=== PATIENT | female | born 1990 | race Caucasian/White ===

== ENCOUNTER 2024-06-16 10:38 | Outpatient (OUT) | payer OTHER, SELFPAY ==
--- NOTE | 2024-06-16 10:40 | US_ITS ---
[address] [address] Patient Name: YADI BLAIR MRN: [facility]:[id number] date: 1990 Sex: F Assigned Patient Location: [facility] Current Patient Location: [facility] Accession/Order Number: [id number] Exam Date: 06/16/2024 10:41 Report Date: 06/16/2024 13:00 At the request of: ABBEY OG Procedure: US OB growth EXAMINATION: US OB growth HISTORY: METHADONE USE COMPARISON: No relevant comparison available. TECHNIQUE: Transabdominal sonographic examination was performed for obstetrical and evaluation. FINDINGS: Number: 1 Heart Rate: 135 bpm H.B. /min Amniotic Fluid Volume: 12.8 cm, largest fluid pocket 4.7 cm Breech presentation, longitudinal lie BIOMETRY: BPD: 7.49 cm; 30 weeks 0 days; 23 % HC: 28.49 cm; 31 weeks 2 days; 32.90 % AC: 26.41 cm; 30 weeks 4 days; 44.60 % FL: 5.62 cm; 29 weeks 4 days; 12.40 % EFW:1533.18 g; 27.20 % FL/AC: 21.28 FL/BPD: 75.03 HC/AC: 1.08 GESTATIONAL AGE: Age by EDC: 30 weeks 4 days JESSI by EDC: 2024-08-21 Age by current US: 30 weeks 3 days JESSI by current US: 2024-08-22 US/US OB growth IMPRESSION: Normal interval growth. *Reference: [facility] Practice Guideline for the performance of Obstetric Ultrasound Examinations, April 12, 2007. Electronically authenticated by: PRIYANKA TAO Date: 06/16/2024 13:00
== END 2024-06-16 10:39 | disposition home or self-care (01) ==
LOC: NOMS 10:38
PROVIDERS: Visit Provider Physician Assistant
DX: Z34.93 Encounter for supervision of normal pregnancy, unspecified, third trimester (principal); F11.90 Opioid use, unspecified, uncomplicated; Z3A.30 30 weeks gestation of pregnancy
CPT/HCPCS: 76816

== ENCOUNTER 2024-08-16 05:52 | Inpatient (IN) | payer OTHER, SELFPAY ==
[2024-08-16] VITALS (33 sets, daily range): BP systolic 94–125; BP diastolic 41–79; PULSE 60–87; TEMP 36.2–36.7; O2SAT 94–100
--- OUTSIDE RECORDS SUMMARY | 2024-08-16 05:57 | XMS_ITS | CCD ---
Author Organization [facility] Care Team Providers Care Travel Nurse Name Role Phone HERNANDEZ TORRES Admitting Unavailable HERNANDEZ TORRES Attending Unavailable HERNANDEZ TORRES Consulting Unavailable PRIYANKA TAO V Consulting Unavailable NO FAMILY, PHYSICIAN Primary Care Provider Unava ilable DO Gary Orantes Emergency Provider [phone] MD Chris Draper Emergency Provider [phone] Hernandez ELON Primary Care Physician Demetra Matthews Unavailable Unavailable BROOK DUMONT Primary Care Physician [phone] Bakari Jarquin Attending Unavailable Hilaria Ward Attending Unavailable Tito Fortune Attending Unavailable NO FAMILY, PHYSICIAN Primary Care Provider Unava ilable DO Bj Mchugh Emergency Provider [phone] NO FAMILY, PHYSICIAN Primary Care Provider Unava ilable ALBA Ugarte Emergency Provider Unallocated , Princes Provider Primary Care Provi jaclyn Unallocated MD Noms Provider Primary Care Provi jaclyn Shea Og Admitting Unavailable Shea Og Attending Unavailable NO FAMILY, PHYSICIAN Primary Care Unavailable NO FAMILY, PHYSICIAN Primary Care Unavailable Alfredo Fuchs Admitting Unavailable Alfredo Fuchs Attending Unavailable NO FAMILY, PHYSICIAN Primary Care Unavailable Wanda Kilgore Admitting Unavailable Wanda Kilgore Attending Unavailable NO FAMILY, PHYSICIAN Primary Care Unavailable Yassine Ugarte Admitting Unavailable Yassine Ugarte Attending Unavailable NO FAMILY, PHYSICIAN Primary Care Provider Unava ilable Alfredo Fuchs DO Attending Provider Wanda Kilgore MD Attending Provider Josette LEON, Shea Tejeda Attending Provider [phone] SHEA OG Attending Unavailable SHEA OG Attending Unavailable PEDRO JARA Attending Unavailable UNALLOCATED, NOMS PROVIDER Referring Unava ilable KIMBERLY GONZALES Attending Unavailable PEDRO JARA Attending Unavailable ALFREDO FUCHS Attending Unavailable JOSETTE, SHEA Attending Unavailable JOSETTE, SHEA Attending Unavailable SHEA OG Attending Unavailable SHEA OG Attending Unavailable ALFREDO FUCHS Attending Unavailable Allergies Allergy Classification Reported Allergen(s) Allergy Type Date of Onset Reaction(s) Facility (8 sources) Naproxen; Translations: [naproxen] Drug Allergy 4 Unknown Reaction [facility] Repository (8 sources) traZODone; Translations: [traZODone] Drug Allergy 4 Rash [facility] Repository (20 sources) Naproxen; Translations: [naproxen] Drug Allergy 4 Unknown cause [facility] (20 sources) traZODone; Translations: [trazodone] Drug Allergy 4 Vomiting (disorder), Eruption of skin (disorder), Rash, GI intolerance [facility] (1 source) Naproxen Drug Allergy [address] [facility] Repository (1 source) traZODone Drug Allergy [address] [facility] Repository Medications Current Medications Medication Drug Class(es) Dates Sig (Normalized) Sig (Original) cefuroxime 250 mg oral tablet (10 sources) Cephalosporin Antibacterial Start: 03-04-2024 End: 06-16-2024 take 1 tablet by mouth once daily cefuroxime (Ceftin) 250 MG tablet Indications: Acne vulgaris Take 1 tablet, by mouth, once daily, 30 days 30 tablet 11 03/04/2024 06/16/2024 Discontinued clobetasol propionate 0.5 mg/ml topical solution (20 sources) Corticosteroid Start: 06-30-2024 clobetasol (Temovate) 0.05 % external solution Indications: Psoriasis vulgaris (CMS/HCC) Apply to scalp sparingly once a day as needed for itching. Hold when clear or asymptomatic/30 day supply 25 mL 1 06/30/2024 Active Start: 03-04-2024 End: 06-16-2024 clobetasol (Temovate) 0.05 % external solution Indications: Psoriasis vulgaris (CMS/HCC) Apply to scalp, once a day when flared, do not use one the face, groin, or underarms, 30 day supply 50 mL 11 03/04/2024 06/16/2024 Discontinued Start: 03-31-2022 End: 12-19-2023 Clobetasol 0.05 % shampoo Di scontinued 1 APPLIC TOPICAL Daily March 30, 2022 11:00pm December 19, 2023 1:35pm lidocaine 0.05 mg/mg medicated patch (3 sources) Antiarrhythmic, Amide Local Anesthetic Start: 08-07-2022 Lidoderm 5% Patch 1 patch(es), Topical, Daily, 7 EA, Refill(s) 0, apply 12 hours on and 12 hours off daily, [facility] #[id number], 165.1, cm, 09/08/22 14:14:00 EST, Height/Length Dosing, 55, kg, 09/08/22 14:14:00 EST, Weight Dosing Start Date: 09/08/22 Status: Ordered Medical [facility] (2 sources) Start: 04-02-2022 Medical [facility] Start Date: 04/02/22 Status: Ordered Methadone (20 sources) Opioid Agonist Start: 08-26-2021 methadone Refi lls(s) 0 Start Date: 08/26/21 Status: Ordered Start: 05-16-2020 take 170 mg by mouth once tomasz y Methadone 10 mg/5 mL Solution Active 170 MG PO Daily May 16, 2020 12:00am Start: 05-16-2020 take 160 mg by mouth once tomasz y Methadone Active 160 MG PO Daily May 16, 2020 12:00am methadone (Metha dose) 40 MG dispersible tablet 1 (one) time each day at the same time Active methocarbamol 750 mg oral tablet (2 sources) Muscle Relaxant Start: 09-08-2022 End: 09-11-2022 take 1 tablet by mouth three times daily Robaxin-750 oral tablet 1,500 mg = 2 tab(s), Oral, TID, X 3 day(s), # 18 tab(s), Refills(s) 0, Pharmacy: [facility] #[id number], 165.1, cm, 09/08/22 14:14:00 EST, Height/Length Dosing, 55, kg, 09/08/22 14:14:00 EST, Weight Dosing Start Date: 09/08/22 Stop Date: 09/11/22 Status: Ordered Start: 08-07-2022 End: 08-10-2022 take 1 tablet by mouth three times daily Robaxin 500 mg Tab 500 mg = 1 tab(s), Oral, TID, X 3 day(s), # 9 tab(s), Refills(s) 0, Pharmacy: [facility] #[id number], 164, cm, 08/07/22 3:28:00 EST, Height/Length Dosing, 53, kg, 08/07/22 3:28:00 EST, Weight Dosing Start Date: 08/07/22 Stop Date: 08/10/22 Status: Ordered multivitamin () 27-0.8 MG tablet (14 sources) Start: 02-02-2024 End: 06-16-2024 take 1 tablet by mouth once daily multivitamin () 27-0.8 MG tablet Indications: care, subsequent in first trimester Take 1 tablet by mouth Daily 30 tablet 11 02/02/2024 06/16/2024 Discontinued Start: 02-02-2024 End: 02-01-2025 take 1 tablet by mouth once daily multivitamin () 27-0.8 MG tablet Indications: care, subsequent in first trimester Take 1 tablet by mouth Daily 30 tablet 11 02/02/2024 02/01/2025 Active MV & Min w/FA-DHA ( Gummies) 0.18-25 MG chewable tablet (7 sources) Start: 05-03-2024 End: 06-16-2024 MV & Min w/FA-DHA ( Gummies) 0.18-25 MG chewable tablet Indications: 24 weeks gestation of Chew 1 tablet Daily 30 tablet 11 05/03/2024 06/16/2024 Discontinued Start: 05-03-2024 MV & Min w/FA-DHA ( Gummies) 0.18-25 MG chewable tablet Indications: 24 weeks gestation of Chew 1 tablet Daily 30 tablet 11 05/03/2024 Active Completed/Discontinued Medications Medication Drug Class(es) Dates Sig (Normalized) Sig (Original) [id number] 200 actuat albuterol 0.09 mg/actuat metered dose inhaler (3 sources) beta2-Adrenergic Agonist Start: 07-15-2023 End: 12-19-2023 take 1 puff(s) by inhalation every four to six hours as needed for wheezing Albuterol Sulfate (Proventil Hfa) 90 mcg/actuation HFA aerosol inhaler Discontinued 2 PUFF INHALATION EVERY 4-6 HOURS as needed for Shortness Of Breath Or Wheezing July 15, 2023 12:00am December 19, 2023 1:35pm with spacer amoxicillin 500 mg oral capsule (5 sources) Penicillin-class Antibacterial Start: 03-31-2022 End: 03-31-2022 Amoxicillin 500 mg capsule Discontinued MG March 30, 2022 11:00pm March 31, 2022 9:23pm Start: 03-31-2022 End: 03-31-2022 Amoxicillin Discontinued MG March 31, 2022 12:00am March 31, 2022 10:23pm benzonatate 200 mg oral capsule (3 sources) Non-narcotic Antitussive Start: 07-15-2023 End: 12-19-2023 take 1 capsule by mouth three times daily as needed for cough Benzonatate 200 mg capsule Discontinued 200 MG PO Three times daily as needed for Cough July 15, 2023 12:00am December 19, 2023 1:35pm fluocinonide 0.5 mg/ml topical cream (5 sources) Corticosteroid Start: 03-31-2022 End: 12-19-2023 Fluocinonide 0.05 % cream Discontinued 1 APPLIC TOPICAL Daily March 30, 2022 11:00pm December 19, 2023 1:36pm ibuprofen 600 mg oral tablet (12 sources) Nonsteroidal Anti-inflammatory Drug Start: 01-19-2021 End: 04-20-2021 take 1 tablet by mouth every six hours as needed for pain Ibuprofen 600 mg tablet Discontinued 600 MG PO Q6H as needed for pain January 18, 2021 11:00pm April 20, 2021 6:08pm Start: 05-16-2019 End: 05-16-2020 take 1 tablet by mouth every six hours as needed for pain Ibuprofen 600 mg tablet Discontinued 600 MG PO Q6H as needed for pain May 16, 2019 12:00am May 16, 2020 12:52am mometasone furoate 1 mg/ml topical cream (5 sources) Corticosteroid Start: 03-31-2022 End: 12-19-2023 Mometasone 0.1 % cream Discontinued 1 APPLIC TOPICAL Daily March 30, 2022 11:00pm December 19, 2023 1:36pm ondansetron 4 mg disintegrating oral tablet (20 sources) Serotonin-3 Receptor Antagonist Start: 07-15-2023 End: 12-19-2023 Ondansetron 4 mg tablet,disintegratin g Discontinued 4 MG PO every 6 to 8 hours as needed for Nausea July 15, 2023 12:00am December 19, 2023 1:36pm Start: 03-28-2022 End: 03-31-2022 take 1 tablet by mouth every eight hours as needed for nausea and vomiting Ondansetron 8 mg tablet,disintegrating Discontinued 8 MG PO Q8H as needed for nausea and vomiting 04 15March 27, 2022 11:00pm March 31, 2022 8:50pm Start: 01-12-2022 End: 03-31-2022 take 1 tablet by mouth every six hours as needed for nausea and vomiting Ondansetron 4 mg tablet,disintegrating Discontinued 4 MG PO Q6H as needed for nausea and vomiting January 11, 2022 11:00pm March 31, 2022 8:50pm Start: 04-20-2021 End: 01-12-2022 take 1 tablet by mouth every eight hours as needed for nausea and vomiting Ondansetron Hcl (Zofran) 4 mg tablet Discontinued 4 MG PO Q8H as needed for nausea and vomiting 6 April 19, 2021 11:00pm January 12, 2022 6:07am predniSONE 20 mg oral tablet (4 sources) Start: 12-19-2023 End: 07-01-2024 Prednisone 20 mg tablet Discontinued MG TABLET December 18, 2023 11:00pm July 01, 2024 3:23pm Start: 12-19-2023 Prednisone Act mark MG TABLET December 19, 2023 12:00am Start: 09-08-2022 End: 09-13-2022 take 3 tablets by mouth once daily predniSONE 20 mg Tab 60 mg = 3 tab(s), Oral, Daily, X 5 day(s), # 15 tab(s), Refills(s) 0, Pharmacy: [facility] #[id number], 165.1, cm, 09/08/22 14:14:00 EST, Height/Length Dosing, 55, kg, 09/08/22 14:14:00 EST, Weight Dosing Start Date: 09/08/22 Stop Date: 09/13/22 Status: Ordered Start: 08-07-2022 End: 08-12-2022 take 1 tablet by mouth once daily predniSONE 50 mg Tab 50 mg = 1 tab(s), Oral, Daily, X 5 day(s), # 5 tab(s), Refills(s) 0, Pharmacy: [facility] #[id number], 164, cm, 08/07/22 3:28:00 EST, Height/Length Dosing, 53, kg, 08/07/22 3:28:00 EST, Weight Dosing Start Date: 08/07/22 Stop Date: 08/12/22 Status: Ordered promethazine hydrochloride 25 mg oral tablet (6 sources) Phenothiazine Start: 05-16-2020 End: 01-12-2022 take 1 tablet by mouth every six hours as needed for nausea Promethazine 25 mg Tablet Discontinued 25 MG PO Q6H as needed for Nausea May 16, 2020 12:00am January 12, 2022 6:07am Problems Active Problems Problem Classification Problem Date Documented Da te Episodic/Chronic Administrative/social admission (2 sources) Drug seeking behavior 08-26-2021 Episodic Anxiety disorders (2 sources) Anxiety 08-07-2022 Chronic Cardiac dysrhythmias (2 sources) Tachycardia 04-02-2022 Episodic Conditions associated with dizziness or vertigo (6 sources) Dizziness; Translations: [Dizziness and giddiness] 04-02-2022 Episodic Contraceptive and procreative management (2 sources) Sterilization requested; Translations: [Encounter for sterilization] 08-03-2024 Episodic Deficiency and other anemia (2 sources) Anemia 04-02-2022 Episodic Early or threatened labor (3 sources) False labor at or after 37 completed weeks of gestation; Translations: [FALSE LABOR AT/AFTR 37 CMPL WK GEST] Onset: 05-13-2019 Episodic distress and abnormal forces of labor (6 sources) Precipitate labor - delivered; Translations: [Precipitate labor] 05-14-2019 Episodic Immunizations and screening for infectious disease (8 sources) Patient encounter status; Translations: [Encounter for screening for diabetes mellitus] 05-03-2024 Episodic Influenza (3 sources) Influenza; Translations: [Influenza due to unidentified influenza virus with other respiratory manifestations] 07-15-2023 Episodic Malaise and fatigue (2 sources) Fatigue 04-02-2022 Episodic Malposition; malpresentation (2 sources) Breech presentation; Translations: [Maternal care for breech presentation, not applicable or unspecified] 08-03-2024 Episodic Menstrual disorders (3 sources) Missed period; Translations: [Irregular menstruation, unspecified] Onset: 06-15-2024 05-03-2024 Chronic Nausea and vomiting (18 sources) Nausea and vomiting; Translations: [Nausea with vomiting, unspecified] 01-12-2022 Episodic Other complications of (6 sources) No care; Translations: [Supervision of with insufficient care, unspecified trimester] 05-14-2019 Episodic Other complications of (1 source) Other specified related conditions, third trimester; Translations: [Other specified related conditions, third trimester] Onset: 07-01-2024 Episodic Other endocrine disorders (2 sources) Hypoglycemia 04-02-2022 Chronic Other female genital disorders (6 sources) History of past delivery; Translations: [Status post vaginal delivery] 01-19-2021 Episodic Other inflammatory condition of skin (2 sources) Guttate psoriasis; 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-2024 Chronic Other inflammatory condition of skin (2 sources) Psoriasis vulgaris; Translations: [Psoriasis vulgaris] 03-04-2024 Chronic Other lower respiratory disease (5 sources) Dyspnea; Translations: [Dyspnea, unspecified] 03-31-2022 Episodic Other and delivery including normal (20 sources) Term delivered; Translations: [Encounter for full-term uncomplicated delivery] Onset: 07-14-2024 05-14-2019 Episodic Other skin disorders (2 sources) Eruption; Translations: [Rash and other nonspecific skin eruption] 12-19-2023 Episodic Residual codes; unclassified (2 sources) Flushing 04-02-2022 Episodic Residual codes; unclassified (2 sources) Gestation period, 24 weeks; Translations: [24 weeks gestation of ] 05-03-2024 Episodic Residual codes; unclassified (2 sources) Gestation period, 28 weeks; Translations: [28 weeks gestation of ] 06-02-2024 Episodic Residual codes; unclassified (2 sources) Gestation period, 30 weeks; Translations: [30 weeks gestation of ] 06-16-2024 Episodic Residual codes; unclassified (2 sources) Gestation period, 33 weeks; Translations: [33 weeks gestation of ] 07-04-2024 Episodic Residual codes; unclassified (2 sources) Gestation period, 35 weeks; Translations: [35 weeks gestation of ] 07-20-2024 Episodic Residual codes; unclassified (2 sources) Gestation period, 37 weeks; Translations: [37 weeks gestation of ] 08-03-2024 Episodic Residual codes; unclassified (2 sources) Gestation period, 38 weeks; Translations: [38 weeks gestation of ] 08-10-2024 Episodic Residual codes; unclassified (1 source) 38 weeks gestation of ; Translations: [38 WEEKS GESTATION OF ] Onset: 06-06-2019 Spondylosis; intervertebral disc disorders; other back problems (2 sources) Pain in thoracic spine; Translations: [Pain in thoracic spine] Onset: 08-07-2022 Episodic Substance-related disorders (14 sources) Drug use complicating , third trimester; Translations: [Opioid dependence, uncomplicated] Onset: 06-06-2019 05-14-2019 Chronic Comment on above: Added secondary to d ocumentation in Social History. Substance-related disorders (4 sources) Finding related to substance use; Translations: [Opioid use, unspecified, uncomplicated] 06-02-2024 Episodic Unclassified (20 sources) OB Reminders Onset: 03-04-2024 03-04-2024 Viral infection (6 sources) Viral disease; Translations: [Viral infection, unspecified] 04-20-2021 Episodic Past or Other Problems Problem Classification Problem Date Documented Da te Episodic/Chronic Other complications of (2 sources) Finding related to ; Translations: [ related conditions, unspecified, second trimester] 02-29-2024 Episodic Other skin disorders (2 sources) Acne vulgaris; Translations: [Acne vulgaris] 03-04-2024 Episodic Other skin disorders (1 source) Rash and other nonspecific skin eruption; Translations: [Rash and other nonspecific skin eruption] Onset: 12-19-2023 Episodic Residual codes; unclassified (2 sources) Gestation period, 15 weeks; Translations: [15 weeks gestation of ] 02-29-2024 Episodic NEGATED: Highlighted row has been ruled out!Unclassified (20 sources) No known active problems 03-04-2024 Results Test Name Value Interpretation Reference Range Facility Urinalysis macro (dipstick) panel (U)on 08-10-2024 Bilirubin, UA Negative Negative - 4(70) +++ mg/dL [facility] Blood, UA Negative Negative - 50 Loi/mcL [facility] Clarity, UA Clear [facility] Color, UA Yellow [facility] Glucose, UA Negative Negative - 1999(110) ++++ mg/dL [facility] Interpretation and review of laboratory results Abnormal [facility] Ketones, UA Positive Negative - 160(16) ++++ mg/dL [facility] Leukocytes, UA Trace Negative - 500+++ Kwaku/mcL [facility] Nitrite, UA Negative Negative - Positive [facility] pH, UA 6 5 - 9 [facility] Protein, UA Trace Negative - 1999(20) ++++ mg/dL [facility] Spec Grav, UA 1.03 1 - 1.03 [facility] Urobilinogen, UA 0.2 0.2 - 12 mg/dL [facility] Urinalysis macro (dipstick) panel (U)on 08-03-2024 Bilirubin, UA Negative Negative - 4(70) +++ mg/dL [facility] Blood, UA Negative Negative - 50 Loi/mcL [facility] Clarity, UA Clear [facility] Color, UA Yellow [facility] Glucose, UA Positive Negative - 1999(110) ++++ mg/dL [facility] Interpretation and review of laboratory results Abnormal [facility] Ketones, UA Positive Negative - 160(16) ++++ mg/dL [facility] Leukocytes, UA Positive Negative - 500+++ Kwaku/mcL [facility] Nitrite, UA Negative Negative - Positive [facility] pH, UA 7 5 - 9 [facility] Protein, UA Positive Negative - 1999(20) ++++ mg/dL [facility] Spec Grav, UA 1.03 1 - 1.03 [facility] Urobilinogen, UA 1.0 0.2 - 12 mg/dL [facility] Urinalysis macro (dipstick) panel (U)on 07-20-2024 Bilirubin, UA Positive Negative - 4(70) +++ mg/dL [facility] Comment on above: small Blood, UA Negative Negative - 50 Loi/mcL [facility] Clarity, UA Clear [facility] Color, UA Yellow [facility] Glucose, UA Positive Negative - 1999(110) ++++ mg/dL [facility] Comment on above: 100 Interpretation and review of laboratory results Abnormal [facility] Ketones, UA Negative Negative - 160(16) ++++ mg/dL [facility] Leukocytes, UA Negative Negative - 500+++ Kwaku/mcL [facility] Nitrite, UA Negative Negative - Positive [facility] pH, UA 6 5 - 9 [facility] Protein, UA Positive Negative - 1999(20) ++++ mg/dL [facility] Comment on above: 30 Spec Grav, UA 1.03 1 - 1.03 [facility] Urobilinogen, UA 1.0 0.2 - 12 mg/dL [facility] US OB limitedon 07-14-2024 US OB limited [facility] [place] [address] Ultrasound Report Signed Patient: Cyndie Blair MR#: [id number] : 1990 Acct:[id number] Age/Sex: 34 / F ADM Date: 07/14/24 Loc: Room: Type: [facility] Attending Dr: Shea Og PA-C Ordering Provider: Shea GARBER Date of Service: 07/14/24 US/US OB limited: Z34.93,F11.90 Copies to: Shea GARBER US OB limited 07/14/2024 2:05 PM SIGNS AND SYMPTOMS: Check growth COMPARISON: None. TECHNIQUE: Limited pelvic ultrasound using transvesical sonography. FINDINGS: An intrauterine is identified. The visualized fetus has an estimated gestational age of 4 weeks and 2 days. A heart rate is identified at 161 bpm. A normal amount of amniotic fluid is present. There is no evidence for placenta previa or subchorionic hemorrhage. Estimated weight is 5 lbs. 4 oz. Pelvic survey reveals no gross abnormalities. The cervix measures 3.3 cm in length. US/US OB limited IMPRESSION: Single live IUP with an estimated gestational age of 34w2d weeks/days with an estimated date of delivery of 08/23/2024 and normal heart rate. Estimated weight is 5 lbs. 4 oz. Impression dictated by: David Way M.D.07/14/2024 9:14 PM Dictation Location: [facility] Tech: Maria C Colvin Transcribed By: AHMET 07/14/242113 Dictated By: David Way II, MD 07/14/242110 Signed By: 07/14/242113 Normal [facility] Urinalysis macro (dipstick) panel (U)on 07-04-2024 Bilirubin, UA Negative Negative - 4(70) +++ mg/dL [facility] Blood, UA Negative Negative - 50 Loi/mcL [facility] Clarity, UA Clear [facility] Color, UA Yellow [facility] Glucose, UA Negative Negative - 1999(110) ++++ mg/dL [facility] Interpretation and review of laboratory results Abnormal [facility] Ketones, UA Positive Negative - 160(16) ++++ mg/dL [facility] Comment on above: trace Leukocytes, UA Trace Negative - 500+++ Kwaku/mcL [facility] Nitrite, UA Negative Negative - Positive [facility] pH, UA 6.5 5 - 9 [facility] Protein, UA Negative Negative - 1999(20) ++++ mg/dL [facility] Spec Grav, UA 1.03 1 - 1.03 [facility] Urobilinogen, UA 1.0 0.2 - 12 mg/dL [facility] Urinalysis macro (dipstick) panel (U)on 06-16-2024 Bilirubin, UA Negative Negative - 4(70) +++ mg/dL [facility] Blood, UA Negative Negative - 50 Loi/mcL [facility] Clarity, UA Clear [facility] Color, UA Aubrie [facility] Glucose, UA Positive Negative - 1999(110) ++++ mg/dL [facility] Comment on above: 100 Interpretation and review of laboratory results Abnormal [facility] Ketones, UA Negative Negative - 160(16) ++++ mg/dL [facility] Leukocytes, UA Negative Negative - 500+++ Kwaku/mcL [facility] Nitrite, UA Negative Negative - Positive [facility] pH, UA 7 5 - 9 [facility] Protein, UA Negative Negative - 2000(20) ++++ mg/dL [facility] Spec Grav, UA 1.03 1 - 1.03 [facility] Urobilinogen, UA 0.2 0.2 - 12 mg/dL [facility] A1C with Estimated Average G luon 06-15-2024 Glucose [Mass/Vol] 105 mg/dL Normal [facility] Comment on above: Result Comment: PERF ORMED BY: [place] [address] PATHOLOGIST GUM COOK EDD SALINAS M.D. Performed By: #### R RI W RFX, HCV RX PCR #### [facility] , #### CBC, A1C WT eA #### [facility] [address] [place] [address] HbA1c (Bld) [Mass fraction] 5.3 % Normal 4.3-5.6 [facility] Comment on above: Result Comment: Incr eased risk for diabetes: 5.7 - 6.4 diabetes: >6.4 glycemic control for adults with diabetes: <7.0 Performed By: #### R RI W RFX, HCV RX PCR #### [facility] , #### CBC, A1C WT eA #### [facility] [address] Basophils Auto (Bld) [#/Vol] Ordered By: Alfredo Fuchs on 06-15-2024 Basophils (Bld) [#/Vol] Automated basoph il count 0.0-0.[address] [facility] Basophils/100 WBC Auto (Bld) Ordered By: Alfredo Fuchs on 06-15-2024 Basophils/100 WBC (Bld) Automated basoph il % . [facility] Blood estimated average gluc ose determination by estimation from glycated hemoglobinOrdered By: Alfredo Fuchs on 06-15-2024 Average glucose Estimated from glycated hemoglobin (Bld) [Mass/Vol] Glucose mean value [Mass/volume] in Blood Estimated from glycated hemoglobin [facility] Complete Blood Count Auto Di ffon 06-15-2024 Basophils (Bld) [#/Vol] 0.0 10*3/uL Normal 0.0-0.2 [facility] Comment on above: Result Comment: PERF ORMED BY: [place] [address] PATHOLOGIST GUM COOK EDD SALINAS M.D. Performed By: #### R RI W RFX, HCV RX PCR #### [facility] , #### CBC, A1C WTH eA #### [address] Basophils/100 WBC (Bld) 0.3 % Normal . T ramiro [facility] Comment on above: Performed By: #### R RI W RFX, HCV RX PCR #### [facility] , #### CBC, A1C WTH eA #### [place] [address] [place] Eosinophils (Bld) [#/Vol] 0.1 10*3/uL Normal 0.0-0.45 [facility] Comment on above: Performed By: #### R RI W RFX, HCV RX PCR #### [facility] , #### CBC, A1C WTH eA #### [place] [address] [place] Eosinophils/100 WBC (Bld) 0.8 % Normal . [facility] Comment on above: Performed By: #### R RI W RFX, HCV RX PCR #### [facility] , #### CBC, A1C WTH eA #### [address] Erythrocyte distribution width (RBC) [Ratio] 16.9 % High 11.9-15.3 [facility] Comment on above: Performed By: #### R RI W RFX, HCV RX PCR #### [facility] , #### CBC, A1C WTH eA #### [address] Hematocrit (Bld) [Volume fraction] 30.1 % Low 34.0-46.4 [facility] Comment on above: Performed By: #### R RI W RFX, HCV RX PCR #### [facility] , #### CBC, A1C WTH eA #### [address] Hemoglobin (Bld) [Mass/Vol] 9.3 g/dL Low 11.8-15.4 [facility] Comment on above: Performed By: #### R RI W RFX, HCV RX PCR #### [facility] , #### CBC, A1C WTH eA #### [address] Lymphocytes (Bld) [#/Vol] 1.0 10*3/uL Normal 1.00-4.8 [facility] Comment on above: Performed By: #### R RI W RFX, HCV RX PCR #### [facility] , #### CBC, A1C WTH eA #### [address] Lymphocytes/100 WBC (Bld) 15.0 % Normal . [facility] Comment on above: Performed By: #### R RI W RFX, HCV RX PCR #### [facility] , #### CBC, A1C WTH eA #### [address] MCH (RBC) [Entitic mass] 22.4 pg Low 24.7-34.3 [facility] Comment on above: Performed By: #### R RI W RFX, HCV RX PCR #### [facility] , #### CBC, A1C WTH eA #### [place] [address] [place] MCV (RBC) [Entitic vol] 72.3 fL Low 80-100 [facility] Comment on above: Performed By: #### R RI W RFX, HCV RX PCR #### [facility] , #### CBC, A1C WTH eA #### [address] Mean Corpuscular HGB Conc 31.0 g/dL Low 32.0-35.0 [facility] Comment on above: Performed By: #### R RI W RFX, HCV RX PCR #### [facility] , #### CBC, A1C WTH eA #### [address] Monocytes (Bld) [#/Vol] 0.3 10*3/uL Normal 0.0-0.8 [facility] Comment on above: Performed By: #### R RI W RFX, HCV RX PCR #### [facility] , #### CBC, A1C WTH eA #### [place] [address] [place] Monocytes/100 WBC (Bld) 5.0 % Normal . [facility] Comment on above: Performed By: #### R RI W RFX, HCV RX PCR #### [facility] , #### CBC, A1C WTH eA #### [place] [address] [place] Neutrophils (Bld) [#/Vol] 5.5 10*3/uL Normal 1.8-7.7 [facility] Comment on above: Performed By: #### R RI W RFX, HCV RX PCR #### [facility] , #### CBC, A1C WTH eA #### [place] [address] [place] Neutrophils/100 WBC (Bld) 78.9 % Normal . [facility] Comment on above: Performed By: #### R RI W RFX, HCV RX PCR #### [facility] , #### CBC, A1C WTH eA #### [place] [address] [place] NRBC% 0.1 /100{WBC} Normal 0-0.5 [facility] Comment on above: Performed By: #### R RI W RFX, HCV RX PCR #### [facility] , #### CBC, A1C WTH eA #### [address] Platelet mean volume (Bld) [Entitic vol] 8.7 fL Normal 6.3-10.7 [facility] Comment on above: Performed By: #### R RI W RFX, HCV RX PCR #### [facility] , #### CBC, A1C WTH eA #### [place] [address] [place] Platelets (Bld) [#/Vol] 158 10*3/uL Normal 150-450 [facility] Comment on above: Performed By: #### R RI W RFX, HCV RX PCR #### [facility] , #### CBC, A1C WTH eA #### [place] [address] [place] RBC (Bld) [#/Vol] 4.16 10*6/uL Normal 3.60-5.00 [facility] Comment on above: Performed By: #### R RI W RFX, HCV RX PCR #### [facility] , #### CBC, A1C WTH eA #### [place] [address] [place] WBC (Bld) [#/Vol] 7.0 10*3/uL Normal 3.8-11.6 [facility] Comment on above: Performed By: #### R RI W RFX, HCV RX PCR #### [facility] , #### CBC, A1C WTH eA #### [address] [place] [address] [facility] Diagnostic impression interp retation by molecular genetics method narrativeOrdered By: Alfredo Fuchs on 06-15-2024 Diagnostic impression Molgen Willian (Unsp spec) [Interp] Diagnostic impression [Interpretation] in Specimen Narrative . [facility] Comment on above: Positive HCV antibod y screen without the presence of HCVRNA is consistent with a resolved past infection or a falsepositive HCV antibody. Consider repeat testing after onemonth.Performed at: - [facility] [id number] Director: Anson Mason PhD, Phone: [phone] at: [facility] [id number] Director: Parvin Weber MD, Phone: [phone] Eosinophils Auto (Bld) [#/Vo l]Ordered By: Alfredo Fuchs on 06-15-2024 Eosinophils (Bld) [#/Vol] Automated eosinophil count 0.0-0.[address] [facility] Eosinophils/100 WBC Auto (Bl d)Ordered By: Alfredo Fuchs on 06-15-2024 Eosinophils/100 WBC (Bld) Automated eosinophil % . [facility] Erythrocyte distribution wid th Auto (RBC) [Ratio]Ordered By: Alfredo Fuchs on 06-15-2024 Erythrocyte distribution width (RBC) [Ratio] Erythrocyte distribution width [Ratio] by Automated count High 11.9-15.[address] [facility] Hematocrit Auto (Bld) [Volum e fraction]Ordered By: Alfredo Fuchs on 06-15-2024 Hematocrit (Bld) [Volume fraction] Hematocrit [Volume Fraction] of Blood by Automated count Low 34.0-46.[address] [facility] Hemoglobin A1c/Hemoglobin.to desean in BloodOrdered By: Alfredo Fuchs on 06-15-2024 HbA1c (Bld) [Mass fraction] Hemoglobin A1c percentage 4.3-5.[address] [facility] Comment on above: Increased risk for d iabetes: 5.7 - 6.4diabetes: >6.4glycemic control for adults with diabetes: <7.0 Hemoglobin [Mass/volume] in BloodOrdered By: Alfredo Fuchs on 06-15-2024 Hemoglobin (Bld) [Mass/Vol] Hemoglobin [Mass/volume] in Blood Low 11.8-15.[address] [facility] Hep C Ab wRfx to Qnt PCRon 1 08-16-2023 Hepatitis C Quantitation Not detected Normal . [facility] Comment on above: Performed By: #### R RI W RFX, HCV RX PCR #### [facility] , #### CBC, A1C WTH eA #### [address] Hepatitis C Virus Antibody Reactive Critically abnormal Non Reactive [facility] Comment on above: Performed By: #### R RI W RFX, HCV RX PCR #### [facility] , #### CBC, A1C WTH eA #### [address] Interpretation Comment Normal . [facility] Comment on above: Result Comment: Posi tive HCV antibody screen without the presence of HCV RNA is consistent with a resolved past infection or a false positive HCV antibody. Consider repeat testing after one month. Performed at: - [facility] [id number] Cpo: Anson Mason PhD, Phone: [phone] Performed at: - [facility] [id number] Cpo: Parvin Weber MD, Phone: [phone] PERFORMED BY: [place] [address] PATHOLOGIST GUM COOK EDD SALINAS M.D. Performed By: #### R RI W RFX, HCV RX PCR #### [facility] , #### CBC, A1C WTH eA #### [address] Test Information: Comment Normal . [facility] Comment on above: Result Comment: The quantitative range of this assay is 15 IU/mL to 100 million IU/mL. Performed By: #### R RI W RFX, HCV RX PCR #### [facility] , #### CBC, A1C WTH eA #### [facility] [address] Hepatitis C virus IgG Ab [Pr esence] in Serum or Plasma by ImmunoassayOrdered By: Alfredo Fuchs on 06-15-2024 HCV IgG IA Ql Hepatitis C virus IgG Ab [Presence] in Serum or Plasma by Immunoassay Abnormal Non Reactive [facility] Leukocytes [#/volume] correc dano for nucleated erythrocytes in Blood by Automated counOrdered By: Alfredo Fuchs on 06-15-2024 WBC corrected for nucl RBC Auto (Bld) [#/Vol] Leukocytes [#/volume] corrected for nucleated erythrocytes in Blood by Automated coun 3.8-11.[address] [facility] Lymphocytes Auto (Bld) [#/Vo l]Ordered By: Alfredo Fuchs on 06-15-2024 Lymphocytes (Bld) [#/Vol] Lymphocytes [#/volume] in Blood by Automated count 1.00-4.[address] [facility] Lymphocytes/100 WBC Auto (Bl d)Ordered By: Alfredo Fuchs on 06-15-2024 Lymphocytes/100 WBC (Bld) Lymphocytes/100 leukocytes in Blood by Automated count . [facility] MCH Auto (RBC) [Entitic mass ]Ordered By: Alfredo Fuchs on 06-15-2024 MCH (RBC) [Entitic mass] MCH [Entitic ma ss] by Automated count Low 24.7-34.[address] [facility] MCHC Auto (RBC) [Mass/Vol]Or dered By: Alfredo Fuchs on 06-15-2024 MCHC (RBC) [Mass/Vol] MCHC [Mass/volume] by Automated count Low 32.0-35.[address] [facility] MCV Auto (RBC) [Entitic vol] Ordered By: Alfredo Fuchs on 06-15-2024 MCV (RBC) [Entitic vol] MCV [Entitic volume] by Automated count Low 80-[address] [facility] Monocytes Auto (Bld) [#/Vol] Ordered By: Alfredo Fuchs on 06-15-2024 Monocytes (Bld) [#/Vol] Automated blood monocyte count 0.0-0.[address] [facility] Monocytes/100 WBC Auto (Bld) Ordered By: Alfredo Fuchs on 06-15-2024 Monocytes/100 WBC (Bld) Automated monocy te % . [facility] Neutrophils Auto (Bld) [#/Vo l]Ordered By: Alfredo Fuchs on 06-15-2024 Neutrophils (Bld) [#/Vol] Neutrophils [#/volume] in Blood by Automated count 1.8-7.[address] [facility] Neutrophils/100 WBC Auto (Bl d)Ordered By: Alfredo Fuchs on 06-15-2024 Neutrophils/100 WBC (Bld) Automated neutrophil % . [facility] No Panel InformationOrdered By: Alfredo Fuchs on 06-15-2024 Hepatitis C RNA Qnt (PCR) Test Info Comment . [facility] Comment on above: The quantitative ran ge of this assay is 15 IU/mL to 100million IU/mL. Nucleated erythrocytes [Pres ence] in Blood by Automated countOrdered By: Alfredo Fuchs on 06-15-2024 Nucleated RBC Auto Ql (Bld) Nucleated erythrocytes [Presence] in Blood by Automated count 0-0.[address] [facility] Platelet mean volume Auto (B ld) [Entitic vol]Ordered By: Alfredo Fuchs on 06-15-2024 Platelet mean volume (Bld) [Entitic vol] Platelet mean volume [Entitic volume] in Blood by Automated count 6.3-10.[address] [facility] Platelets Auto (Bld) [#/Vol] Ordered By: Alfredo Fuchs on 06-15-2024 Platelets (Bld) [#/Vol] Platelets [#/volume] in Blood by Automated count 150-[address] [facility] RBC Auto (Bld) [#/Vol]Ordere d By: Alfredo Fuchs on 06-15-2024 RBC (Bld) [#/Vol] Erythrocytes [#/volume] in Blood by Automated count 3.60-5.[address] [facility] RPR w/rfx to Quant TP Abson 06-15-2024 RPR, Rfx Quant RPR Non-Reactive Normal Non Reactive Th e [facility] Comment on above: Result Comment: Perf ormed at: CB - [facility] [address] [id number] Cpo: Anson Mason PhD, Phone: [phone] PERFORMED BY: [place] [address] PATHOLOGIST GUM COOK EDD SALINAS M.D. Performed By: #### R RI W RFX, HCV RX PCR #### [facility] , #### CBC, A1C WTH eA #### [address] Serum RPR testOrdered By: Stoney Fuchs on 06-15-2024 Reagin Ab RPR Ql (S) Reagin Ab [Presence] in Serum by RPR Non Reactive [facility] Comment on above: Performed at: CB - [facility] [address] [id number] Director: Anson Mason PhD, Phone: [phone] Serum or plasma hepatitis C virus RNA viral load by probe and target amplification meOrdered By: Alfredo Fuchs on 06-15-2024 HCV RNA SHYANNE+probe [Log units/Vol] Hepatitis C virus RNA [log units/volume] (viral load) in Serum or Plasma by SHYANNE with . [facility] WBC Auto (Bld) [#/Vol]Ordere d By: Alfredo Fuchs on 06-15-2024 WBC (Bld) [#/Vol] Leukocytes [#/volume] in Blood by Automated count 3.8-11.[address] [facility] Urinalysis macro (dipstick) panel (U)on 06-02-2024 Bilirubin, UA Negative Negative - 4(70) +++ mg/dL [facility] Blood, UA Negative Negative - 50 Loi/mcL [facility] Clarity, UA Clear [facility] Color, UA Aubrie [facility] Glucose, UA Positive Negative - 2000(110) ++++ mg/dL [facility] Comment on above: 500 mg Interpretation and review of laboratory results Abnormal [facility] Ketones, UA Positive Negative - 160(16) ++++ mg/dL [facility] Comment on above: trace Leukocytes, UA Negative Negative - 500+++ Kwaku/mcL [facility] Nitrite, UA Negative Negative - Positive [facility] pH, UA 6 5 - 9 [facility] Protein, UA Negative Negative - 1999(20) ++++ mg/dL [facility] Spec Grav, UA 1.03 1 - 1.03 [facility] Urobilinogen, UA 0.2 0.2 - 12 mg/dL [facility] Urinalysis macro (dipstick) panel (U)on 05-03-2024 Bilirubin, UA Negative Negative - 4(70) +++ mg/dL [facility] Blood, UA Negative Negative - 50 Loi/mcL [facility] Clarity, UA Clear [facility] Color, UA Yellow [facility] Glucose, UA Negative Negative - 1999(110) ++++ mg/dL [facility] Interpretation and review of laboratory results Normal [facility] Ketones, UA Negative Negative - 160(16) ++++ mg/dL [facility] Leukocytes, UA Negative Negative - 500+++ Kwaku/mcL [facility] Nitrite, UA Negative Negative - Positive [facility] pH, UA 8 5 - 9 [facility] Protein, UA Negative Negative - 1999(20) ++++ mg/dL [facility] Spec Grav, UA 1.015 1 - 1.03 [facility] Urobilinogen, UA 1.0 0.2 - 12 mg/dL [facility] No Panel Informationon 03-01 Glucose, UA Negative Negative - 1999(110) ++++ mg/dL [facility] Interpretation and review of laboratory results Normal [facility] Protein, UA Trace Negative - 1999(20) ++++ mg/dL [facility] COVID CepheidOrdered By: Babs Mchugh on 07-14-2023 SARS-CoV-2 (COVID-19) Ab IA Ql Negative Negative [facility] Comment on above: This is a duplicate [employer] [place] Xpert Xpress CoV-2/Flu/RSV Plus RNA by RT-PCR result to be used for statistical tracking purpose only. SARS-CoV-2 (COVID-19) RNA SHYANNE+probe Ql (Unsp spec) [facility] Coding Summary.on 09-09-2022 Coding Summary. [id number] XVo7kXm+PGhlYWQ+PE1 MFCJsG24yhHMrqJ7JC7 uBSA6ZHEMGLSXBAG9CP C3bwES5OXucU7GmnkAv XufmwMVkFC51EEr9CHQ 6uAwhSWlexY5cnONuY2 j9EdUlXB73wU66TYaoN IKnGsZ1LkWfjlynvIYf D4wiChVjlUBcBuy+PHR hYmxlIHdpZHRoPScxMD WkFgFyvWltGM1dAx9bK GVyLWNvbGxhcHNlOiBj p3cgHMYzAVgyOM6tnDn sC2GjaDO3OVDtw6z1Ko 48dHI+NFUpHMC5rJicL Uwwf027YjCos5wnRRD4 hWByYFdrZNF9A32dg2X 0HUBtPOTsFRK0cQM7dR 7tdXndmvkqG1JdnBZlB mR5BDR1sEGwqM6waUmc mjvxpX7rLms+A32JEO7 SFWGEXG5GNlp2H0TtWc wvdHI+YN36UOObZD96e CPnwEZwh2vcbKh5JkJp UFKzOAI1pEpwAKhrx1H hXQNvU76fqPQju6Z5WE WifTgwmYOiImHbfEK5s Y9pFDwmjffss3wvppjy Sxtwm8tfhn73cD20K26 zVOflTQYiSUF5VGIeLL PmuDizon1poQ7pVu6+I Zvhw9jtd6kobQz8PvWu AVYoljGpjWvfAYB1l1I gYo71H0LkiXflm3ZcKd q0ee95gAUdm0C0iVM5M VxkHVOgmV1rMAftPwK9 APSaMyBhiI25oZWfYJt yAf8xxCqnyOlnIF8iEK EchjngYFNtwT6iZKKoj BFugThhOF9bEQDvzjkh y498TfZdYTU5CFXbfLO fD4YtcH9wOfHsRZTjTQ EyQ8MkoJAeTOwwN985R BguDcP3PFHvszTsN8Kp YFKojJtzNgD5n1Q6Ie1 An1UwrietAOT9CBvpEV KpLkE5QaZkXmY7N4GwS jy0HTYmjKfgKD6vM5Ll GPHgrfclkutphPO9AOC eFDRehZ06tCIxIMpuKl 0xt5Y1e392LXSbJHCfu P11Tf2piBgrDRYtaMUS hP0iwdpqx6lanqwpWnJ hTXFhRWc6TZs4OFFdvN gfRoJtUVW7BdV7IDK4y AKldM8yqRoqogihqN6b Oyc+M58skC7rWYW1CPE 8bjlaLQJtjxOhDT74DR 08J4ZfZxhacKHjkWS+P TLjycYtfKorWY6qFnRj m8ota3UsZXspK3MpUAB wWKspPdy3OJYbOVM3uI H4rH2iKIFrPWegi2J3a AB2H7SmitAmdq2vf4iw QDYvTWcnK98owXEeq7X 9KRVsvOO5JCLuhFgnWh HrxJ82Ofj+PGNvbGdyb 7EcRotqj6kjn8pthBt4 IjMwJSIgdmFsaWduPSJ 6n6GdVb15L81yFFddZO RoPSIxNSUiIHZhbGlnb z1hwO6mYw2+PGNvbCB3 zTU9rR8yMHKmFcB5PWm sY211EqNhyQAcGvmye6 njg3bphMx3NzJiTEVpj aTqbJmmFXL4n2GhQe62 S55eMBbcUXYfHUTiJCR sLTTimUjvuf8toT1dZq 8+ID6ip9buch82gH57x HI+BYIjIRN5oWmzIXvh VOCpcK1jGHclKeH4SAA nHnDzsL05yFRoYIcxFj 6yyCtfnMupLC3bABMvb qsyq916YlIoi4paBFTh kFGpDOxyKIX4T48mq3U 3WKUkZTGcTSI9iTT3eT 1hbGlnbjogbGVmdDsgd oFemApjNUdjXBagZ523 IHRvcDsnPlBhdGllbnQ fWcJmGMo5K5PoMsa2TI WkpKwjYS9nbYFoBIwbH l9acPbxhVosNW1xXYRn zcmfp311ZjHgt9mhRBD qeZSwTLclLMJ7O77oc7 D8HAJhAOGxKHJ5iKH9m J5fhPyylpndaKScjXea nqIfsMcoBEnoJSzxN88 6IHRvcDsnPkJpcnRoIE NjsIC6HD63YX79cXObg 3V6rUK7I2BtQCIemdof wrxwgHJ1ACCnBCXwyQ3 7Fj5rfTgiVj4rHLUxIS F2XXGogTRxN8DbbO1nE gIeEKAbMQJxP4RthCRz LXadA918TMxyRiZ3BIJ bupVfP0MsSSFnkNumTl F0u2Q6Zo9ID6V7NF63A B32bSNey3N1zXG3V4Nm MKJskqnwgrdzmVD6WCB lJQOltP55Dq6iaWynJv 7iUJHrPEO5DBBwnHUiM 0MwiK9sLfHcYFKrCGDp S1PsfZIeYCvjQ370DSs iBcM7RNNtseCuV7NsYS AwkKszBkK8b6H9Jx9BJ Xe3NL70FL59fNXyk4C9 uQL7K8RjRVFjszjpody ilEJ2VGEhSZFglH76Pk 2xzHduUf7vFCOgCGA8W YLbiKPeN8IqgZ4tTfAo QFNiKGWgM1LwhSSxSHp cQ420WJnbGxR0SYHfxa MdH6VjHIBwjHbjTtQ4m 7R0Hx5VMDPvYF60ZHC2 lKC9CT62HR24F7KkLke vdGFibGU+PHRhYmxlIH dpZHRoPScxMDAlJyBzd TzjJF7oEp6eSAIvPYUy nPbcsPGoWnTzc8mpZTV oYOtfDL3vzWieI4ImmR B4TPZhr7b7Al17I17oR 3JvdXA+SXEnpXA7hML5 tI8aGjNyBbH3CZlsI99 7TcQbqUAbXxogd2kgv6 pdcLj9HeB0CVWopoPrf OpdUWL8g0HvEq14P08f IHdpZHRoPSIxNSUiIHZ jwDpcsx3svC7zTf4+PG LcfXT2nQX3bE0kKfNaA uG9ALnlC399CeCxhPQi Eaxgw3pww4ggfCv1FtG aQZHixgTdmMtlOQA9k5 DqNp66T5LkcEjbu4DhH kh2bb13wKKim4T6sKI3 Z9DlMDAplggbcQNcnTg dJE8eFEJpesfgRIYjaW 9vTOMkJ6x0ElYbXnV0H DjbL7VdhwS0LWQtpEKi RLzsXVR7J12gi6S7HDT hYAAbQGV7pVN6vK6uhW lnbjogbGVmdDsgdmVyd FimHZwyYGkiI556TIIg oNerGZCqcV9tZNZjrUJ eyVbgQK1lBCLhvhtzEn xPTkcsIEVMSVpBQkVUS WJCBS19OR43yMXmb4J8 yIJ7R9JhPTZcjmcmzxp dgEP1EXEcIDIekX53wO YvQTiyOn7ne8F6b907A QJsYPOytD09Cz3spXqv TFDegZDOlP8cczcbw2c sicnmOsMyELMiVKw1LF m0FDAvfQksIdRxCMU4E nG1CUY1vZApcF2qlVpi fvwvrP8vNxn+MTIvMTE tMYs1JLcabJW+PHRkIH E7eEqqAYciSTBvtJ7lI KWzD9a3VpZdYsX0CJcj U2CdEJZzcxkpMb69vN9 eAnJdZlE9TZhcQ6Nfso N7WFVjhNEsIPeiCOR1D 03at2N5SUWeVAZnMMY4 kSN1iQ4vgMbnegjxsBX mdDsgdmVydGljYWwtYW cnJ182BADhgAofEkJhW XxjGJZbMG45ZW98qZGo f6J6mVQ4R8ZgJYMqnxx uhnnekYN9MABbYSBgcP 49pFLbYOzvIf3qp3J1d 017USJiPGNfjW26Vt4s gXylRSKcxGXUtS4pzwd gg1vmwebjXfIqOWLnVY r8APi9JZOpaSzxOaDtO LJ0MrY6LIV2lQRuuK4t bKnjajptlB8tMom+RmV mYDxfMH26XZ04hUYle1 O4yMJ3M9EsJDVoahedy gyobCJ4UJIhCCDccZ38 pMJoRNrwGo4xv7K3i64 0TBIbVPVaeT61Yo7daO dsVCSfuHUJwZ3hukvkz 1yascpyUgNmAEJiHGi6 BVe0FFGhuOirToOnNEJ 8DkP7VVM7iMBssX0jeE opfmykgT4fXne+RW1lc ihutzK5CU72GD88W0Qk PjwvdGFibGU+PHRhYmx lIHdpZHRoPScxMDAlJy KrgRtmAR0fFu4aRHSkB DBuiEeaxQTrBiMpe6mh OPWjBLafTP9azDzyK3J xfBJ6SQQmg5r7Qc70V0 3pZ8FpzOD+VOStjBY1p OE5oP1oHqSgYnW3UWuw M344ZiQjsCEtDsiaw8w yk7qtmIh6SqIqBBZhoc IzpKlzLNT3g1EkRv42B 29sIHdpZHRoPSIyMCUi CYDauYeuat2dnX8mFn3 +BULmdWJ0dER9pV5zVb EtRtK4IPnsF918PoOli GTaItlsT42rG4JxwSE+ TDBaQtp7XJBfkKxtRO6 ozCIoCRrdNo0vUYZ4Dl XyYaLmZYahH5RmOKTvw wtrcukdpPV8DHPcPFWa vI09Jp7dlUykCj8zMBZ bKTP2TPCwnWGnI4GouJ 6pMhVgUSCqIFUxA7Ber HMeFThaR393VIkxRtL1 VEOpefMpG5UgUVPaoUa jLtQ5h2S5Dj8XrLrojI MzPI5bNgMuPYs8T8RuZ rk4JGOejQrpDC0rtXVk HMhnXd3qkXmllXduJJ4 xZTLztqcgu915MpHtg9 aoSWOscNBlXChaXSM0V 88ft9J0VTUrNKCrNDF6 jES3bX4ujEpvtgbimBK mdDsgdmVydGljYWwtYW taL509MSYtbHdqGvVGC iz0W7WfSkp2NURceAgz UF3srQUjQKlgBu5fuMa rlVmnOI2gFPMdkffol4 84RtBth7lgCOJvtIBiH HokRNC8Z99al9H4IVNf TGPdQVM3rJO0hT6faQx nbjogbGVmdDsgdmVydG jfAZkkFSguF237DDFos ZtcJf6JEod0V6LaEbx3 CVGjjBboME1smSQiGIa jNp7noYugfHxdAF9fZE Fhdycys147DbUkw0mvM JHmjRIxKSqrUFK9R25v h3E5PAHeTZWdLUM2eJL 3pW1piBdwekrsxEUibO sgdmVydGljYWwtYWxpZ 246IHRvcDsnPlBheWVy OjwvdGQ+RP04nu41S5I jNkbySrb5MUCvJRR7yA S3dB5wYFQeGOqeb7P6k GV1A3SzpuIwst3td5it YXBz (more content not included)... [facility] ED Note-[facility]ician[facility] 09-09-19 ED Note-Physician Basic Information Time Seen: Devin LEON Raul 09/08/2022 14:24 Chief Complaint pratient presents with right sided neck pain and into right shoulder. pt recently seen for same thing a few weeks ago History of Present Illness 32-year-old female comes to the ED for evaluation of right-sided neck pain. The patient states she had problems with neck pain intermittently for years. She was seen in ED a couple weeks ago and was medicated in the ED with improvement. She states she was given prescriptions but never got them filled because her pain resolved. Over the last 2 days she had a reoccurrence of pain. She woke with the pain yesterday. She complains of pain along the right side of her neck. No headache or visual changes. No chest pain or shortness of breath. No weakness or paresthesias. No treatments prior to arrival today. She does not know what happened to the previously prescribed medications. Review of Systems A 10 point review of systems is negative except as noted above. Medical and Surgical History: Reviewed and noted Social history: Lives at home Tobacco: Denies Physical Exam Vitals & Measurements T: 36.9 ?C(Oral) HR: 79(Peripheral) RR: 16 BP: 127/80 SpO2: 98% HT: 165.10 cm WT: 55 kg BMI: 20.18 Nurses notes and vital signs reviewed and patient is not hypoxic. General: The patient appears well, resting comfortably. Skin: Warm, dry. Head: Atraumatic. Neck: No JVD. Tenderness along the right trapezius musculature. No midline tenderness. No evidence of vascular compromise. No soft tissue swelling, ecchymosis or erythema. No lymphadenopathy. Eye: Normal conjunctiva. Ears, Nose, Mouth, and Throat: Moist mucous membranes. Cardiovascular: Strong distal pulses. Chest wall: Respiratory: Respirations are nonlabored. Back: Normal range of motion. Musculoskeletal: Normal ROM with no gross deformity. Gastrointestinal: Urological: Neurological: Awake and alert. No focal deficits. Follows commands. Psychiatric: Cooperative. Medical Decision Making Exam is consistent with musculoskeletal tenderness. No evidence of neurovascular compromise. Patient is treated with prednisone and Robaxin as she has an allergy to NSAIDs. Given Lidoderm patches as well. Discharged with PCP follow-up. Patient was encouraged to return to the ED if symptoms worsen or change. Assessment/Plan Neck pain (M54.2: Cervicalgia) Orders: lidocaine topical, 1 patch(es), Topical, Daily, 7 EA, Refill(s) 0, apply 12 hours on and 12 hours off daily, [id number], 165.1, cm, 09/08/22 14:14:00 EST, Height/Length Dosing, 55, kg, 09/08/22 14:14:00 EST, Weight Dosing methocarbamol, 1,500 mg = 2 tab(s), Oral, TID, X 3 day(s), # 18 tab(s), Refills(s) 0, Pharmacy: [facility] #[id number], 165.1, cm, 09/08/22 14:14:00 EST, Height/Length Dosing, 55, kg, 09/08/22 14:14:00 EST, Weight Dosing predniSONE, 60 mg = 3 tab(s), Oral, Daily, X 5 day(s), # 15 tab(s), Refills(s) 0, Pharmacy: [facility] #[id number], 165.1, cm, 09/08/22 14:14:00 EST, Height/Length Dosing, 55, kg, 09/08/22 14:14:00 EST, Weight Dosing Disposition Plan Patient Discharge Condition Disposition: Discharged home Condition: Improved and stable Counseled: Patient and/or family were counseled to workup, results, treatment plan and follow-up recommendations Discharge Prescription List Prescriptions Lidoderm 5% Patch, 1 patch(es), Topical, Daily predniSONE 20 mg Tab, 60 mg= 3 tab(s), Oral, Daily Robaxin-750 oral tablet, 1500 mg= 2 tab(s), Oral, TID Follow-up With When Contact Information BROOK DUMONT In 3 days 09/11/2022 EST [address] [facility] [address] [place] [address]- Business (1) Additional Instructions: Patient Education Muscle Strain Attestation ;;'end Patient seen and evaluated by the physician drilling assistant. Attending physician was present in the emergency department and supervised care. This visit was performed by both the physician and an APC. I performed all aspects of the MDM as documented. This report was transcribed using voice recognition software. Every effort was made to ensure accuracy, however, inadvertently computerized ecologist mistakes may be present. Appropriate healthcare PPE was used in evaluating this patient. The patient was placed in a mask. The healthcare provider was wearing mask, gloves, and utilizing proper hand hygiene. All equipment was properly cleansed. Problem List/Past Medical History Ongoing Anemia Dizziness Fatigue Hot flashes Hypoglycemia Smoker Tachycardia Historical Anxiety Drug abuse Drug seeking behavior Procedure/Surgical History None. Medications Inpatient No active inpatient medications Home Lidoderm 5% Patch, 1 patch(es), Topical, Daily Medical Marijuanna methadone Allergies naproxen (Unknown cause) traZODone (Vomiting, Rash) Social History Alcohol - Denies Alcohol Use, 04/02/2022 Substance Abuse Current, Marijuana, Methadone treatment for opiod addiction, Daily, Previous treatme (more content not included)... [facility] Comment on above: Result Comment: Elec tronically Signed By: Raul Beltran PA-C\.br\Date and Time Signed: 09/08/22 15:33 EST\.br\Electronically Co-Signed By: Tito Fortune DO\.br\Date and Time Co-Signed: 09/09/22 07:07 EST Consent for Treatmenton 08-14 Consent for Treatment [id number]#1.00CD:127 [facility] Discharge Instructionson Discharge Instructions [id number]#1.00CD:127 [facility] ED Clinical Summaryon 2022 ED Clinical Summary [address] [address] ED Clinical Summary Person Information Name: CYNDIE BLAIR [place] Age: 32 Years : 1990 Sex: Female Language: Romanian PCP: BROOK DUMONT DO Marital Status: Single Visit Id: Visit Reason: Neck pain; PAIN IN TOP OF NECK Speciality: Acuity: 4 Enc Type: Emergency Med Service: Emergency Arrival: 09/08/2022 14:05:42 Discharge: 09/08/2022 15:24:43 LOS: 000 01:19 Checkin: 09/08/2022 14:05:42 Checkout: 09/08/2022 15:24:43 Dispo Type: Home (Routine DC) EVENTS: Event Name Event Status Request Date/Time Start Date/Time Complete Date/Time Arrive Complete 09/08/2022 14:05:42 09/08/2022 14:05:42 09/08/2022 14:05:42 Document Home Meds Request 09/08/2022 14:05:42 Triage Complete 09/08/2022 14:05:42 09/08/2022 14:14:35 09/08/2022 14:14:35 Bed Assign Complete 09/08/2022 14:10:16 09/08/2022 14:10:16 09/08/2022 14:10:16 Dr Exam Complete 09/08/2022 14:10:16 09/08/2022 14:24:27 09/08/2022 14:24:27 RN Exam Complete 09/08/2022 14:10:16 09/08/2022 15:13:43 09/08/2022 15:13:43 Registration Complete 09/08/2022 14:24:27 09/08/2022 14:55:36 09/08/2022 14:55:36 Dr Exam Complete 09/08/2022 14:26:02 09/08/2022 14:26:02 09/08/2022 14:26:02 Reg Complete Request 09/08/2022 14:55:36 Reg Bed Request Complete 09/08/2022 14:55:36 09/08/2022 14:55:36 09/08/2022 14:55:36 Discharge Complete 09/08/2022 15:22:02 09/08/2022 15:24:53 09/08/2022 15:24:53 Transfer Complete 09/08/2022 15:24:53 09/08/2022 15:24:53 09/08/2022 15:24:53 ADDRESS: [address] [place] [address] [place] [id number] PHYS DOC NOTES: MEDICAL INFORMATION: Prescriptions Given: New Medications [id number], [address] [facility] [place] [id number], [phone] methocarbamol (Robaxin-750 oral tablet) 2 Tablets By Mouth 3 times a day for 3 Days. Refills: 0. predniSONE (predniSONE 20 mg Tab) 3 Tablets By Mouth every day for 5 Days. Refills: 0. Medications to Continue Taking That Have Changed [id number], [address] [place], [place] [id number], [phone] START: lidocaine topical (Lidoderm 5% Patch) 1 Patches Topical every day. apply 12 hours on and 12 hours off daily. Refills: 0. Other Medications START: lidocaine topical (Lidoderm 5% Patch) 1 Patches Topical every day. apply 12 hours on and 12 hours off daily. Refills: 0. Medications to Continue with No Changes Other Medications methadone [facility] Prescription (Medical [facility]) PATIENT EDUCATION INFORMATION: Instructions: Muscle Strain Follow up: With: Address: When: BROOK JULIA [address] [place] [id number] [facility] (1) In 3 days 09/11/2022 DIAGNOSIS: Neck pain [facility] ED Patient Education Noteon 09-08-2022 ED Patient Education Note Orthopedics Muscle Strain A muscle strain is an injury that occurs when a muscle is stretched beyond its normal length. Usually, a small number of muscle fibers are torn when this happens. There are three types of muscle strains. First-degree strains have the least amount of muscle fiber tearing and the least amount of pain. Second-degree and third-degree strains have more tearing and pain. Usually, recovery from muscle strain takes 1?2 weeks. Complete healing normally takes 5?6 weeks. What are the causes? This condition is caused when a sudden, violent force is placed on a muscle and stretches it too far. This may occur with a fall, lifting, or sports. What increases the risk? This condition is more likely to develop in athletes and people who are physically active. What are the signs or symptoms? Symptoms of this condition include: ? Pain. ? Bruising. ? Swelling. ? Trouble using the muscle. How is this diagnosed? This condition is diagnosed based on a physical exam and your medical history. Tests may also be done, including an X-ray, ultrasound, or MRI. How is this treated? This condition is initially treated with RODRIGUES therapy. This therapy involves: ? Protecting the muscle from being injured again. ? Resting the injured muscle. ? Icing the injured muscle. ? Applying pressure (compression) to the injured muscle. This may be done with a splint or elastic bandage. ? Raising (elevating) the injured muscle. Your health care provider may also recommend medicine for pain. Follow these instructions at home: If you have a splint: ? Wear the splint as told by your health care provider. Remove it only as told by your health care provider. ? Loosen the splint if your fingers or toes tingle, become numb, or turn cold and blue. ? Keep the splint clean. ? If the splint is not waterproof: ? Do not let it get wet. ? Cover it with a watertight covering when you take a bath or a shower. Managing pain, stiffness, and swelling ? If directed, put ice on the injured area. ? If you have a removable splint, remove it as told by your health care provider. ? Put ice in a plastic bag. ? Place a towel between your skin and the bag. ? Leave the ice on for 20 minutes, 2?3 times a day. ? Move your fingers or toes often to avoid stiffness and to lessen swelling. ? Raise (elevate) the injured area above the level of your heart while you are sitting or lying down. ? Wear an elastic bandage as told by your health care provider. Make sure that it is not too tight. General instructions ? Take rjyj-abr-klwovlh and prescription medicines only as told by your health care provider. ? Restrict your activity and rest the injured muscle as told by your health care provider. Gentle movements may be allowed. ? If physical therapy was prescribed, do exercises as told by your health care provider. ? Do not put pressure on any part of the splint until it is fully hardened. This may take several hours. ? Do not use any products that contain nicotine or tobacco, such as cigarettes and e-cigarettes. These can delay bone healing. If you need help quitting, ask your health care provider. ? Ask your health care provider when it is safe to drive if you have a splint. ? Keep all follow-up visits as told by your health care provider. This is important. How is this prevented? ? Warm up before exercising. This helps to prevent future muscle strains. Contact a health care provider if: ? You have more pain or swelling in the injured area. Get help right away if: ? You have numbness or tingling or lose a lot of strength in the injured area. Summary ? A muscle strain is an injury that occurs when a muscle is stretched beyond its normal length. ? This condition is caused when a sudden, violent force is placed on a muscle and stretches it too far. ? This condition is initially treated with RODRIGUES therapy, which involves protecting, resting, icing, compressing, and elevating. ? Gentle movements may be allowed. If physical therapy was prescribed, do exercises as told by your health care provider. This information is not intended to replace advice given to you by your health care provider. Make sure you discuss any questions you have with your health care provider. Document Released: 06/29/2006 Document Revised: 06/11/2018 Document Reviewed: 08/05/2017 [employer] Patient Education ? 2019 Serious Parody. [facility] ED Patient Summaryon 023 ED Patient Summary [place] [address] Patient Discharge Instructions Person Information Name: CYNDIE BLAIR Age: 32 Years Arrival Date: 09/08/2022 14:05:42 Discharge Diagnosis: Neck pain Primary Care Physician: BROOK DUMONT DO Provider Information Primary Provider: Tito Fortune DO Advanced Brusher Hand:Raul Beltran PA-C The exam and treatment you received in the Emergency Department were for an urgent problem and are not intended as complete care. It is important that you follow up with a doctor, nurse practitioner, or physician?s drilling assistant for ongoing care. If your symptoms become worse or you do not improve as expected and you are unable to reach your usual health care provider, you should return to the Emergency Department. We are available 24 hours a day. CYNDIE BLAIR has been given the following list of patient education materials, prescriptions and follow-up instructions: Follow-up Instructions: With: Address: When: BROOK [address] [facility] [address] [place] [address] Business (1) In 3 days 09/11/2022 In the event that this physician does not participate in your insurance network, please consult with your insurance company to find a nearby participating provider. Patient Education Materials: Muscle Strain A MESSAGE TO ALL PATIENTS REGARDING OPIOIDS PRESCRIPTION OPIOIDS: WHAT YOU NEED TO KNOW Prescription opioids can be used to help relieve bdiscchu-mq-dkfxtb pain and are often prescribed following a surgery or injury, or for certain health conditions. These medications can be an important part of the treatment but also come with serious risks. It is important to work with your healthcare provider to make sure you are getting the safest, most effective care. WHAT ARE THE RISKS AND SIDE EFFECTS OF OPIOID USE? Prescription opioids carry serious risks of addiction and overdose, especially with prolonged use. An opioid overdose, often marked by slowed breathing, can cause sudden . The use of prescription opioids can have a number of side effects as well, even when taken as directed: ? Tolerance?meaning you might need to take more of the medication for the same pain relief ? Physical dependence?meaning you have symptoms of withdrawal when a medication is stopped ? Increased sensitivity to pain ? Constipation ? Nausea, vomiting, and dry mouth ? Sleepiness and dizziness ? Confusion ? Depression ? Low levels of testosterone that can result in lower sex drive, energy, and strength ? Itching and sweating RISKS ARE GREATER WITH: ? History of drug misuse, substance use disorder, or overdose ? Mental health conditions (such as depression or anxiety) ? Sleep apnea ? Older age (65 years and older) ? Avoid alcohol while taking prescription opioids. Also, unless specifically advised by your health care provider, medications to avoid include: ? Benzodiazepines (such as Xanax or Valium) ? Muscle relaxants (such as Soma or Flexeril) ? Hypnotics (such as Ambien or Lunesta) ? Other prescription opioids KNOW YOUR OPTIONS Talk to your health care provider about ways to manage your pain that don?t involve prescription opioids. Some of these options may actually work better and have fewer risks and side effects. Options may include: ? Pain relievers such as acetaminophen, ibuprofen, and naproxen ? Some medication that are also used for depression or seizures ? Physical therapy and exercise ? Cognitive behavioral therapy, a psychological, goal-directed approach, in which patients learn how to modify physical, behavioral, and emotional triggers of pain and stress. IF YOU ARE PRESCRIBED OPIOIDS FOR PAIN: ? Never take opioids in greater amounts or more often than prescribed. ? Follow up with your primary health care provider. o Work together to create a plan on how to manage your pain. o Talk about ways to help manage your pain that don?t involve prescription opioids. o Talk about any and all concerns and side effects. ? Help prevent misuse and abuse o Never sell or share prescription opioids. o Never use another person?s prescription opioids. ? Store prescription opioids in a secure place and out of reach of others (this may include visitors, children, friends, and family). ? Safely dispose of unused prescription opioids: Find your community drug take-back program or your pharmacy mail-back program, or flush them down the toilet, following guidance from the Food and Drug Administration (www.fda.gov/Drugs/ ResourcesForYou). ? Visit www.cdc.gov/drugove rdose to learn about the risks of opioids abuse and overdose. ? If you believe you may be struggling with addiction, tell your health caretaker grounds and ask for guidance or call [facility] National Helpline at 6-624-455-WIBL. s Source: US Department of Health a (more content not included)... [facility] Prescriptions/Work Noteson 0 09-08-2022 Prescriptions/Work Notes [id number]#1.00CD:127 [facility] Coding Summary.on 08-08-2022 Coding Summary. CD:[id number] NUf3sJk+PGhlYWQ+PE1 UPQWzB20rbMOhcG7VC9 oMQH8BEECNVOTOKU2NU X7qgML0JLxcJ1WgalRx SiknkMSsVH36JJx5FTV 6tHpeKIurcV7msVQaP9 d8AzSaNS70lA06KCrlB MAqNpT7AuWnpmfbhQCy E8xzKqBywOFoHmy+PHR hYmxlIHdpZHRoPScxMD UuOwNdlNopBB0fQi8eW GVyLWNvbGxhcHNlOiBj s5irERRyYYagYC0mdEx uB3PfuCB3JQKqy7q5Ab 48dHI+AAFeCBD0uUmhK Uzxe172KoQec1svRQC1 iNFoPJuhZUS2D47qc8J 6GZYqMFZzSNW2sZQ0oP 6wyQkxyhsfV3RhsNOcU jS4OVZ4rYUyqP9dnBlu dkdtuE1nDyj+Q61UGR5 HLONCHK6OHuh0O9HoLl wvdHI+NZ52HICoFV17o UWnjMKkt1mkbNg4OqRp XQLbSUE8pSkqHXsfh7O jYHSsI81rkJMro5S2UF FndOgheXFhZrBcpXN0g V2fIJkyzkkdz9xidapm Rmrdy7apbj89qV27O53 rBZzqMGWyRJG7OLUqTK UkpUifdl1qgA6aHo2+I Fwgr8mlu0aeeCu8OjOe IAZltxWxwHrqZKB2a8N xAy56Q2HzeJood1WxAl g3cq89fXThz7Q1vQB2J QfrMIYsrU6sYEsjTcC9 QKRqTzUlrN54hQToGMj hIq0ofCyhwLxcQH9hRN TwgcppBZNicK8bSQVfn JTikIjoYU2lIYOznmej e319DfHyFRF8RBWcxUI fF4DmuC6xZxEyPYCrFP MnT4YuiGJpXHrbI591A AqhNvF8NRZufyOmE0Gg LXXekEmaFwM8a2C5Eo3 Nx5ZanyacFQF4DYbnXN BbJxS7HjOlMtH5J3QmV vk2BTXytQcgEJ6pR8An MFAvladmhhxlyGV2ZHI yHHPryT64wNWySLodJh 6yd2Y6e777JHFrVYXfa U58Gz7utEdvGJPhiKEW mF2pghxsa5gphvwxDtW fPZPbJHb2OEb0MRKcrC ijLfNtKCR9CmE2NIP2v HFenC8atTurenacnK5y Oyc+R60goP7nYWN6AFZ 9ufomXXWgvjPkRE11KP 84C7MvKcvqlWWkpDM+P XXdncRxqLyfHR6bSiLv o0lpr5KdTUxuV9BvYZB oFDyvTtm1XSAaUFB8gN Z8kN9nPIGbVFdvu4L3t MU7E4LxgxYmpm0se0vs MKUjYUfdN01kwRDxh9Y 1EEWdbDJ9VEUoaRgaCt TdwA71Odg+PGNvbGdyb 4IcTpdsb3edw4jufUp5 IjMwJSIgdmFsaWduPSJ 5u7XxDt33U71dUYbaKE RoPSIxNSUiIHZhbGlnb z4oyN4sUo2+PGNvbCB3 pSH3pB4gENMxQmA6AZe pY108QjGxiIRjEugno1 phj7zdqAs8SmFoNYQya yBpwFqbGDG0b3UaBr30 T12gBXxvSUFlEDQtGKT kNIGmqFrmau3ybQ0jSh 8+JY9hx2qfdx37mP75v HI+TPGxXAU9qOneWFgy FGPbtQ2qSHdpGjW6XBR qHxZmoL61wVTjFKelIk 5pjUlmeRjoLM2dIKZft jyvu604VeIgi1fiOGWa cTXdZUtoAFH8V05dw1B 3ZXZyTRQxEVU1sYR3uX 1hbGlnbjogbGVmdDsgd eWetLxkQOodUQyhT945 IHRvcDsnPlBhdGllbnQ sYqZuTQz8L4UqGnn6PT MyeHnjDW4xuKOrZBcuU c2vyXjrwDfmEA0pKKLq wbjnd616GnLbl1zdSVA hpQFhMFosWGP9H71fo1 L8ASXhSJYqGKM2hDX8y F2geHmzuvyulJKstHgc zxWymMrzOSmkRUysC20 6IHRvcDsnPkJpcnRoIE GruNO8AY46ZQ72oUMvi 9L7hWX3W0XzUZApyufe ulxkgKF9ELLkTRYgmG5 4Nn3fzPonQo1wMLUhBR W4MVOrbTEjD6BvwS4pB fUxSCQqLZAnQ5TmxOSm VWabC976FQiqOrB7MQV iejYsF7XxFRHnpRaeAk H9y2N1If8CF6C9IK23L K75aNUaw3P2sNJ8S2Ms TMBjiuigmsrtcPN9HCI hGPYhhX20Kd7rhNntGl 7yRMJuVVU3JVOntECjS 2TvsA5cBxCdTAHtOGEo U3UbsBIiKBheZ963DXw dNbB1JUJbqvDhO2XcOM QbrTatFeZ8f0O2Rj0DG Rx8TR10BF42pAPyd5I4 fYV3W0YlGACllrkjnmo piZX0BTKfCUIjdZ28Su 8bgOwjMd6nLNPhMYN9J ONzuHDxU3LlyX8sBeZo KHIuGGQyI5PvcDUmOOq gS287KQoiVoY1TNWshq WbB7HeAYJgdHgdYcU6s 0S1Or2VVSNrPU68HXO5 nNT3YO59IV61N7IhQqp vdGFibGU+PHRhYmxlIH dpZHRoPScxMDAlJyBzd WifUC5gZx3qWKAiITQw zQujwRXpBzGjt8bjFQR xZVhmYC5hbHzfZ6OjhV M3KLGyl6g7Ei66J73rH 3JvdXA+PHXkhJC2pCJ2 iZ6rNdZoKyG7OQrkD24 6QhGbqUPnMpawo3dfr6 irkLl7EeA1IJAwwdQbm JemLLT6v7KuNb23Z34f IHdpZHRoPSIxNSUiIHZ oaVgbqo1aeQ9rRv7+PG JvrNW2eOT1zJ1xKcQzB dR7NQuuF827YmSchRWp Vysmd9pbd4jsdZt0GkX eYFAxvsUmyGvtWQO5a7 VnQm34T6VjiEwza9IpN ey6ds91lSNxd5Y9eCT8 S4YgIUVaxadrfFMxaHy fKO2oWDNsjbmiTMPmbI 7pJVAzE2m5CvXhBuV1Z UwzD6JsrwO3XMUesPFy EMahQST5E79ax7Z4HBI vVYGrCEU5bUO8cD4xhD lnbjogbGVmdDsgdmVyd YjpLKkeTVzyD944RHId nJhvJKIepK2lQFDeoVW nsAeyAH5yFAPwxdlpWa xPTkcsIEVMSVpBQkVUS AVEQQ84ON29uWGmn1F1 kJA3B5OoLOSnslozuqt cqFO1TMPtNRSunZ66hW OaFAejZv2lg3K6z920D RGwFCFueT17Op5jcHnv XFAsyVXXzP1xdgwqj5u zolgnUzYlJABbDOq1UE f5LVPisGphDxLcWFX3R fD4ABV7wOYtxX4tzEqd czcqiA1aKpc+MTIvMTE rVHi1KWdqeOD+PHRkIH J7rCxzVKmfYATmdI2eF TUsR6b1WwTxKjT1LLkl Y8GbAJQwjzpeHg15dN2 uArHeOrM0MUxyM9Tmfl B8QRPkqKLlJHgpDNI8C 16xp1O6OMWqLWIcTFC3 eNB4kE1spSwowgjijDQ mdDsgdmVydGljYWwtYW rxA907BAPcmUwuVwXnG HvgMRWoAQ35SA83gFWu g2E7bRO7J4XjLJCtoju vrpnqiRB6EDEoAAStwJ 74rLLsMPkuCg5ki2Q0k 331TVVcEEBklR95Vn9z lGetIGQddQJPqJ6xxus mc5kjardaOqUnZIVrKW x9IXj5YMKwlKxqFcVzB TU5HrT3MPA0kKYtkI4r sNngpxzuiK8cRzy+RmV cQAhdSI66PA60tBNwh8 A2xYA0R9RsPYEmsmaij rciiTR2PMTxGDIxgY75 bUMzCUteAd4ig4I2d06 8MAKyTCLmiR97Yx3mpD ozRCOnpTWVeQ6vmkzkb 7zkigmiIbMxHWMgJFq9 YKy1EZTbqBxmMtXvGZA 5JlS3ZOZ7hBVblY7sfZ vjkrwgwC7yVpv+RW1lc bobekQ3NR36UF68F0Bh PjwvdGFibGU+PHRhYmx lIHdpZHRoPScxMDAlJy HjjIsnZU6aUo9lARXtE TXgdQzmlPMhGyAdw8ew OVDdCIufHQ7pxCprH9F trVF4GGRzl3x2Yn61M9 6rD0ElzQP+SVSalRA8j YM8vS8fGtZdEuD2GBdo K622MoVaqMJvVofek9r ky0zzeYz2XpFzIMNxwe WflWizEYI1a4ZhTr88N 29sIHdpZHRoPSIyMCUi GAEwmYyopn9rqQ6zWw0 +CGUftJD5hTD2zZ5rDo XcXmQ6JMhpD773ApHfo DDyKiegQ14vS3KdgOW+ FJJiNxw5AWOpzJsrHL6 udZXuBXbzUe8jMVC8Pv WbJhVkJIglC2DtUROqf valgxdgtBY8LUQyFYUh dO80Ef1lfDwbZz3rDME qSEJ7TIGleKBsP7HgaJ 1qWhOsTMAeLXHtW9Rke TPhSPmfV732XYdsYfJ5 WSAmhfUgW3SrOFTglPm vGqJ4u3R5Kd1MoDjmdI BoJR4eMvJtXDa4G1PoM sk1PSQllTtoIA9miCWt FYtkEu7hhYxblZenYE8 sXBZmuqict017BwDij4 xuKBXznVKqPNbsWUY5Q 41vf3A0ZHSsAJQlRRD3 oSY4aC1lyVkzkbdnpKY mdDsgdmVydGljYWwtYW bpK345VVJweAzpNxOAY bc6O6IrOii6SOHqsMyd JK7mdJNhNSbzRs5dlWi hnOmaFT8sXHOlpsjej6 51CsJye9bxMOXppEAhU YpuBCX3K07ua5T6NCRg ZZSfSAL5wDI8mI4vmMt nbjogbGVmdDsgdmVydG geIZwzHRquQ597UYJlr AfeIf1YFks1W8SbRbd2 SFNfiTliXB2blDClSUq hCp1azMrfqPlkRE8oTJ Fokxnxx158XmLnv1uwL UCgfPJoQWamSSS7G40j t1Q0GMTaZNPiMKM9zYX 9dJ7rbKbqngewnJEatO sgdmVydGljYWwtYWxpZ 246IHRvcDsnPlBheWVy OjwvdGQ+QG02nu58R2Y wGdtbNkj7SVDaPZA2cL P1cO3uYRAkYLucd9K6d QF3Z3KxndHqqu5wm4nh YXBz (more content not included)... [facility] Consent for Treatmenton 07-14 Consent for Treatment [id number] 51#[id number]:127 [facility] Discharge Instructionson Discharge Instructions [id number] 669#1.00CD:127 [facility] ED Clinical Summaryon 2022 ED Clinical Summary [address] [address] ED Clinical Summary Person Information [facility]: [facility] Age: 32 Years : 1990 Sex: Female Language: Romanian PCP: Hernandez LEON DO Marital Status: Single Visit Id: Visit Reason: Neck pain; Back pain; BACK PAIN Speciality: Acuity: 4 Enc Type: Emergency Med Service: Emergency Arrival: 08/07/2022 03:19:49 Discharge: 08/07/2022 04:15:42 LOS: 000 00:56 Checkin: 08/07/2022 03:19:49 Checkout: 08/07/2022 04:15:42 Dispo Type: Home (Routine DC) EVENTS: Event Name Event Status Request Date/Time Start Date/Time Complete Date/Time Arrive Complete 08/07/2022 03:19:49 08/07/2022 03:19:49 08/07/2022 03:19:49 Document Home Meds Request 08/07/2022 03:19:49 Triage Complete 08/07/2022 03:19:49 08/07/2022 03:28:15 08/07/2022 03:28:15 No Visitors Request 08/07/2022 03:22:03 Dr Exam Complete 08/07/2022 03:23:08 08/07/2022 03:23:08 08/07/2022 03:23:08 Registration Complete 08/07/2022 03:23:08 08/07/2022 03:23:11 08/07/2022 03:23:11 Reg Complete Request 08/07/2022 03:23:11 Reg Bed Request Complete 08/07/2022 03:23:11 08/07/2022 03:23:11 08/07/2022 03:23:11 RN Exam Complete 08/07/2022 03:29:53 08/07/2022 03:29:53 08/07/2022 03:29:53 Bed Assign Complete 08/07/2022 03:32:14 08/07/2022 03:32:14 08/07/2022 03:32:14 X-Ray Complete 08/07/2022 03:36:48 08/07/2022 03:38:14 08/07/2022 03:54:42 Meds Admin Complete 08/07/2022 03:36:48 08/07/2022 03:56:08 Wet Read Request 08/07/2022 03:54:42 Meds Admin Complete 08/07/2022 04:04:17 08/07/2022 04:13:24 Discharge Complete 08/07/2022 04:06:00 08/07/2022 04:15:47 08/07/2022 04:15:47 Transfer Complete 08/07/2022 04:15:47 08/07/2022 04:15:47 08/07/2022 04:15:47 ADDRESS: [address] [place] [address] [id number] PHYS DOC NOTES: MEDICAL INFORMATION: Prescriptions Given: New Medications [id number], [address], [place] [id number], [phone] lidocaine topical (Lidoderm 5% Patch) 1 Patches Topical every day. apply 12 hours on and 12 hours off daily. Refills: 0. methocarbamol (Robaxin 500 mg Tab) 1 Tablets By Mouth 3 times a day for 3 Days. Refills: 0. predniSONE (predniSONE 50 mg Tab) 1 Tablets By Mouth every day for 5 Days. Refills: 0. Medications to Continue with No Changes Other Medications methadone [facility] Prescription ([facility]) PATIENT EDUCATION INFORMATION: Instructions: Thoracic Strain, [id number]; Back Exercises, [id number]; Acute Back Pain, Adult Follow up: With: Address: When: Hernandez LEON [address] [place] [address] [phone] Business (1) In 3 days 08/10/2022 Comments: Take the prednisone once daily until you have completed the course you can use the Robaxin, Lidoderm patches as needed for pain. Please follow-up with your primary care doctor in the next 2 to 3 days. Please return to ED for any new or worsening symptoms. DIAGNOSIS: Back pain, thoracic [facility] ED Note-Physicianon 08-07-19 ED Note-Physician Basic Information Time Seen: Bakari Jarquin DO 08/07/2022 03:23 Chief Complaint Patient states has pinched nerve in back. States last few months has been painful and last week started hurting consistently. Pt numbness/tingling. States chronic pain in back from pinched nerve. History of Present Illness Patient is a 32-year-old female with past medical history of anxiety presenting to the ED for evaluation of back pain. Patient states she was told approximately 10 years ago that she had a pinched nerve in her back. 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 Patient denies any radicular symptoms, fevers, chills, injuries or trauma. Does use medical marijuana in addition to methadone. Review of Systems General: Denied fever, chills, weight loss HEENT: Denied Congestion, rhinorrhea, sore throat Cardiac: Denied Chest pain, palpitations, dizziness/lighthead edness Respiratory: Denied Dyspnea, cough Abdominal: Denied abdominal pain, nausea, vomiting, diarrhea, constipation : Denied dysuria, hematuria Extremities: + Upper back pain, right shoulder pain Neuro: Denied Focal neurologic deficits, vision changes, difficulty with speech Integumentary: Denied rashes or lesions Physical Exam Vitals & Measurements T: 36.5 ?C(Oral) HR: 68(Peripheral) RR: 18 BP: 120/80 SpO2: 100% HT: 164 cm WT: 53 kg BMI: 19.71 General: Well developed, non toxic appearing, no acute distress HEENT: Head atraumatic, Mucosa moist, hearing grossly normal Neck: No JVD, tracheal deviation Cardiac: Regular rate, rhythm, no murmurs, or gallops, 2+ radial pulses Respiratory: Lungs clear to auscultation B/L, normal respiratory effort Abdomen: Soft non tender, no rebound or guarding, no peritoneal signs Back: Tenderness to palpation of the right paraspinal musculature in the T1-T3 region, no midline spinal tenderness Extremities: No edema noted in the LE B/L, no tenderness to palpation Neurologic: Alert and oriented, speech clear Skin: No rashes or lesions Psych: Appropriate mood and behavior Medical Decision Making MEDICAL DECISION MAKING Number and Complexity of Problems Differential Diagnosis: [] [facility] Data External documents reviewed: [] My EKG interpretation: [] My CT interpretation: [] My X-ray interpretation: [] My Ultrasound interpretation: [] Decision rules/scores evaluated: [] Discussed with: [] Treatment and Disposition ED Course: Patient is a 32-year-old female presenting to the ED for evaluation of right shoulder pain. Patient is nontoxic-appearing on arrival, no acute distress. Noticed to have paraspinal muscular hypertonicity and tenderness on examination. X-ray of the thoracic spine is obtained patient given prednisone in addition to lidocaine patch in the ED. patient's x-ray imaging does not reveal any acute process. Patient is given a Robaxin to take when she gets home. She is given a prescription for prednisone, Robaxin, Lidoderm patches. Patient she is advised to follow-up with her primary care doctor in the next 2 to 3 days. She is to return to the ED for any new or worsening symptoms. Shared decision making: [] Code status: [] Assessment/Plan Back pain, thoracic (M54.6: Pain in thoracic spine) Orders: lidocaine topical, 1 patch(es), Patch, TransDermal, Once, Stop date 08/07/22 3:36:00 EST, STAT, Start date 08/07/22 3:36:00 EST lidocaine topical, 1 patch(es), Topical, Daily, 7 EA, Refill(s) 0, apply 12 hours on and 12 hours off daily, [facility] #[id number], 164, cm, 08/07/22 3:28:00 EST, Height/Length Dosing, 53, kg, 08/07/22 3:28:00 EST, Weight Dosing methocarbamol, 500 mg = 1 tab(s), Oral, TID, X 3 day(s), # 9 tab(s), Refills(s) 0, Pharmacy: [facility] #[id number], 164, cm, 08/07/22 3:28:00 EST, Height/Length Dosing, 53, kg, 08/07/22 3:28:00 EST, Weight Dosing methocarbamol, 500 mg = 1 tab(s), Tab, Oral, Once, Stop date 08/07/22 4:04:00 EST, STAT, Start date 08/07/22 4:04:00 EST, 08/07/22 4:04:00 EST predniSONE, 50 mg = 1 tab(s), Oral, Daily, X 5 day(s), # 5 tab(s), Refills(s) 0, Pharmacy: [facility] #[id number], 164, cm, 08/07/22 3:28:00 EST, Height/Length Dosing, 53, kg, 08/07/22 3:28:00 EST, Weight Dosing predniSONE, 60 mg = 3 tab(s), Tab, Oral, Once, Stop date 08/07/22 3:36:00 EST, STAT, Start date 08/07/22 3:36:00 EST, 08/07/22 3:36:00 EST XR Spine Thoracic 3 Views Medications Administered Given Lidoderm 5% Patch, 1 patch(es), TransDermal predniSONE 20 mg Tab, 60 mg, Oral Disposition Plan Discharge Prescription List Prescriptions Lidoderm 5% Patch, 1 patch(es), Topical, Daily predniSONE 50 mg Tab, 50 mg= 1 tab(s), Oral, Daily Robaxin 500 mg Tab, 500 mg= 1 tab(s), Oral, TID Follow-up With When Contact Information Hernandez LEON In 3 days 08/10/2022 EST [address] [place] [phone] Business (1) Additional Instructions: Take the prednisone once tomasz (more content not included)... [facility] Comment on above: Result Comment: Elec tronically Signed By: Bakari Jarquin DO\.br\Date and Time Signed: 08/07/22 04:07 EST ED Patient Education Noteon 08-07-2022 ED Patient Education Note Orthopedics Thoracic Strain A thoracic strain is an injury to the muscles or tendons that attach to the upper back. Tendons are tissues that connect muscle to bone. This injury is sometimes called a mid-back strain. A strain can be mild or very bad. A mild strain may take only 1?2 weeks to heal. A very bad strain involves torn muscles or tendons, so it may take 6?8 weeks to heal. What are the causes? This condition may be caused by: ? A fall or a hit to the body. ? Twisting or stretching the back too far. This may happen when doing activities that require a lot of energy, such as lifting heavy objects. In some cases, the cause may not be known. What increases the risk? This injury is more common in: ? Athletes. ? People who are very overweight (obese). What are the signs or symptoms? ? Pain in the middle back, especially with movement. This is the main symptom. ? Stiffness or limited range of motion. ? Sudden muscle tightening (spasms). How is this treated? This condition may be treated with: ? Resting the injured area. ? Putting heat and cold on the injured area. ? Medicines for pain and inflammation, such as NSAIDs. ? Prescription medicine for pain or to relax the muscles. These may be used for a short time if needed. ? Physical therapy. This will involve doing exercises to stretch and strengthen the middle back. Follow these instructions at home: Managing pain, stiffness, and swelling ? If told, put ice on the injured area. ? Put ice in a plastic bag. ? Place a towel between your skin and the bag. ? Leave the ice on for 20 minutes, 2?3 times a day. ? If told, put heat on the affected area. Do this as often as told by your doctor. Use the heat source that your doctor recommends, such as a moist heat pack or a heating pad. ? Place a towel between your skin and the heat source. ? Leave the heat on for 20?30 minutes. ? Remove the heat if your skin turns bright red. This is very important if you are unable to feel pain, heat, or cold. You may have a greater risk of getting burned. Activity ? Rest and return to your normal activities as told by your doctor. Ask your doctor what activities are safe for you. ? Do exercises as told by your doctor. Medicines ? Take sied-slp-rdedjqe and prescription medicines only as told by your doctor. ? Ask your doctor if the medicine prescribed to you: ? Requires you to avoid driving or using heavy machinery. ? Can cause trouble pooping (constipation). You may need to take steps to prevent or treat trouble pooping: ? Drink enough fluid to keep your pee (urine) pale yellow. ? Take jzch-xkm-joaaozn or prescription medicines. ? Eat foods that are high in fiber. These include beans, whole grains, and fresh fruits and vegetables. ? Limit foods that are high in fat and processed sugars. These include fried or sweet foods. Injury prevention To prevent a future mid-back injury: ? Always warm up before physical activity or sports. ? Cool down and stretch after being active. ? Use correct form when playing sports and lifting heavy objects. Bend your knees before you lift heavy objects. ? Use good posture when sitting and standing. ? Stay physically fit and maintain a healthy weight. ? Do at least 150 minutes of moderate-intensity exercise each week, such as brisk walking or water aerobics. ? Do strength exercises at least 2 times each week. General instructions ? Do not use any products that contain nicotine or tobacco. These products include cigarettes, e-cigarettes, and chewing tobacco. If you need help quitting, ask your doctor. ? Keep all follow-up visits as told by your doctor. This is important. Contact a doctor if: ? Your pain is not helped by medicine. ? Your pain or stiffness is getting worse. ? You have pain or stiffness in your neck or lower back. Get help right away if you: ? Have shortness of breath. ? Have chest pain. ? Have weakness or loss of feeling (numbness) in your legs or arms. ? Cannot control when you pee (urinate). Summary ? A thoracic strain is an injury to the muscles or tendons that attach to the upper back. ? If told, put ice or heat on the affected area. ? Rest and return to your normal activities as told by your doctor. ? Keep all follow-up visits as told by your doctor. This information is not intended to replace advice given to you by your health care provider. Make sure you discuss any questions you have with your health care provider. Document Released: 12/15/2008 Document Revised: 05/17/2019 Document Reviewed: 05/17/2019 [employer] Patient Education ? 2020 [employer] Back Exercises These exercises help to make your trunk and back strong. They also help to keep the lower back flexible. Doing these exercises can help to prevent back pain or lessen existing pain. ? If you have back pain, try to (more content not included)... [facility] ED Patient Summaryon 023 ED Patient Summary [address] [address] Patient Discharge Instructions Person Information Name: CYNDIE BLAIR Age: 32 Years Arrival Date: 08/07/2022 03:19:49 Discharge Diagnosis: Back pain, thoracic Primary Care Physician: Hernandez LEON DO Provider Information Primary Provider: Bakari Jarquin DO Advanced Brusher Hand:None The exam and treatment you received in the Emergency Department were for an urgent problem and are not intended as complete care. It is important that you follow up with a doctor, nurse practitioner, or physician?s drilling assistant for ongoing care. If your symptoms become worse or you do not improve as expected and you are unable to reach your usual health care provider, you should return to the Emergency Department. We are available 24 hours a day. CYNDIE BLAIR has been given the following list of patient education materials, prescriptions and follow-up instructions: Follow-up Instructions: With: Address: When: Hernandez LEON [address] [place] [phone] Business (1) In 3 days 08/10/2022 Comments: Take the prednisone once daily until you have completed the course you can use the Robaxin, Lidoderm patches as needed for pain. Please follow-up with your primary care doctor in the next 2 to 3 days. Please return to ED for any new or worsening symptoms. In the event that this physician does not participate in your insurance network, please consult with your insurance company to find a nearby participating provider. Patient Education Materials: Thoracic Strain, Kwll-gs-Lanb; Back Exercises, Dfca-qk-Ylun; Acute Back Pain, Adult A MESSAGE TO ALL PATIENTS REGARDING OPIOIDS PRESCRIPTION OPIOIDS: WHAT YOU NEED TO KNOW Prescription opioids can be used to help relieve ndpcvrsd-wc-dmgjiv pain and are often prescribed following a surgery or injury, or for certain health conditions. These medications can be an important part of the treatment but also come with serious risks. It is important to work with your healthcare provider to make sure you are getting the safest, most effective care. WHAT ARE THE RISKS AND SIDE EFFECTS OF OPIOID USE? Prescription opioids carry serious risks of addiction and overdose, especially with prolonged use. An opioid overdose, often marked by slowed breathing, can cause sudden . The use of prescription opioids can have a number of side effects as well, even when taken as directed: ? Tolerance?meaning you might need to take more of the medication for the same pain relief ? Physical dependence?meaning you have symptoms of withdrawal when a medication is stopped ? Increased sensitivity to pain ? Constipation ? Nausea, vomiting, and dry mouth ? Sleepiness and dizziness ? Confusion ? Depression ? Low levels of testosterone that can result in lower sex drive, energy, and strength ? Itching and sweating RISKS ARE GREATER WITH: ? History of drug misuse, substance use disorder, or overdose ? Mental health conditions (such as depression or anxiety) ? Sleep apnea ? Older age (65 years and older) ? Avoid alcohol while taking prescription opioids. Also, unless specifically advised by your health care provider, medications to avoid include: ? Benzodiazepines (such as Xanax or Valium) ? Muscle relaxants (such as Soma or Flexeril) ? Hypnotics (such as Ambien or Lunesta) ? Other prescription opioids KNOW YOUR OPTIONS Talk to your health care provider about ways to manage your pain that don?t involve prescription opioids. Some of these options may actually work better and have fewer risks and side effects. Options may include: ? Pain relievers such as acetaminophen, ibuprofen, and naproxen ? Some medication that are also used for depression or seizures ? Physical therapy and exercise ? Cognitive behavioral therapy, a psychological, goal-directed approach, in which patients learn how to modify physical, behavioral, and emotional triggers of pain and stress. IF YOU ARE PRESCRIBED OPIOIDS FOR PAIN: ? Never take opioids in greater amounts or more often than prescribed. ? Follow up with your primary health care provider. o Work together to create a plan on how to manage your pain. o Talk about ways to help manage your pain that don?t involve prescription opioids. o Talk about any and all concerns and side effects. ? Help prevent misuse and abuse o Never sell or share prescription opioids. o Never use another person?s prescription opioids. ? Store prescription opioids in a secure place and out of reach of others (this may include visitors, children, friends, and family). ? Safely dispose of unused prescription opioids: Find your community drug take-back program or your pharmacy mail-back program, or flush them down the toilet, following guidance from the Food and Drug Administr (more content not included)... [facility] Prescriptions/Work Noteson 0 08-07-2022 Prescriptions/Work Notes [id number] [facility] XR Spine Thoracic 3 Viewson 08-07-2022 XR Spine Thoracic 3 Views Exam Date/Time: 08/07/2022 03:54 EST Reason for Exam: Pain, Non Traumatic Report IMPRESSION: NEGATIVE THORACIC SPINE CLINICAL INFORMATION: Pain, Non Traumatic COMPARISON: NONE. FINDINGS: 3 views of the thoracic spine were obtained. No fracture, dislocation, bone lesion. FINAL REPORT Dictated: 08/07/2022 8:05 am Morales Gillis MD Signed (Electronic Signature): 08/07/2022 8:05 am Signed by: Morales Gillis MD Transcribed by: ANNETTE Technologist: STEFAN [facility] Family Medicine Office/Clini c Noteon 04-07-2022 Family Medicine Office/Clinic Note HPI Staff Cyndie is a 31 year old female who presents as a new patient with C/O episodes of sweating, brain fog, fatigue/low energy, racing heartbeat, SOB, and nausea/vomiting. Symptoms resolve within 30 minutes to an hour. This has been a concern for over a year. Episodes first started while she was with her daughter, who just recently turned [age] year old. Episodes have started to become more frequent, currently having them about once daily, every morning. States she has lost a lot of weight over the past several months due to this concern. She does have Zofran for nausea, which she takes as needed. She has been to [facility] several times for evaluation, most recently Thursday night, 03/31/22. She reports that ECG resulted WNL. Labs revealed that her blood sugar and iron were borderline low. She does have a maternal FHx of hypoglycemia. History of Present Illness Cyndie Blair is a 31-year-old female who presents today to establish care and address multiple concerns. For the last year, the patient has been experiencing intermittent episodes of cold sweats. She describes the episodes as a wave of heat that comes over her body. She will start pouring sweat, get nausea, and usually end up vomiting. Recently, she has been experiencing shortness of breath with the episodes. The shortness of breath does not go away, it is just there anytime she gets up and moves around. As soon as she sits up and gets out of bed, her heart starts racing, she will feel hot, start sweating, get nauseous, and then she will be vomiting. Most of the morning she does not feel very well and has low energy and fatigue. She has been to the hospital at [facility] and they ran everything, but they never really found anything. She does not think they looked at her thyroid. They did an EKG and tested her iron because she was borderline iron deficient. They tested her blood sugar and it was low. Her mother is hypoglycemic, and she thought maybe that could be the cause of her symptoms. She does not have an appetite, but she will usually feel a little bit better when she eats. This morning she felt okay, but when she woke up in the middle of the night, she drank a cup of apple juice and ate some hard candies. Today, her heart was racing for 10 to 15 minutes, otherwise she has been fine. She is taking an iron supplement and magnesium. She is drinking a lot more water. She denies any syncopal episodes. She states 4 to 5 days ago, she had to call the ambulance. She was home and went to change her daughter's diaper and she felt like she was in a vomit. She vomited, felt lightheaded, lost her balance, heart started racing, and she was sweating. The next day she was driving and she had to seedling puller, due to feeling dizzy, nauseous, and brain fog. She denies any chance of . The hospital tested her for and it was negative. 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 She denies any chest pain. She denies any issues with swallowing. She denies any bowel or bladder issues. She has a decreased appetite. Review of Systems Constitutional: no fever, positive chills, positive sweats, positive fatigue Skin: no discoloration, no rash, no lesions, no cyanosis. ENMT: no ear pain, no sore throat, no congestion, no vision change. Respiratory: no shortness of breath, no cough, no orthopnea, no wheezing. Cardiovascular: no chest pain, no palpitations, no edema. Positive for tachycardia. Gastrointestinal: + nausea, no vomiting, no diarrhea, no constipation no GI bleeding. Genitourinary: no dysuria, no hematuria, no discharge, no pain. Musculoskeletal: no back pain, no trauma, no change in ROM, no stiffness Neurologic: no headache, no dizziness, no numbness, no weakness. Positive for near syncope. Psychiatric: no sleeping problems, no irritability, no mood swings/depression. Heme/Lymph: no bleeding tendency, no bruising tendency, no petechiae, no swelling Allergy/Immunologic : no seasonal allergies, no food allergies, no recurrent infections, no impaired immunity. Physical Exam Vitals & Measurements T: 36.4 ?C(Temporal Artery) HR: 92(Peripheral) BP: 102/64 SpO2: 95% HT: 65 in HT: 165 cm WT: 62.1 kg WT: 136.62 lb BMI: 22.81 General: Well-developed, well nourished, patient here in no acute distress Head: Normocephalic/atrau matic Eyes: PERRLA and EOM intact. Conjunctivae and sclerae normal. No drainage. Ears: No deformity or lesions to external ears. Canals and TMs appear normal bilaterally. TMs intact with normal light reflex, not inflamed and without effusions. Hearing grossly normal to conversational speech Nose: No deformity, discharge, inflammation or lesions Mouth: Mucous membranes moist. Normal oropharynx and posterior pharynx without lesions, edema, erythema, or exudates. Tongue normal Neck: Neck supple. No masses or palpable cervical nodes. Trachea midline. Thyroid without nodules, masses, tenderness, or enlargement Lungs: Normal respiratory effort, no distress. Jovana (more content not included)... [facility] Comment on above: Result Comment: Elec tronically Signed By: Hilaria Ward NP\.br\Date and Time Signed: 04/07/22 15:13 EDT\.br\Electronically Co-Signed By: Jada Light.br\Date and Time Co-Signed: 04/02/22 17:17 EDT Basophils Auto (Bld) [#/Vol] Ordered By: Gary Orantes on 03-31-2022 Basophils (Bld) [#/Vol] 0.0 10*3/uL 0.0-0.[address] [facility] Basophils/100 WBC Auto (Bld) Ordered By: Gary Orantes on 03-31-2022 Basophils/100 WBC (Bld) 0.4 % . [facility] Blood hemoglobin measurement (mass/volume)Ordered By: Gary Orantes on 03-31-2022 Hemoglobin (Bld) [Mass/Vol] 12.1 g/dL 11.8-15.[address] [facility] Blood leukocytes automated c ount (number/volume)Ordered By: Gary Orantes on 03-31-2022 WBC (Bld) [#/Vol] 7.3 10*3/uL 4.5-11.0 [facility] Creatinine and Glomerular fi ltration rate.predicted panel (S/P/Bld)Ordered By: Gary Orantes on 03-31-2022 Creatinine [Mass/Vol] 0.93 mg/dL 0.44-1.03 [facility] Eosinophils Auto (Bld) [#/Vo l]Ordered By: Gary Orantes on 03-31-2022 Eosinophils (Bld) [#/Vol] 0.0 10*3/uL 0.0-0.[address] [facility] Eosinophils/100 WBC Auto (Bl d)Ordered By: Gary Orantes on 03-31-2022 Eosinophils/100 WBC (Bld) 0.1 % . [facility] Erythrocyte distribution wid th Auto (RBC) [Ratio]Ordered By: Gary Orantes on 03-31-2022 Erythrocyte distribution width (RBC) [Ratio] 18.8 % 11.9-15.[address] [facility] Estimated glomerular filtrat ion rate (GFR) non- AmericanOrdered By: Gary Orantes on 03-31-2022 GFR/1.73 sq M.predicted among non-blacks MDRD (S/P/Bld) [Vol rate/Area] > 60 mL/Min [facility] Hematocrit Auto (Bld) [Volum e fraction]Ordered By: Gary Orantes on 03-31-2022 Hematocrit (Bld) [Volume fraction] 38.0 % 34.0-46.[address] [facility] Laboratory - Chemistry and C hemistry - challengeOrdered By: Gary Orantes on 03-31-2022 Magnesium [Mass/Vol] 2.2 mg/dL 1.6-2.6 [facility] Laboratory - Hematology and Cell countsOrdered By: Gary Orantes on 03-31-2022 Nucleated RBC/100 WBC (Bld) [Ratio] 0.0 % 0-0.[address] [facility] Lymphocytes Auto (Bld) [#/Vo l]Ordered By: Gary Orantes on 03-31-2022 Lymphocytes (Bld) [#/Vol] 1.5 10*3/uL 1.00-4.[address] [facility] Lymphocytes/100 WBC Auto (Bl d)Ordered By: Gary Orantes on 03-31-2022 Lymphocytes/100 WBC (Bld) 20.8 % . [facility] MCH Auto (RBC) [Entitic mass ]Ordered By: Gary Orantes on 03-31-2022 MCH (RBC) [Entitic mass] 25.4 pg 24.7-34.[address] [facility] MCHC Auto (RBC) [Mass/Vol]Or dered By: Gary Orantes on 03-31-2022 MCHC (RBC) [Mass/Vol] 31.8 g/dL 32.0-35.0 [facility] MCV Auto (RBC) [Entitic vol] Ordered By: Gary Orantes on 03-31-2022 MCV (RBC) [Entitic vol] 80.0 fL 80-100 [facility] Monocytes Auto (Bld) [#/Vol] Ordered By: Gary Orantes on 03-31-2022 Monocytes (Bld) [#/Vol] 0.3 10*3/uL 0.0-0.[address] [facility] Monocytes/100 WBC Auto (Bld) Ordered By: Gary Orantes on 03-31-2022 Monocytes/100 WBC (Bld) 4.6 % . [facility] Neutrophils Auto (Bld) [#/Vo l]Ordered By: Gary Orantes on 03-31-2022 Neutrophils (Bld) [#/Vol] 5.4 10*3/uL 1.8-7.[address] [facility] Neutrophils/100 WBC Auto (Bl d)Ordered By: Gary Orantes on 03-31-2022 Neutrophils/100 WBC (Bld) 74.1 % . [facility] No Panel InformationOrdered By: Gary Orantes on 03-31-2022 Estimated GFR () > 60 mL/Min [facility] Comment on above: GFR estimated refere nce range: According to KDOQI guidelines, <60 ml/min/1.73m2 is sufficient to diagnose a patient with chronic kidney disease. Pharmacy Creatinine Clearance (Chem 79.[address] [facility] Platelet mean volume Auto (B ld) [Entitic vol]Ordered By: Gary Orantes on 03-31-2022 Platelet mean volume (Bld) [Entitic vol] 9.4 fL 6.3-10.[address] [facility] Platelets Auto (Bld) [#/Vol] Ordered By: Gary Orantes on 03-31-2022 Platelets (Bld) [#/Vol] 210 10*3/uL 150-[address] [facility] RBC Auto (Bld) [#/Vol]Ordere d By: Gary Orantes on 03-31-2022 RBC (Bld) [#/Vol] 4.75 10*6/uL 3.60-5.00 [facility] Serum or plasma anion gap de terminationOrdered By: Gary Orantes on 03-31-2022 Anion gap [Moles/Vol] 14.5 mmol/L 6.0-15.0 [facility] Serum or plasma calcium john urement (mass/volume)Ordered By: Gary Orantes on 03-31-2022 Calcium [Mass/Vol] 9.5 mg/dL 8.2-10.2 [facility] Serum or plasma chloride lo surement (moles/volume)Ordered By: Gary Orantes on 03-31-2022 Chloride [Moles/Vol] 103 mmol/L 95-114 [facility] Serum or plasma glucose john urement (mass/volume)Ordered By: Gary Orantes on 03-31-2022 Glucose [Mass/Vol] 74 mg/dL 70-100 [facility] Comment on above: ADA recommended refe rence range Random Glucose Reference Range is dependent on time and content of last meal. Glucose of more than 200 mg/dL in a nonstressed, ambulatory subject supports the diagnosis of Diabetes Mellitus. Serum or plasma potassium me asurement (moles/volume)Ordered By: Gary Orantes on 03-31-2022 Potassium [Moles/Vol] 3.7 mmol/L 3.5-5.1 [facility] Serum or plasma sodium measu rement (moles/volume)Ordered By: Gary Orantes on 03-31-2022 Sodium [Moles/Vol] 140 mmol/L 136-146 [facility] Serum or plasma total carbon dioxide measurement (moles/volume)Ordered By: Gary Orantes on 03-31-2022 CO2 [Moles/Vol] 26.2 mmol/L 22.0-30.0 [facility] Serum or plasma urea nitroge n measurement (mass/volume)Ordered By: Gary Orantes on 03-31-2022 Urea nitrogen [Mass/Vol] 9 mg/dL 04-[address] [facility] Albumin [Mass/volume] in Ser um or PlasmaOrdered By: Chris Draper on 03-28-2022 Albumin [Mass/Vol] 3.9 g/dL 3.2-5.5 [facility] Automated erythrocytes count in urine sediment (number/area)Ordered By: Chris Draper on 03-28-2022 RBC Auto (Urine sed) [#/Area] 1-2 [HPF] 0-[address] [facility] Automated leukocytes count i n urine sediment (number/area)Ordered By: Chris Draper on 03-28-2022 WBC Auto (Urine sed) [#/Area] 3-4 [HPF] 0-[address] [facility] Automated urine hyaline cast s count (number/volume)Ordered By: Chris Draper on 03-28-2022 Hyaline casts Auto (U) [#/Vol] None seen [LPF] 0-[address] [facility] Basophils Auto (Bld) [#/Vol] Ordered By: Chris Draper on 03-28-2022 Basophils (Bld) [#/Vol] 0.0 10*3/uL 0.0-0.[address] [facility] Basophils/100 WBC Auto (Bld) Ordered By: Chris Draper on 03-28-2022 Basophils/100 WBC (Bld) 0.6 % . [facility] Bilirubin Test strip Ql (U)O rdered By: Chris Draper on 03-28-2022 Bilirubin Ql (U) Negative Negative [facility] Blood hemoglobin measurement (mass/volume)Ordered By: Chris Draper on 03-28-2022 Hemoglobin (Bld) [Mass/Vol] 12.7 g/dL 11.8-15.[address] [facility] Blood leukocytes automated c ount (number/volume)Ordered By: Chris Draper on 03-28-2022 WBC (Bld) [#/Vol] 4.7 10*3/uL 4.5-11.0 [facility] COVID-19 SOFIAOrdered By: Karoline Draper on 03-28-2022 SARS-CoV+SARS-CoV-2 (COVID-19) Ag IA.rapid Ql (Resp) Negative Negative [facility] Comment on above: This is a duplicate Karolina SARS Antigen (LILIAN) result to be used for statistical tracking purpose only. Casts typing in urine sedime nt by light microscopyOrdered By: Chris Draper on 03-28-2022 Casts LM Nom (Urine sed) None seen [LPF] None S een [facility] Color Auto (U)Ordered By: Karoline Draper on 03-28-2022 Color (U) Dark yellow Yellow [facility] Creatinine and Glomerular fi ltration rate.predicted panel (S/P/Bld)Ordered By: Chris Draper on 03-28-2022 Creatinine [Mass/Vol] 0.83 mg/dL 0.44-1.03 [facility] Eosinophils Auto (Bld) [#/Vo l]Ordered By: Chris Draper on 03-28-2022 Eosinophils (Bld) [#/Vol] 0.0 10*3/uL 0.0-0.[address] [facility] Eosinophils/100 WBC Auto (Bl d)Ordered By: Chris Draper on 03-28-2022 Eosinophils/100 WBC (Bld) 0.7 % . [facility] Erythrocyte distribution wid th Auto (RBC) [Ratio]Ordered By: Chris Draper on 03-28-2022 Erythrocyte distribution width (RBC) [Ratio] 18.6 % 11.9-15.[address] [facility] Estimated glomerular filtrat ion rate (GFR) non- AmericanOrdered By: Chris Draper on 03-28-2022 GFR/1.73 sq M.predicted among non-blacks MDRD (S/P/Bld) [Vol rate/Area] > 60 mL/Min [facility] Globulin Calc (S) [Mass/Vol] Ordered By: Chris Draper on 03-28-2022 Globulin (S) [Mass/Vol] 3.5 g/dL [facility] HCG ( test) IA.rapi d Ql (U)Ordered By: Chris Draper on 03-28-2022 HCG ( test) Ql (U) Negative [facility] Hematocrit Auto (Bld) [Volum e fraction]Ordered By: Chris Draper on 03-28-2022 Hematocrit (Bld) [Volume fraction] 39.2 % 34.0-46.[address] [facility] Ketones Auto test strip (U) [Mass/Vol]Ordered By: Chris Draper on 03-28-2022 Ketones (U) [Mass/Vol] Trace Negative [facility] Laboratory - Hematology and Cell countsOrdered By: Chris Draper on 03-28-2022 Nucleated RBC/100 WBC (Bld) [Ratio] 0.1 % 0-0.[address] [facility] Lymphocytes Auto (Bld) [#/Vo l]Ordered By: Chris Draper on 03-28-2022 Lymphocytes (Bld) [#/Vol] 1.7 10*3/uL 1.00-4.[address] [facility] Lymphocytes/100 WBC Auto (Bl d)Ordered By: Chris Draper on 03-28-2022 Lymphocytes/100 WBC (Bld) 34.9 % . [facility] MCH Auto (RBC) [Entitic mass ]Ordered By: Chris Draper on 03-28-2022 MCH (RBC) [Entitic mass] 25.6 pg 24.7-34.[address] [facility] MCHC Auto (RBC) [Mass/Vol]Or dered By: Chris Draper on 03-28-2022 MCHC (RBC) [Mass/Vol] 32.4 g/dL 32.0-35.0 [facility] MCV Auto (RBC) [Entitic vol] Ordered By: Chris Draper on 03-28-2022 MCV (RBC) [Entitic vol] 79.1 fL 80-100 [facility] Monocytes Auto (Bld) [#/Vol] Ordered By: Chris Draper on 03-28-2022 Monocytes (Bld) [#/Vol] 0.3 10*3/uL 0.0-0.[address] [facility] Monocytes/100 WBC Auto (Bld) Ordered By: Chris Draper on 03-28-2022 Monocytes/100 WBC (Bld) 7.2 % . [facility] Mucus LM Ql (Urine sed)Order ed By: Chris Draper on 03-28-2022 Mucus Ql (Urine sed) 4+ [LPF] [facility] Neutrophils Auto (Bld) [#/Vo l]Ordered By: Chris Draper on 03-28-2022 Neutrophils (Bld) [#/Vol] 2.7 10*3/uL 1.8-7.[address] [facility] Neutrophils/100 WBC Auto (Bl d)Ordered By: Chris Draper on 03-28-2022 Neutrophils/100 WBC (Bld) 56.6 % . [facility] Nitrite Test strip Ql (U)Ord ered By: Chris Draper on 03-28-2022 Nitrite Ql (U) Negative Negative [facility] No Panel InformationOrdered By: Chris Draper on 03-28-2022 D-Dimer Quantitative (PE/DVT) < 200 ng/mL 0-[address] [facility] Comment on above: The reference range for D-dimer is <243 ng/mL D-dimer units. D-dimer results must be used in conjunction with a clinical pretest probability (PTP) assessment model for deep vein thrombosis (DVT) and pulmonary embolism (PE). Results <230 ng/mL d-dimer units can be used as a negative predictor in patients with low or moderate probability for DVT/PE. Results above the exclusion threshold of 230 ng/ml D-dimer units for DVT/PE may indicate the need for further diagnostic testing. D-Dimer can be increased in hospitalized patients due to co-morbid conditions. Estimated GFR () > 60 mL/Min [facility] Comment on above: GFR estimated refere nce range: According to KDOQI guidelines, <60 ml/min/1.73m2 is sufficient to diagnose a patient with chronic kidney disease. Pharmacy Creatinine Clearance (Chem 97.[address] [facility] SARS Antigen (LFIA) [facility] Platelet mean volume Auto (B ld) [Entitic vol]Ordered By: Chris Draper on 03-28-2022 Platelet mean volume (Bld) [Entitic vol] 9.5 fL 6.3-10.[address] [facility] Platelets Auto (Bld) [#/Vol] Ordered By: Chris Draper on 03-28-2022 Platelets (Bld) [#/Vol] 198 10*3/uL 150-[address] [facility] Protein Auto test strip (U) [Mass/Vol]Ordered By: Chris Draper on 03-28-2022 Protein (U) [Mass/Vol] Trace mg/dL Negative [facility] Protein [Mass/volume] in Ser um or PlasmaOrdered By: Chris Draper on 03-28-2022 Protein [Mass/Vol] 7.4 g/dL 6.1-7.9 [facility] RBC Auto (Bld) [#/Vol]Ordere d By: Chris Draper on 03-28-2022 RBC (Bld) [#/Vol] 4.96 10*6/uL 3.60-5.00 [facility] Serum or plasma alanine nieves otransferase measurement without P-5'-P (enzymatic activiOrdered By: Chris Draper on 03-28-2022 ALT No additional P-5'-P [Catalytic activity/Vol] 14 U/L 10-60 [facility] Serum or plasma albumin/glob ulin mass ratioOrdered By: Chris Draper on 03-28-2022 Albumin/Globulin [Mass ratio] 1.1 {ratio} [facility] Serum or plasma alkaline primo sphatase measurement (enzymatic activity/volume)Ordered By: Chris Draper on 03-28-2022 ALP [Catalytic activity/Vol] 75 U/L 32-[address] [facility] Serum or plasma anion gap de terminationOrdered By: Chris Draper on 03-28-2022 Anion gap [Moles/Vol] 10.8 mmol/L 6.0-15.0 [facility] Serum or plasma aspartate am inotransferase measurement (enzymatic activity/volume)Ordered By: Chris Draper on 03-28-2022 AST [Catalytic activity/Vol] 25 U/L 10-[address] [facility] Serum or plasma calcium john urement (mass/volume)Ordered By: Chris Draper on 03-28-2022 Calcium [Mass/Vol] 9.4 mg/dL 8.2-10.2 [facility] Serum or plasma chloride lo surement (moles/volume)Ordered By: Chris Draper on 03-28-2022 Chloride [Moles/Vol] 103 mmol/L 95-114 [facility] Serum or plasma glucose john urement (mass/volume)Ordered By: Chris Draper on 03-28-2022 Glucose [Mass/Vol] 107 mg/dL 70-100 [facility] Comment on above: ADA recommended refe rence range Random Glucose Reference Range is dependent on time and content of last meal. Glucose of more than 200 mg/dL in a nonstressed, ambulatory subject supports the diagnosis of Diabetes Mellitus. Serum or plasma potassium me asurement (moles/volume)Ordered By: Chris Draper on 03-28-2022 Potassium [Moles/Vol] 3.5 mmol/L 3.5-5.1 [facility] Serum or plasma sodium measu rement (moles/volume)Ordered By: Chris Draper on 03-28-2022 Sodium [Moles/Vol] 137 mmol/L 136-146 [facility] Serum or plasma total biliru bin measurement (mass/volume)Ordered By: Chris Draper on 03-28-2022 Bilirubin [Mass/Vol] 0.4 mg/dL 0.3-1.2 [facility] Serum or plasma total carbon dioxide measurement (moles/volume)Ordered By: Chris Draper on 03-28-2022 CO2 [Moles/Vol] 26.7 mmol/L 22.0-30.0 [facility] Serum or plasma urea nitroge n measurement (mass/volume)Ordered By: Chris Draper on 03-28-2022 Urea nitrogen [Mass/Vol] 9 mg/dL 9-[address] [facility] Specific gravity Auto test s trip (U) [Rel density]Ordered By: Chris Draper on 03-28-2022 Specific gravity (U) [Rel density] 1.032 1.001-1.[address] [facility] Squamous epithelial cells de tection in urine sediment by light microscopyOrdered By: Chris Draper on 03-28-2022 Epithelial cells.squamous LM Ql (Urine sed) 10-19 [HPF] 0-[address] [facility] Urine bacteria detection by automated methodOrdered By: Chris Draper on 03-28-2022 Bacteria Auto Ql (U) None seen None Seen [facility] Urine clarity by refractomet ry automatedOrdered By: Chris Draper on 03-28-2022 Clarity Refractometry automated (U) Cloudy Clear [facility] Urine glucose measurement by automated test strip (mass/volume)Ordered By: Chris Draper on 03-28-2022 Glucose Auto test strip (U) [Mass/Vol] Normal mg/dL Normal [facility] Urine hemoglobin detection b y automated test stripOrdered By: Chris Draper on 03-28-2022 Hemoglobin Auto test strip Ql (U) Negative Negative [facility] Urine leukocyte esterase det ection by automated test stripOrdered By: Chris Draper on 03-28-2022 Leukocyte esterase Auto test strip Ql (U) 1+ Negative [facility] Urobilinogen Auto test strip (U) [Mass/Vol]Ordered By: Chris Draper on 03-28-2022 Urobilinogen (U) [Mass/Vol] Normal mg/dL Normal [facility] pH Auto test strip (U)Ordere d By: Chris Draper on 03-28-2022 pH (U) 5.5 [pH] 5.0-9.[address] [facility] COVID-19 SOFIAOrdered By: James Orantes on 01-12-2022 SARS-CoV+SARS-CoV-2 (COVID-19) Ag IA.rapid Ql (Resp) Negative Negative [facility] Comment on above: This is a duplicate Karolina SARS Antigen (LILIAN) result to be used for statistical tracking purpose only. HCG ( test) IA.rapi d Ql (U)Ordered By: Gary Orantes on 01-12-2022 HCG ( test) Ql (U) Negative [facility] No Panel InformationOrdered By: Gary Orantes on 01-12-2022 SARS Antigen (LFIA) [facility] OPIATES CONFon 05-20-2019 CODEINE Negative Normal Hoxfsd=231 [facility] Comment on above: Performed By: #### U RANDA TITUS #### [facility] [address] [place] [address] Dago Glo MORPHINE Positive Abnormal [facility] Comment on above: Performed By: #### U MADDI TITUSRO #### [facility] [address] [address] Dagolupe Cody MORPHINE GC/MS CONF 2901 ng/mL Normal Icdsrv=647 [facility] Comment on above: Performed By: #### U MADDI TITUSRO #### [facility] [address] [address] Dago Glo Opiates Ql (U) Positive Abnormal [facility] Comment on above: Result Comment: Opia te test includes Codeine and Morphine only. Performed By: #### U RANDA TITUS #### [facility] [address] [place] [address] Dagolupe Cody AMPHETAMINE CONFIRMATION, UR INEon 05-17-2019 Amphetamines Ql (U) Negative Normal Gjvlrb=329 [facility] Comment on above: Result Comment: Amph etamine test includes Amphetamine and Methamphetamine. Performed By: #### U MADDI TITUSRO #### [facility] [address] [place] [address] Dago Cody CANNABINOID (THC) CONFIRMATI ON, URINEon 05-17-2019 Cannabinoid Positive Abnormal [facility] Comment on above: Performed By: #### U MADDI TITUSRO #### [facility] [address] [place] [address] Dagolupe Cody Carboxy THC GC/MS Conf 62 ng/mL Normal Cutoff=10 [facility] Comment on above: Performed By: #### U MADDI TITUSRO #### [facility] [address] [address] Dago Cody COCAINE METABOLITE CONFIRMAT ION, URINEon 05-16-2019 BENZOYLECGNONINE GCMS 390 ng/mL Normal Dfnypg=805 [facility] Comment on above: Performed By: #### U MADDI TITUSRO #### [facility] [address] [address] Dagolupe Cody COCAINE METAB Positive Abnormal [facility] Comment on above: Performed By: #### U RANDA TITUS #### [facility] [address] [address] Dago Cody HEPATITIS C VIRUS AB W/ REFL EX QUANTon 05-16-2019 HCV AB >11.0 Critically high 0.0-0.9 [facility] Comment on above: Result Comment: . Performed By: #### RANDA BENTLEY #### [facility] [address] [place] [address] Daoglupe Cody HCV log10 Normal [facility] Comment on above: Performed By: #### MADDI BENTLEYRO #### [facility] [address] [place] [address] Dago Cody Hep C Quantitation HCV Not Detected Normal [facility] Comment on above: Performed By: #### RANDA BENTLEY #### [facility] [address] [place] [address] Dago Cody Interpretation Comment Normal [facility] Comment on above: Result Comment: Posi tive HCV antibody screen without the presence of HCV RNA is consistent with a resolved past infection or a false positive HCV antibody. Consider repeat testing after one month. Performed By: #### RANDA BENTLEY #### [facility] [address] [place] [address] Dago Cody Test Information: Comment Normal [facility] Comment on above: Result Comment: The quantitative range of this assay is 15 IU/mL to 100 million IU/mL. Performed By: #### RANDA BENTLEY #### [facility] [address] [place] [address] Dago Cody HGB(ELECTP) FRACTION PROFILE on 05-16-2019 Hemoglobin (Bld) [Mass/Vol] 98.0 % Normal 96.4-98.8 [facility] Comment on above: Performed By: #### RANDA BENTLEY #### [facility] [address] [place] [address] Dago Cody Hgb A2 2.0 % Normal 1.8-3.2 [facility] Comment on above: Performed By: #### RANDA BENTLEY #### [facility] [address] [place] [address] Dago Glo Hgb C 0.0 % Normal 0.0 [facility] Comment on above: Performed By: #### U RANDA TITUS #### [facility] [address] [place] [address] Dago Glo Hgb F 0.0 % Normal 0.0-2.0 [facility] Comment on above: Performed By: #### U MADDI TITUSRO #### [facility] [address] [place] [address] Dago Glo Hgb S 0.0 % Normal 0.0 [facility] Comment on above: Performed By: #### U MADDI TITUSRO #### [facility] [address] [place] [address] Dago Glo Hgb Solubility Negative Normal Negative [facility] Comment on above: Performed By: #### MADDI BENTLEYRO #### [facility] [address] [place] [address] Dago Glo Hgb Variant Normal [facility] Comment on above: Performed By: #### RANDA BENTLEY #### [facility] [address] [place] [address] Dago Cody Interpretation Comment Normal [facility] Comment on above: Result Comment: Norm al adult hemoglobin present. Performed By: #### U MADDI TITUSRO #### [facility] [address] [place] [address] Dago Cody HEP B SURFACE ANTIGEN SCREEN on 05-14-2019 HBsAg Screen Negative Normal Negative [facility] Comment on above: Performed By: #### U MADDI TITUSRO #### [facility] [address] [place] [address] Dago Cody HEPATITIIS C VIRUS ANTIBODYo n 05-14-2019 Hep C Virus Ab >11.0 Critically high 0.0-0.9 [facility] Comment on above: Result Comment: Nega tive: < 0.8 Indeterminate: 0.8 - 0.9 Positive: > 0.9 . The CDC recommends that a positive HCV antibody result be followed up with a HCV Nucleic Acid Amplification test (899042). Performed By: #### H CV #### [facility] [address] [place] [address] Dago Cody HIV 1 AND 2 WITH REFLEXon HIV Screen 4th Generation wRfx Non Reactive Normal Non Reactive [facility] Comment on above: Performed By: #### H IV12 #### [facility] [address] [place] [address] Dago Cody RPR QUANTon 05-14-2019 Rapid Plasma Reagin, Quant Non Reactive Normal NonRea<1:1 [facility] Comment on above: Performed By: #### U RANDA TITUS #### [facility] [address] [place] [address] Dago Cody RUBELLA AB IGGon 05-14-2019 Rubella Antibodies, IgG 1.02 index Normal Immune >0.99 [facility] Comment on above: Result Comment: Non- immune <0.90 Equivocal 0.90 - 0.99 Immune >0.99 Performed By: #### U RANDA TITUS #### [facility] [address] [place] [address] Dago Cody CBC AUTO DIFFon 05-13-2019 Basophils (Bld) [#/Vol] 0.0 103/ul Normal 0.0-0.1 [facility] Comment on above: Performed By: #### C BC #### [facility] [address] [place] [address] Dago Glo Basophils/100 WBC (Bld) 0.1 % Critically low 0.2-2.0 [facility] Comment on above: Performed By: #### C BC #### [facility] [address] [place], [place] [id number] Dago Glo Eosinophils (Bld) [#/Vol] 0.0 103/ul Normal 0.0-0.7 [facility] Comment on above: Performed By: #### C BC #### [facility] [address] [place], [place] [id number] Dago Glo Eosinophils/100 WBC (Bld) 0.0 % Critically low 0.9-7.0 [facility] Comment on above: Performed By: #### C BC #### [facility] [address] [place], [place] [id number] Dago Cody Erythrocyte distribution width (RBC) [Ratio] 17.5 % Critically high 11.0-15.0 [facility] Comment on above: Performed By: #### C BC #### [facility] [address] [place], [place] [id number] Dago Glo Hematocrit (Bld) [Volume fraction] 33.1 % Critically low 36.0-48.0 [facility] Comment on above: Performed By: #### C BC #### [facility] [address] [place] [address] Dago Glo Hemoglobin (Bld) [Mass/Vol] 9.5 g/dL Critically low 12.0-16.0 [facility] Comment on above: Performed By: #### C BC #### [facility] [address] [place] [address] Dago Glo IG # 0.05 10e3/ul Critically high 0.00-0.03 [facility] Comment on above: Performed By: #### C BC #### [facility] [address] [place] [address] Dagolupe Cody IG % 0.6 % Critically high 0.0-0.5 [facility] Comment on above: Performed By: #### C BC #### [facility] [address] [place] [address] Dago Glo Lymphocytes (Bld) [#/Vol] 1.4 103/ul Normal 1.2-3.8 [facility] Comment on above: Performed By: #### C BC #### [facility] [address] [place], [place] [id number] Dago Glo Lymphocytes/100 WBC (Bld) 17.1 % Critically low 20.5-60.0 [facility] Comment on above: Performed By: #### C BC #### [facility] [address] [place], [place] [id number] Dago Glo MANUAL DIFF REQ NO Normal [facility] Comment on above: Performed By: #### C BC #### [facility] [address] [id number] Dago Glo MCH (RBC) [Entitic mass] 19.6 pg Critically low 26.7-34 .0 [facility] Comment on above: Performed By: #### C BC #### [facility] [address] [place], [place] [id number] Dagolupe Vegasen MCHC (RBC) [Mass/Vol] 28.7 g/dL Critically low 29.9-35.2 [facility] Comment on above: Performed By: #### C BC #### [facility] [address] [place], [place] [id number] Dago Glo MCV (RBC) [Entitic vol] 68.4 fL Critically low 81.0-99. 0 [facility] Comment on above: Performed By: #### C BC #### [facility] [address] [place] [address] Dago Glo Monocytes (Bld) [#/Vol] 0.3 103/ul Normal 0.3-0.8 [facility] Comment on above: Performed By: #### C BC #### [facility] [address] [place], [place] [id number] Dgao Glo Monocytes/100 WBC (Bld) 3.8 % Normal 1.7-12.0 [facility] Comment on above: Performed By: #### C BC #### [facility] [address] [place] [address] Dago Glo Neutrophils (Bld) [#/Vol] 6.2 103/ul Normal 1.4-6.5 [facility] Comment on above: Performed By: #### C BC #### [facility] [address] [place], [place] [id number] Dago Glo Neutrophils/100 WBC (Bld) 78.4 % Critically high 43.0-75.0 [facility] Comment on above: Performed By: #### C BC #### [facility] [address] [place], [place] [id number] Dago Glo Platelet mean volume (Bld) [Entitic vol] 10.7 fL Normal 9.5-13.5 [facility] Comment on above: Performed By: #### C BC #### [facility] [address] [place] [address] Dago Cody Platelets (Bld) [#/Vol] 186 103/ul Normal 150-450 [facility] Comment on above: Performed By: #### C BC #### [facility] [address] [place] [address] Dago Cody RBC (Bld) [#/Vol] 4.84 106/ul Normal 4.20-5.40 [facility] Comment on above: Performed By: #### C BC #### [facility] [address] [place] [address] Dago Cody WBC (Bld) [#/Vol] 8.0 103/ul Normal 4.0-11.0 [facility] Comment on above: Performed By: #### C BC #### [facility] [address] [place] [address] Dagolupe Cody DRUG SCREEN RAPID (URINE)on 05-13-2019 AMP Negative Normal NEGATIVE [facility] Comment on above: Performed By: #### D RUGRPD #### [facility] [address] [place] [address] D[place] Glo BAR Negative Normal NEGATIVE [facility] Comment on above: Performed By: #### D RUGRPD #### [facility] [address] [place] [address] D[place] Glo BUP Negative Normal NEGATIVE [facility] Comment on above: Performed By: #### D RUGRPD #### [facility] [address] [place] [address] D[place] Glo BZO Negative Normal NEGATIVE [facility] Comment on above: Performed By: #### D RUGRPD #### [facility] [address] [place] [address] Dago Glo LÓPEZ Positive Normal NEGATIVE [facility] Comment on above: Performed By: #### D RUGRPD #### [facility] [address] [place] [address] D[place] Glo CUT-OFFS SEE BELOW Normal [facility] Comment on above: Result Comment: AMP (Amphetamine): 500ng/mL, BAR (Barbituates): 200 ng/mL, BZO (Benzodiazepines): 150 ng/mL, BUP (Buprenorphine): 10 ng/mL, LÓPEZ (Cocaine): 150 ng/mL, mAMP (Methamphetamine): 500 ng/mL, MTD (Methadone): 200 ng/mL, OPI (Opiates): 100 ng/mL or 2000 ng/mL, OXY (Oxycodone): 100 ng/mL, PCP (Phencyclidine): 25 ng/mL, PPX (Propoxyphene): 300 ng/mL, THC (Cannabinoids): 50 ng/mL, TCA (Trycyclic Antidepressants): 300 ng/mL Performed By: #### D RUGRPD #### [facility] [address] [place] [address] DRUG CUT HEADER DRUG CLASS TEST SYSTEM CUT-OFF CONCENTRATIONS ARE FOLLOWS: Normal [facility] Comment on above: Performed By: #### D RUGRPD #### [facility] [address] [place] [address] D[place] Glo mAMP Positive Normal NEGATIVE [facility] Comment on above: Performed By: #### D RUGRPD #### [facility] [address] [place] [address] Dago Glo MTD Negative Normal NEGATIVE [facility] Comment on above: Performed By: #### D RUGRPD #### [facility] [address] [address] Dago Glo OPI Positive Normal NEGATIVE [facility] Comment on above: Performed By: #### D RUGRPD #### [facility] [address] [address] Dago Glo OXY Negative Normal NEGATIVE [facility] Comment on above: Performed By: #### D RUGRPD #### [facility] [address] [place] [address] Dago Glo PCP Negative Normal NEGATIVE [facility] Comment on above: Performed By: #### D RUGRPD #### [facility] [address] [place] [address] Dago Cody PPX Negative Normal NEGATIVE [facility] Comment on above: Performed By: #### D RUGRPD #### [facility] [address] [place] [address] Dago Cody TCA Negative Normal NEGATIVE [facility] Comment on above: Performed By: #### D RUGRPD #### [facility] [address] [place] [address] Dago Cody THC Positive Normal NEGATIVE [facility] Comment on above: Performed By: #### D RUGRPD #### [facility] [address] [place] [address] Dago Cody GLYCOHEMOGLOBIN A1Con 2018 Glucose [Mass/Vol] 108 mg/dL Normal [facility] Comment on above: Performed By: #### A 1C #### [facility] [address] [place] [address] Dago Cody HbA1c (Bld) [Mass fraction] 5.4 % Normal <=6.0 [facility] Comment on above: Performed By: #### A 1C #### [facility] [address] [place] [address] Dago Cody TYPE AND SCREENon 05-13-2019 TYPE AND SCREEN Negative Normal [facility] Comment on above: Performed By: #### T NS #### [facility] [address] [place] [address] Dago Cody 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 Bilirubin [Mass/Vol] Negative Normal NEGATIVE [facility] Comment on above: Performed By: #### U ACSJUDY UMICRO #### [facility] [address] [place] [address] Dago Cody BLOOD TRACE-LYSED Normal NEGATIVE [facility] Comment on above: Performed By: #### U ACSIND, UMICRO #### [facility] [address] [place] [address] Dago Cody Clarity (U) CLEAR Normal [facility] Comment on above: Performed By: #### U ACSJUDY UMICRO #### [facility] [address] [address] Dago Glo Color (U) YELLOW Normal YELLOW [facility] Comment on above: Performed By: #### U MADDI TITUSRO #### [facility] [address] [address] Dago Glo Glucose [Mass/Vol] Negative Normal NEGATIVE [facility] Comment on above: Performed By: #### U MADDI TITUSRO #### [facility] [address] [place] [address] Dago Glo Ketones Ql (U) Negative Normal NEGATIVE [facility] Comment on above: Performed By: #### U MADDI TITUSRO #### [facility] [address] [place] [address] Dago Glo Nitrite Ql (U) Negative Normal NEGATIVE [facility] Comment on above: Performed By: #### U MADDI TITUSRO #### [facility] [address] [place] [address] Dago Glo pH (Bld) 6.5 Normal 5-9 [facility] Comment on above: Performed By: #### U RANDA TITUS #### [facility] [address] [place] [address] Dago Glo Protein [Mass/Vol] TRACE Normal [facility] Comment on above: Performed By: #### U RANDA TITUS #### [facility] [address] [place] [address] Dago Glo SPEC GRAVITY 1.025 Normal 1.005-<=1.02 5 [facility] Comment on above: Performed By: #### U MADDI TITUSRO #### [facility] [address] [place] [address] Dago Glo UR MICRO IND INDICATED Normal [facility] Comment on above: Performed By: #### U MADDI TITUSRO #### [facility] [address] [place] [address] Dago Glo Urobilinogen Qn (U) 1.0 EU/dl Normal [facility] Comment on above: Performed By: #### U ACSIND, UMICRO #### [facility] [address] [id number] Dago Glo WBC (Bld) [#/Vol] Negative Normal NEGATIVE [facility] Comment on above: Performed By: #### U ACSIND, UMICRO #### [facility] [address] [place], [place] [address] Dago Glo URINE MICROSCOPIC ONLYon Bacteria LM.HPF (Urine sed) [#/Area] NONE SEEN Normal NONE SEEN [facility] Comment on above: Performed By: #### U ACSJUDY, UMICRO #### [facility] [address] [address] Dago Glo CAST NONE SEEN Normal NONE SEEN [facility] Comment on above: Performed By: #### U ACSIND, UMICRO #### [facility] [address] [place] [address] Dago Glo Crystals LM Nom (Urine sed) NONE SEEN Normal NONE SEEN [facility] Comment on above: Performed By: #### U ACSJUDY, UMICRO #### [facility] [address] [address] Dago Glo CULTURE NOT INDICATED Normal [facility] Comment on above: Performed By: #### U ACSJUDY, UMICRO #### [facility] [address] [place], [place] [id number] Dago Glo Epithelial cells LM.HPF (Urine sed) [#/Area] FEW Normal [facility] Comment on above: Performed By: #### U ACSIND, UMICRO #### [facility] [address] [id number] Dago Glo MUCOUS NONE SEEN Normal NONE SEEN [facility] Comment on above: Performed By: #### U ACSIND, UMICRO #### [facility] [address] [id number] Dago Glo RBC (U) [#/Vol] 0-2 Normal 0-2 [facility] Comment on above: Performed By: #### U ACSIND, UMICRO #### [facility] [address] [place], [place] [address] Dago Cody WBC (Bld) [#/Vol] NONE SEEN Normal NONE SEEN [facility] Comment on above: Performed By: #### U ACSRANDA KIM #### [facility] [address] [place], [place] [address] Dago Cody US PREG CERVICAL LENGTHon US PREG CERVICAL LENGTH Patient: CYNDIE BLAIR Exam Date: 05/13/2019 : 1990 Gender:F Ordering : DR HERNANDEZ TORRES . Admission #: [id number] Family : Order #: [id number] CLICK HERE TO VIEW EXAM RADIOLOGY REPORT PROCEDURE: ULTRASOUND CERVICAL LENGTH COMPARISON: None. INDICATIONS: unknown JESSI TECHNIQUE: Transvaginal sonographic examination for cervical length. FINDINGS: Cervix Length: 2.8 cm in length. Closed. Heart Rate: bpm: 141 Position: Cephalic Age by EDC: 38 weeks, 5 days JESSI by EDC: May 22, 2019 CONCLUSION: 1. Closed cervix measuring 2.8 cm Dictated by: Priyanka Tao M.D. on 05/13/2019 at 15:17 Approved by: Priyanka Tao M.D. on 05/13/2019 at 15:18 Normal [facility] US PREG GROWTHon 05-13-2019 US PREG GROWTH Patient: CYNDIE BLAIR Exam Date: 05/13/2019 : 1990 Gender:F Ordering : DR HERNANDEZ TORRES . Admission #: [id number] Family : Order #: [id number] CLICK HERE TO VIEW EXAM RADIOLOGY REPORT PROCEDURE: ULTRASOUND GROWTH COMPARISON: None. INDICATIONS: Gestational age unknown TECNIQUE: Transabdominal sonographic examination for growth. FINDINGS: NUMBER: One. POSITION: Cephalic. AMNIOTIC FLUID VOL: ; cm MAXIMUM VERTICAL POCKET: cm BIPARIETAL DIAMETER: 9.3 cm; 37w 4d HEAD CIRCUMFERENCE: 32.05 cm; 36w 1d ABD CIRCUMFERENCE: 33.8 cm; 37w 5d FEMUR LENGTH: 7.3 cm; 37w 4d HC/AC: 0.95 FL/AC: 21.7 FL/BPD: 79.3 HEART RATE: 141 bpm BIOMETRY: BPD: 9.26 cm 37 weeks, 4 days 50.70 % FL/AC: 21.75 HC: 32.05 cm 36 weeks, 1 day 3 % FL/BPD: 79.33 AC: 33.77 cm 37 weeks, 5 days 41 % HC/AC: 0.95 FL: 7.34 cm 37 weeks, 4 days 27.40 % EFW: 3219.76 g 36% by AUA, GESTATIONAL AGE: Age by EDC: 38 weeks, 5 days JESSI by EDC: 2019-05-22 Age by US: 37 weeks, 2 days JESSI by US: 2019-06-01 CONCLUSION: 1. Normal interval growth Dictated by: Priyanka Tao M.D. on 05/13/2019 at 15:12 Approved by: Priyanka Tao M.D. on 05/13/2019 at 15:17 Normal [facility] Vital Signs Date Time Vital Sign Value Performing Clinician Faci lity 08-10-2024 14:14-0500 Body mass index (BMI) [Ratio] 27.26 kg/m2 Shea Og PA Work Phone: [facility] 08-10-2024 14:14-0500 Body weight 74.3 kg Shea [place] PA Work Phone: [facility] 08-10-2024 14:14-0500 Diastolic blood pressure 80 mm[Hg] Shea [place] PA Work Phone: [facility] 08-10-2024 14:14-0500 Systolic blood pressure 122 mm[Hg] Shea [place] PA Work Phone: [facility] 08-03-2024 11:06-0500 Body mass index (BMI) [Ratio] 27.19 kg/m2 Shea Josette PA Work Phone: [facility] 08-03-2024 11:06-0500 Body weight 74.12 kg Shea Josette PA Work Phone: [facility] 08-03-2024 11:06-0500 Diastolic blood pressure 68 mm[Hg] Shea Josette PA Work Phone: [facility] 08-03-2024 11:06-0500 Systolic blood pressure 102 mm[Hg] Shea Josette PA Work Phone: [facility] 07-20-2024 15:48-0500 Body mass index (BMI) [Ratio] 26.29 kg/m2 Shea [place] PA Work Phone: [facility] 07-20-2024 15:48-0500 Body weight 71.67 kg Shea [place] PA Work Phone: [facility] 07-20-2024 15:48-0500 Diastolic blood pressure 60 mm[Hg] Shea [place] PA Work Phone: [facility] 07-20-2024 15:48-0500 Systolic blood pressure 100 mm[Hg] Shea Josette PA Work Phone: [facility] 07-04-2024 14:36-0500 Body mass index (BMI) [Ratio] 25.79 kg/m2 Shea [place] PA Work Phone: [facility] 07-04-2024 14:36-0500 Body weight 70.31 kg Shea [place] PA Work Phone: [facility] 07-04-2024 14:36-0500 Diastolic blood pressure 72 mm[Hg] Shea [place] PA Work Phone: [facility] 07-04-2024 14:36-0500 Systolic blood pressure 122 mm[Hg] Shea Josette PA Work Phone: [facility] 07-01-2024 14:49-0500 Body height 165.1 cm PHYSICIAN NO [facility] 07-01-2024 14:49-0500 Body weight 67.58 kg PHYSICIAN NO [facility] 07-01-2024 14:00-0500 Body temperature 96.6 [degF] PHYSICIAN NO [facility] 07-01-2024 14:00-0500 Diastolic blood pressure 63 mm[Hg] PHYSICIAN NO [facility] 07-01-2024 14:00-0500 Heart rate 77 /min PHYSICIAN NO [facility] 07-01-2024 14:00-0500 Respiratory rate 18 /min PHYSICIAN NO [facility] 07-01-2024 14:00-0500 SaO2% (BldA) [Mass fraction] 97 % PHYSICIAN [facility] 07-01-2024 14:00-0500 Systolic blood pressure 116 mm[Hg] PHYSICIAN [facility] 06-16-2024 11:28-0500 Body mass index (BMI) [Ratio] 24.81 kg/m2 Shea Og PA Work Phone: [facility] 06-16-2024 11:28-0500 Body weight 67.64 kg Shea [place] PA Work Phone: [facility] 06-16-2024 11:28-0500 Diastolic blood pressure 70 mm[Hg] Shea [place] PA Work Phone: [facility] 06-16-2024 11:28-0500 Systolic blood pressure 120 mm[Hg] Shea [place] PA Work Phone: [facility] 06-02-2024 11:03-0500 Body mass index (BMI) [Ratio] 24.13 kg/m2 Shea [place] PA Work Phone: [facility] 06-02-2024 11:03-0500 Body weight 65.77 kg Shea [place] PA Work Phone: [facility] 06-02-2024 11:03-0500 Diastolic blood pressure 64 mm[Hg] Shea [place] PA Work Phone: [facility] 06-02-2024 11:03-0500 Systolic blood pressure 112 mm[Hg] Shea Josette PA Work Phone: [facility] 05-03-2024 10:53-0400 Body mass index (BMI) [Ratio] 23.13 kg/m2 Alfredo Shila DO Work Phone: [facility] 05-03-2024 10:53-0400 Body weight 63.05 kg Alfredo Shila DO Work Phone: [facility] 05-03-2024 10:53-0400 Diastolic blood pressure 68 mm[Hg] Alfredo Shila DO Work Phone: [facility] 05-03-2024 10:53-0400 Systolic blood pressure 110 mm[Hg] Alfredo Fuchs DO Work Phone: [facility] 03-01-2024 11:48-0400 Body mass index (BMI) [Ratio] 21.13 kg/m2 Kimberly Gonzales DO Work Phone: [facility] 03-01-2024 11:48-0400 Body weight 57.61 kg Kimberly Gonzales DO Work Phone: [facility] 03-01-2024 11:48-0400 Diastolic blood pressure 72 mm[Hg] Kimberly Gonzales DO Work Phone: [facility] 03-01-2024 11:48-0400 Systolic blood pressure 116 mm[Hg] Kimberly Gonzales DO Work Phone: [facility] 12-19-2023 14:36-0400 Body height 167.64 cm PHYSICIAN NO [facility] 12-19-2023 14:36-0400 Body temperature 98.2 [degF] PHYSICIAN NO [facility] 12-19-2023 14:36-0400 Body weight 56 kg PHYSICIAN NO [facility] 12-19-2023 14:36-0400 Diastolic blood pressure 67 mm[Hg] PHYSICIAN NO [facility] 12-19-2023 14:36-0400 Heart rate 66 /min PHYSICIAN NO [facility] 12-19-2023 14:36-0400 Respiratory rate 16 /min PHYSICIAN NO [facility] 12-19-2023 14:36-0400 SaO2% (BldA) [Mass fraction] 100 % PHYSICIAN NO [facility] 12-19-2023 14:36-0400 Systolic blood pressure 112 mm[Hg] PHYSICIAN NO [facility] 07-15-2023 00:57-0500 Body temperature 98.4 [degF] PHYSICIAN NO [facility] 07-15-2023 00:57-0500 Diastolic blood pressure 58 mm[Hg] PHYSICIAN NO [facility] 07-15-2023 00:57-0500 Heart rate 71 /min PHYSICIAN NO [facility] 07-15-2023 00:57-0500 Respiratory rate 17 /min PHYSICIAN NO [facility] 07-15-2023 00:57-0500 SaO2% (BldA) [Mass fraction] 94 % PHYSICIAN NO [facility] 07-15-2023 00:57-0500 Systolic blood pressure 116 mm[Hg] PHYSICIAN NO [facility] 07-14-2023 22:47-0500 Body height 165.1 cm PHYSICIAN NO [facility] 07-14-2023 22:47-0500 Body weight 55 kg PHYSICIAN NO [facility] 07-11-2023 16:46-0500 Body height 160.02 cm PHYSICIAN NO [facility] 07-11-2023 16:46-0500 Body temperature 98.4 [degF] PHYSICIAN NO [facility] 07-11-2023 16:46-0500 Body weight 62 kg PHYSICIAN NO [facility] 07-11-2023 16:46-0500 Diastolic blood pressure 79 mm[Hg] PHYSICIAN NO [facility] 07-11-2023 16:46-0500 Heart rate 99 /min PHYSICIAN NO [facility] 07-11-2023 16:46-0500 Respiratory rate 18 /min PHYSICIAN NO [facility] 07-11-2023 16:46-0500 SaO2% (BldA) [Mass fraction] 98 % PHYSICIAN NO [facility] 07-11-2023 16:46-0500 Systolic blood pressure 144 mm[Hg] PHYSICIAN NO [facility] 09-08-2022 14:11-0500 Body temperature 98.42 [degF] Tito Tong [facility] 09-08-2022 14:11-0500 Diastolic blood pressure 80 mm[Hg] Tito Tong [facility] 09-08-2022 14:11-0500 Heart rate 79 /min Tito Fortune [facility] 09-08-2022 14:11-0500 Respiratory rate 16 /min Tito Fortune [facility] 09-08-2022 14:11-0500 SaO2% (BldA) [Mass fraction] 98 % Tito Fortune [facility] 09-08-2022 14:11-0500 Systolic blood pressure 127 mm[Hg] Tito Fortune [facility] 08-07-2022 04:14-0500 Heart rate 69 /min Kaylinn Dokken [facility] 08-07-2022 04:14-0500 Respiratory rate 18 /min Kaylinn Dokken [facility] 08-07-2022 04:14-0500 SaO2% (BldA) [Mass fraction] 100 % Kaylinn Dokken [facility] 08-07-2022 03:23-0500 Body temperature 97.7 [degF] Kaylinn Dokken [facility] 08-07-2022 03:23-0500 Diastolic blood pressure 80 mm[Hg] Kaylinn Dokken [facility] 08-07-2022 03:23-0500 Heart rate 68 /min Kaylinn Dokken [facility] 08-07-2022 03:23-0500 Respiratory rate 18 /min Kaylinn Dokken [facility] 08-07-2022 03:23-0500 SaO2% (BldA) [Mass fraction] 100 % Kaylinn Dokken [facility] 08-07-2022 03:23-0500 Systolic blood pressure 120 mm[Hg] Kaylinn Dokken [facility] 03-31-2022 23:46-0400 Diastolic blood pressure 74 mm[Hg] PHYSICIAN NO [facility] 03-31-2022 23:46-0400 Heart rate 60 /min PHYSICIAN NO [facility] 03-31-2022 23:46-0400 Respiratory rate 18 /min PHYSICIAN NO [facility] 03-31-2022 23:46-0400 SaO2% (BldA) [Mass fraction] 96 % PHYSICIAN NO [facility] 03-31-2022 23:46-0400 Systolic blood pressure 123 mm[Hg] PHYSICIAN NO [facility] 03-31-2022 21:45-0400 Body temperature 98.3 [degF] PHYSICIAN NO [facility] 03-31-2022 21:40-0400 Body height 165.1 cm PHYSICIAN NO [facility] 03-31-2022 21:40-0400 Body weight 61.23 kg PHYSICIAN NO [facility] 03-28-2022 10:03-0400 Body height 165.1 cm PHYSICIAN NO [facility] 03-28-2022 10:03-0400 Body weight 69.9 kg PHYSICIAN NO [facility] 03-28-2022 10:02-0400 Body temperature 98.1 [degF] PHYSICIAN NO [facility] 03-28-2022 10:02-0400 Diastolic blood pressure 61 mm[Hg] PHYSICIAN NO [facility] 03-28-2022 10:02-0400 Heart rate 91 /min PHYSICIAN NO [facility] 03-28-2022 10:02-0400 Respiratory rate 18 /min PHYSICIAN NO [facility] 03-28-2022 10:02-0400 SaO2% (BldA) [Mass fraction] 97 % PHYSICIAN NO [facility] 03-28-2022 10:02-0400 Systolic blood pressure 133 mm[Hg] PHYSICIAN NO [facility] 01-12-2022 12:05-0400 Diastolic blood pressure 71 mm[Hg] PHYSICIAN NO [facility] 01-12-2022 12:05-0400 Heart rate 85 /min PHYSICIAN NO [facility] 01-12-2022 12:05-0400 Respiratory rate 18 /min PHYSICIAN NO [facility] 01-12-2022 12:05-0400 SaO2% (BldA) [Mass fraction] 97 % PHYSICIAN NO [facility] 01-12-2022 12:05-0400 Systolic blood pressure 108 mm[Hg] PHYSICIAN NO [facility] 01-12-2022 06:43-0400 Body height 165.1 cm PHYSICIAN NO [facility] 01-12-2022 06:43-0400 Body mass index (BMI) [Ratio] 23.3 kg/m2 PHYSICIAN NO [facility] 01-12-2022 06:43-0400 Body weight 63.5 kg PHYSICIAN NO [facility] 01-12-2022 06:42-0400 Body temperature 97.9 [degF] PHYSICIAN NO [facility] Encounters Encounter Date Encounter Type Care Provider Facility Start: 08-10-2024 End: 08-10-2024 ambulatory SHEA OG Not Available Start: 08-10-2024 End: 08-10-2024 Bamboo flowsheet Shea DIAZ Work Phone: [facility] Start: 08-10-2024 End: 08-10-2024 Bamboo flowsheet Shea DIAZ Work Phone: [facility] Start: 08-10-2024 End: 08-10-2024 Office outpatient visit 15 minutes Shea DIAZ Work Phone: [facility] Comment on above: Third trimester preg ruthann; 38 weeks gestation of Start: 08-03-2024 End: 08-03-2024 Bamboo flowsheet Shea DIAZ Work Phone: [facility] Start: 08-03-2024 End: 08-03-2024 Bamboo flowsheet Shea DIAZ Work Phone: [facility] Start: 08-03-2024 End: 08-03-2024 ambulatory SHEA OG Not Available Start: 08-03-2024 End: 08-03-2024 Office outpatient visit 15 minutes Shea DIAZ Work Phone: [facility] Comment on above: Third trimester preg ruthann; 37 weeks gestation of ; Breech presentation, single or unspecified fetus; Request for sterilization Start: 07-27-2024 End: 07-27-2024 ambulatory ALFREDO SHILA Not Available Start: 07-27-2024 End: 07-27-2024 Bamboo flowsheet Alfredo Shila DO Work Phone: [facility] Start: 07-27-2024 End: 07-27-2024 Bamboo flowsheet Alfredo Shila DO Work Phone: [facility] Start: 07-20-2024 End: 07-20-2024 ambulatory SHEA OG Not Available Start: 07-20-2024 End: 07-20-2024 Office outpatient visit 15 minutes Shea DIAZ Work Phone: [facility] Comment on above: 35 weeks gestation o f ; Third trimester Start: 07-20-2024 End: 07-20-2024 Bamboo flowsheet Shea DIAZ Work Phone: [facility] Start: 07-20-2024 End: 07-20-2024 Bamboo flowsheet Shea DIAZ Work Phone: [facility] Start: 07-14-2024 End: 07-14-2024 Patient encounter procedure PHYSICIAN NO [facility] [place] Work Phone: Start: 07-14-2024 End: 07-14-2024 ambulatory Shea Og Facility: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 Start: 06-30-2024 End: 06-30-2024 Bamboo flowsheet Shea DIAZ Work Phone: [facility] Start: 06-30-2024 End: 06-30-2024 Bamboo flowsheet Shea DIAZ Work Phone: [facility] Start: 06-16-2024 End: 06-16-2024 Office outpatient visit 15 minutes Shea DIAZ Work Phone: [facility] Comment on above: 30 weeks gestation o f ; Third trimester Start: 06-16-2024 End: 06-16-2024 ambulatory SHEA OG Not Available Start: 06-15-2024 End: 06-15-2024 Patient encounter procedure PHYSICIAN NO [facility] [place] Work Phone: Start: 06-15-2024 End: 06-15-2024 ambulatory PHYSICIAN NO FAMILY Facility:[facility] Start: 06-02-2024 End: 06-02-2024 Bamboo flowsheet Shea DIAZ Work Phone: [facility] Start: 06-02-2024 End: 06-02-2024 Bamboo flowsheet Shea DIAZ Work Phone: [facility] Start: 06-02-2024 End: 06-02-2024 ambulatory SHEA OG Not Available Start: 06-02-2024 End: 06-02-2024 Office outpatient visit 15 minutes Shea [place] PA Work Phone: [facility] Comment on above: Third trimester preg ruthann; 28 weeks gestation of ; Methadone use Start: 05-03-2024 End: 05-03-2024 Bamboo flowsheet Alfredo Shila DO Work Phone: [facility] Start: 05-03-2024 End: 05-03-2024 Bamboo flowsheet Alfredo Shila DO Work Phone: [facility] Start: 05-03-2024 End: 05-03-2024 ambulatory ALFREDO SHILA Not Available Start: 05-03-2024 End: 05-03-2024 Office outpatient visit 15 minutes Alfredo Shila DO Work Phone: [facility] Comment on above: GA: 24w2d Start: 03-04-2024 End: 03-04-2024 Bamboo flowsheet Pedro Northeim PA Work Phone: [facility] Start: 03-04-2024 End: 03-04-2024 Bamboo flowsheet Pedro Northeim PA Work Phone: [facility] Start: 03-04-2024 End: 03-04-2024 ambulatory PEDRO NORTHEIM Not Available Start: 03-04-2024 End: 03-04-2024 Office outpatient visit 25 minutes Pedro SquareClockm PA Work Phone: [facility] Comment on above: Guttate psoriasis (C MS/HCC) (Primary Dx); Psoriasis vulgaris (CMS/HCC); Acne vulgaris Start: 03-01-2024 End: 03-01-2024 Bamboo flowsheet Kimberly J Nataprawira DO Work Phone: [facility] Start: 03-01-2024 End: 03-01-2024 Bamboo flowsheet Kimberly J Nataprawira DO Work Phone: [facility] Start: 03-01-2024 End: 03-01-2024 ambulatory KIMBERLY Rachael NATAPRAWIRA Not Available Start: 03-01-2024 End: 03-01-2024 Office outpatient visit 25 minutes Kimberly Gonzales DO Work Phone: [facility] Comment on above: related co ndition, second trimester (Primary Dx); 15 weeks gestation of ; Screen for STD (sexually transmitted disease); Screening for malignant neoplasm of cervix; Encounter for screening for human papillomavirus (HPV) Start: 02-02-2024 End: 02-02-2024 ambulatory [facility]NA[facility] Not Available Start: 12-23-2023 End: 12-23-2023 [facility] Start: 12-19-2023 End: 12-19-2023 Emergency department patient visit PHYSICIAN NO [facility]Emergency Room Work Phone: Start: 07-14-2023 End: 07-15-2023 Emergency department patient visit PHYSICIAN NO [facility] Work Phone: Start: 07-11-2023 End: 07-11-2023 Emergency department patient visit PHYSICIAN NO [facility] Work Phone: Start: 09-08-2022 End: 09-08-2022 Emergency department patient visit Tito Fortune Facility:[facility] Start: 09-08-2022 End: 09-08-2022 Emergency department patient visit Tito Fortune [facility] Start: 08-07-2022 End: 08-07-2022 Emergency department patient visit Bakari Jarquin Facility:[facility] Start: 08-07-2022 End: 08-07-2022 Emergency department patient visit Bakari Jarquin [facility] Start: 04-02-2022 End: 04-03-2022 ambulatory Hilaria Ward Facility:[facility] Start: 03-31-2022 End: 03-31-2022 Emergency department patient visit PHYSICIAN NO [facility]Emergency [facility] Start: 03-31-2022 ambulatory Bakari Jarquin Facility :[facility] Start: 03-28-2022 End: 03-28-2022 Emergency department patient visit PHYSICIAN NO [facility]Emergency [facility] Start: 01-12-2022 End: 01-12-2022 Emergency department patient visit PHYSICIAN NO [facility]-Emergency Room Start: 05-13-2019 End: 05-13-2019 Evaluation and management of inpatient HERNANDEZ TORRES Facility: Start: 02-22-2018 Patient encounter Facil [id number] Procedures Date Procedure Procedure Detail Performing Clinician Start: 08-10-2024 Urnls dip stick/tabl et rgnt non-auto w/o micrscp Shea DIAZ Work Phone: Start: 08-03-2024 Urnls dip stick/tabl et rgnt non-auto w/o micrscp Shea DIAZ Work Phone: Start: 07-20-2024 Urnls dip stick/tabl et rgnt non-auto w/o micrscp Shea DIAZ Work Phone: Start: 07-14-2024 Ultrasound scan - obstetric PHYSICIAN NO [facility] Start: 07-04-2024 Urnls dip stick/tabl et rgnt non-auto w/o micrscp Shea DIAZ Work Phone: Start: 06-16-2024 Urnls dip stick/tabl et rgnt non-auto w/o micrscp Shea DIAZ Work Phone: Start: 06-02-2024 Urnls dip stick/tabl et rgnt non-auto w/o micrscp Shea DIAZ Work Phone: Start: 05-03-2024 Urnls dip stick/tabl et rgnt non-auto w/o micrscp Alfredo Fuchs DO Work Phone: Start: 03-01-2024 Urnls dip stick/tabl et rgnt non-auto w/o micrscp Kimberly Gonzales DO Work Phone: Start: 03-01-2024 Microscopic observat ion [Identifier] in Cervix by Cyto stain Pedro DIAZ Work Phone: Start: 07-14-2023 SARS-CoV-2, Influenz a & RSV (PCR) PHYSICIAN NO FAMILY Start: 03-31-2022 Plain chest X-ray PHYSI BEVERLY NO FAMILY None (qualifier value) Maura Jarquin SARS Antigen (LFIA) PHYSICIA N NO FAMILY SARS Antigen (LFIA) PHYSICIA N NO FAMILY Plan of Treatment Date Care Activity Detail Author Start: 03-01-2027 Screening for malign ant neoplasm of cervix [facility] Start: 07-27-2024 End: 07-27-2024 Patient encounter procedure [facility] Comment on above: Arrived Start: 07-04-2024 End: 07-04-2025 US biophysical profile w non stress test US biophysical profile w non stress test Imaging Routine 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 Start: 07-01-2024 Hospital admission [facility] Start: 06-30-2024 End: 06-30-2024 Patient encounter procedure 06/30/2024 10:40 AM EST Routine [facility] [address] [place] [id number] Shea Og PA [address] [place] [address] [facility] Start: 06-16-2024 End: 06-16-2024 Patient encounter procedure 06/16/2024 11:10 AM EST Routine [facility] [address] [place] [phone] Shea Og PA [address] [place], [place] [id number] [facility] Start: 06-16-2024 End: 06-16-2024 Professional / ancillary services management 06/16/2024 10:30 AM EST Ancillary Procedure [facility] [address] [facility] [facility] [place] [phone] [facility] Start: 06-02-2024 End: 06-02-2025 US for US OB SCAN FOR GROWTH Imaging Routine Third trimester Methadone use Expected: 06/02/2024 (Approximate), Expires: 06/02/2025 [facility] Work Phone: Comment on above: Expected: 06/02/2024 (Approximate), Expires: 06/02/2025 Start: 06-02-2024 End: 06-02-2024 Patient encounter procedure 06/02/2024 10:30 AM EST Routine [facility] [address] [facility] [place] [phone] Shea Og PA [address] [place] [address] [facility] Start: 05-04-2024 End: 05-04-2024 Patient encounter procedure 05/04/2024 1:00 PM EDT Office Visit [facility] [address] [place] [address] Pedro Jara PA [address] [place] [address] [facility] Start: 05-03-2024 End: 05-03-2025 CBC panel - Blood by Automated count CBC Lab Routine Diabetes mellitus screening Expected: 05/03/2024 (Approximate), Expires: 05/03/2025 [facility] Comment on above: Expected: 05/03/2024 (Approximate), Expires: 05/03/2025 Start: 05-03-2024 End: 05-03-2025 Measurement of glucose 1 hour after glucose challenge for glucose tolerance test Glucose tolerance, 1 hour Lab Routine Diabetes mellitus screening Expected: 05/03/2024 (Approximate), Expires: 05/03/2025 [facility] Comment on above: Expected: 05/03/2024 (Approximate), Expires: 05/03/2025 Start: 03-28-2024 End: 03-28-2024 Patient encounter procedure 03/28/2024 3:45 PM EDT Routine [facility] [address] [address] Kimberly Gonzales DO [address] [address] [facility] Start: 03-28-2024 End: 03-28-2024 Professional / ancillary services management 03/28/2024 3:00 PM EDT Ancillary Procedure [facility] [address] [address] [facility] Start: 03-13-2024 Influenza vaccination Influenza Vacc ine (#1) [facility] Start: 03-04-2024 End: 03-04-2024 Patient encounter procedure 03/04/2024 11:50 AM EDT Office Visit [facility] [address] [place] [address] Pedro Jara PA [address] [place] [address] [facility] Start: 07-14-2023 Plain chest X-ray XR chest 2V* [facility] Start: 07-14-2023 XR Chest 2 Views [facility] Start: 07-11-2023 Blood chemistry [facility] Start: 07-11-[address] [facility] Start: 2021 Screening for malign ant neoplasm of cervix [facility] Start: 2012 Screening for malign ant neoplasm of cervix Pap Smear [facility] Anion gap measurement [facility] Basophils [#/volume] in Blood by Automated count [facility] Basophils/100 leukocytes in Blood by Automated count [facility] Eosinophils [#/volum e] in Blood [facility] Eosinophils/100 leukocytes in Blood by Automated count [facility] Erythrocyte distribution width [Ratio] by Automated count [facility] Erythrocytes [#/volu me] in Blood [facility] Hematocrit [Volume Fraction] of Blood [facility] Hemoglobin [Mass/volume] in Blood [facility] Hemoglobin A1c/Hemoglobin.total in Blood Hemoglobin A1c Lab Routine Missed menses Ordered: 05/03/2024 [facility] Comment on above: Ordered: 05/03/2024 Hepatitis C virus Ab [Presence] in Serum or Plasma by Immunoassay Hepatitis C antibody Lab Routine Missed menses Ordered: 05/03/2024 [facility] Comment on above: Ordered: 05/03/2024 Leukocytes [#/volume ] corrected for nucleated erythrocytes in Blood by Automated coun [facility] Leukocytes [#/volume ] in Blood [facility] Lymphocytes [#/volum e] in Blood by Automated count [facility] Lymphocytes/100 leukocytes in Blood by Automated count [facility] MCH [Entitic mass] b y Automated count [facility] MCHC [Mass/volume] b y Automated count [facility] MCV [Entitic volume] by Automated count [facility] Monocytes [#/volume] in Blood by Automated count [facility] Monocytes/100 leukocytes in Blood by Automated count [facility] Neutrophils [#/volum e] in Blood by Automated count [facility] Neutrophils/100 leukocytes in Blood by Automated count [facility] Nucleated erythrocyt es [Presence] in Blood by Automated count [facility] Patient Education [facility] Work Phone: Patient referral [facility] Work Phone: Platelet mean volume [Entitic volume] in Blood by Automated count [facility] Platelets [#/volume] in Blood [facility] Reagin Ab [Presence] in Serum by RPR RPR Lab Routine Missed menses Ordered: 05/03/2024 [facility] [email or web address] Work Phone: Comment on above: Ordered: 05/03/2024 THINPREP TIS PAP, HP V MRNA E6/E7 RFX HPV 16,18/45, CHLAMYDIA/N.GONORRHOEAE THINPREP TIS PAP, HPV MRNA E6/E7 RFX HPV 16,18/45, CHLAMYDIA/N.GONORRHOEAE Pathology and Cytology Routine Screen for STD (sexually transmitted disease) Screening for malignant neoplasm of cervix Encounter for screening for human papillomavirus (HPV) Ordered: 03/01/2024 [facility] Work Phone: Comment on above: Ordered: 03/01/2024 Immunizations Immunization Date Immunization Notes Care Provider Fa cility NEGATED: Highlighted row has not occurred!01-18-2021 tetanus toxoid, reduced diphtheria toxoid, and acellular pertussis vaccine, adsorbed PHYSICIAN NO [facility] Payers Date Payer Category Payer Self-pay [id number] 2020 Medicaid [employer] [facility] [place] [id number] 2020-Present [address] [address] [place] [address] [id number] 2020 Medicaid (Managed Care) 1.2. [id number] 2020 Medicaid [id number] 1991 Unknown [id number] 2.16.840.1.573205.3.579.2. 593 1991 Unknown [id number] 2.16.840.1.885586.3.579.2. 727 1991 Unknown [id number] 2.16.840.1.417596.3.579.2. 727 1991 Unknown [id number] 2.16.840.1.630576.3.579.2. 727 1991 Unknown [id number] 2.16.840.1.517459.3.579.2. 1258 1991 Unknown [id number] 2.16.840.1.323010.3.579.2. 1258 1991 Unknown [id number] 2.16.840.1.732141.3.579.2. 1258 1991 Unknown [id number] 2.16.840.1.946966.3.579.2. 1258 1991 Unknown [id number] 2.16.840.1.332579.3.579.2. 1258 1991 Unknown [id number] 2.16.840.1.857577.3.579.2. 1258 1991 Unknown [id number] 2.16.840.1.446148.3.579.2. 1258 1991 Unknown [id number] 2.16840.1.954484.3.579.2. 1258 1991 Unknown [id number] 2.16840.1.615028.3.579.2. 1258 1991 Unknown [id number] 2.16.840.1.783685.3.579.2. 1258 1991 Unknown [id number] 2.16.840.1.800963.3.579.2. 1258 1991 Unknown [id number] 2.16.840.1.913683.3.579.2. 1258 1959 Self-pay [id number] Private Health Insurance [id number] Unknown Veronica / [id number] Unknown [id number] 2.16.840.1.248143.3.579.2. 531 Unknown [id number] 2.16.840.1.547012.3.579.2. 531 Unknown [id number] 2.16.840.1.842949.3.579.2. 531 Unknown [id number] 2.16.840.1.576829.3.579.2. 531 Social History Date Type Detail Facility Start: 03-28-2022 End: 12-23-2023 Tobacco smoking status NHIS Never smoked tobacco (finding) [facility] Start: 1990 Sex Assigned At Female F [facility] Start: 03-31-2022 Tobacco smoking status NHIS Smoker (finding) [facility] Tobacco smoking status Never [facility] Start: 02-02-2024 End: 03-04-2024 Sex Assigned At Female [facility] Start: 12-23-2023 Tobacco use and exposure Smokeless tobacco non-user [facility] Start: 03-04-2024 End: 08-03-2024 Alcoholic beverage intake Ex-drinker (finding) [facility] Start: 02-02-2024 End: 03-04-2024 History of Social function [facility] Start: 02-02-2024 Alcohol Comment Caffeine intak e: 1-2 cups coffee/weekly [facility] Start: 11-29-2023 [facility] Start: 04-12-2024 Gender identity Identifies as female gender (finding) [facility] Start: 04-12-2024 Sexual orientation Heterosexual (fin ding) [facility] Start: 1990 Sex assigned at Not on file [facility] Start: 07-15-2024 Sex Female (finding) [facility] NEGATED: Highlighted row [facility] Goals Date Patient Goal Desired Activity /State Personal health goal Functional Status Date Assessment Result Facility 09-08-2022 Functional Status N/A [facility] 08-07-2022 Functional Status N/A [facility] Clinical Notes 04-02-2022 to 08-10-2024 EMILY Naranjo - 08/10/2024 1:50 PM EMILY Montiel - 08/03/2024 10:50 AM EMILY Montiel - 07/20/2024 3:10 PM EMILY Montiel - 07/04/2024 2:00 PM EMILY Montiel - 06/16/2024 11:10 AM EST Note Date & Type Note Facility 08-10-2024 History of Presen t illness Narrative Reason for Appointment: Patient ID: Cyndie Blair is a 34 y.o. female who presents for Routine Visit Patient presents today for Return OB appointment. MEDICATIONS Current Outpatient Medications Medication Instructions clobetasol (Temovate) 0.05 % external solution Apply to scalp sparingly once a day as needed for itching. Hold when clear or asymptomatic/30 day supply methadone (Methadose) 40 MG dispersible tablet Every 24 hours ALLERGIES Allergies Allergen Reactions Naproxen Other Reaction(s): Unknown, Unknown cause, Unknown Reaction Trazodone Rash and GI intolerance Other Reaction(s): Unknown PROBLEMS Active Ambulatory Problems Diagnosis Date Noted No Active Ambulatory Problems Resolved Ambulatory Problems Diagnosis Date Noted No Resolved Ambulatory Problems No Additional Past Medical History HISTORY PAST MEDICAL HISTORY SOCIAL HISTORY No past medical history on file. Social History Tobacco Use Smoking status: Never Smokeless tobacco: Never Vaping Use Vaping status: Never Used Substance Use Topics Alcohol use: Not Currently Comment: Caffeine intake: 1-2 cups coffee/weekly Drug use: Never FAMILY HISTORY Family History Problem Relation Name Age of Onset Hypertension Maternal Grandfather SURGICAL HISTORY Past Surgical History: Procedure Laterality Date VAGINAL DELIVERY x3 REVIEW OF SYSTEMS Review of Systems: Review of Systems Constitutional: Negative. HENT: Negative. Eyes: Negative. Respiratory: Negative. Cardiovascular: Negative. Gastrointestinal: Negative. Genitourinary: Negative. Musculoskeletal: Negative. Skin: Negative. Neurological: Negative. All other systems reviewed and are negative. Hematological: Negative. Endocrine: Negative. Allergic/Immunologic: Negative. OBJECTIVE Objective: Physical Exam Constitutional: Appearance: Normal appearance. She is normal weight. HENT: Head: Normocephalic. Cardiovascular: Rate and Rhythm: Normal rate. Pulses: Normal pulses. Pulmonary: Effort: Pulmonary effort is normal. Breath sounds: Normal breath sounds. Abdominal: Palpations: Abdomen is soft. Musculoskeletal: General: Normal range of motion. Neurological: General: No focal deficit present. Mental Status: She is alert and oriented to person, place, and time. Psychiatric: Mood and Affect: Mood normal. Behavior: Behavior normal. Thought Content: Thought content normal. Judgment: Judgment normal. Vitals and nursing note reviewed. Vitals: Estimated body mass index is 27.26 kg/m as calculated from the following: Height as of 22: 5' 5 . Weight as of this encounter: 163 lb 12.8 oz. BP: 122/80 Patient's last menstrual period was 11/15/2023. ASSESSMENT & PLAN ICD-10-CM 1. Third trimester Z34.93 POCT urinalysis dipstick manually resulted 2. 38 weeks gestation of Z3A.38 Return OB: Patient presents today for a routine obstetrics appointment. Patient is currently 38w3d . Patient states she is doing well but has complaints of being tired due to current . Patient has verbalizes frequent movement. labor precautions was discussed/given and patient was instructed to perform kick counts three times a day. Orders Placed This Encounter Procedures POCT urinalysis dipstick manually resulted Follow Up: Patient is to return to office in 1 week for routine OB appointment. Documented by EMILY Naranjo on behalf of: EMILY Naranjo documented in this encounter [facility] 08-03-2024 History of Presen t illness Narrative Reason for Appointment: Patient ID: Cyndie Blair is a 34 y.o. female who presents for Routine Visit Patient presents today for Return OB appointment. MEDICATIONS Current Outpatient Medications Medication Instructions clobetasol (Temovate) 0.05 % external solution Apply to scalp sparingly once a day as needed for itching. Hold when clear or asymptomatic/30 day supply methadone (Methadose) 40 MG dispersible tablet Every 24 hours ALLERGIES Allergies Allergen Reactions Naproxen Other Reaction(s): Unknown, Unknown cause, Unknown Reaction Trazodone Rash and GI intolerance Other Reaction(s): Unknown PROBLEMS Active Ambulatory Problems Diagnosis Date Noted No Active Ambulatory Problems Resolved Ambulatory Problems Diagnosis Date Noted No Resolved Ambulatory Problems No Additional Past Medical History HISTORY PAST MEDICAL HISTORY SOCIAL HISTORY History reviewed. No pertinent past medical history. Social History Tobacco Use Smoking status: Never Smokeless tobacco: Never Vaping Use Vaping status: Never Used Substance Use Topics Alcohol use: Not Currently Comment: Caffeine intake: 1-2 cups coffee/weekly Drug use: Never FAMILY HISTORY Family History Problem Relation Name Age of Onset Hypertension Maternal Grandfather SURGICAL HISTORY Past Surgical History: Procedure Laterality Date VAGINAL DELIVERY x3 REVIEW OF SYSTEMS Review of Systems: Review of Systems Constitutional: Negative. HENT: Negative. Eyes: Negative. Respiratory: Negative. Cardiovascular: Negative. Gastrointestinal: Negative. Genitourinary: Negative. Musculoskeletal: Negative. Skin: Negative. Neurological: Negative. All other systems reviewed and are negative. Hematological: Negative. Endocrine: Negative. Allergic/Immunologic: Negative. OBJECTIVE Objective: Physical Exam Constitutional: Appearance: Normal appearance. She is normal weight. HENT: Head: Normocephalic. Cardiovascular: Rate and Rhythm: Normal rate. Pulses: Normal pulses. Pulmonary: Effort: Pulmonary effort is normal. Breath sounds: Normal breath sounds. Abdominal: Palpations: Abdomen is soft. Musculoskeletal: General: Normal range of motion. Neurological: General: No focal deficit present. Mental Status: She is alert and oriented to person, place, and time. Psychiatric: Mood and Affect: Mood normal. Behavior: Behavior normal. Thought Content: Thought content normal. Judgment: Judgment normal. Vitals and nursing note reviewed. Vitals: Estimated body mass index is 27.19 kg/m as calculated from the following: Height as of 01/09/22: 5' 5 . Weight as of this encounter: 163 lb 6.4 oz. BP: 102/68 Patient's last menstrual period was 11/15/2023. ASSESSMENT & PLAN ICD-10-CM 1. Third trimester Z34.93 POCT urinalysis dipstick manually resulted 2. 37 weeks gestation of Z3A.37 POCT urinalysis dipstick manually resulted 3. Breech presentation, single or unspecified fetus O32.1XX0 4. Request for sterilization Z30.2 Patient presents today for a routine obstetrics appointment. Patient is currently 37w3d . Patient states she is doing well but has complaints of being tired due to current . Patient has verbalizes frequent movement. labor precautions was discussed/given and patient was instructed to perform kick counts three times a day. Patient has expressed the desire sterilization in the past. Patient is currently breech and will require to undergo a primary for delivery, during the time of her surgery patient desires sterilization to be performed. I have discussed with the patient in detail that a salpingectomy is considered to be permanent and patient verbalized understanding and that she does not desire anymore children. Patient will undergo a primary section and bilateral salpingectomy on 08/16/[address] Fuchs. Surgical consents were signed, partners instructions were given, mmc was reviewed, and patient is to proceed to [facility] OR on her scheduled day. Orders Placed This Encounter Procedures POCT urinalysis dipstick manually resulted Follow Up: Patient is to return in 1 week for routine OB appointment. Documented by: EMILY Naranjo documented in this encounter [facility] 07-20-2024 History of Presen t illness Narrative Reason for Appointment: Patient ID: Cyndie Blair is a 34 y.o. female who presents for No chief complaint on file. Patient presents today for Return OB appointment. MEDICATIONS Current Outpatient Medications Medication Instructions clobetasol (Temovate) 0.05 % external solution Apply to scalp sparingly once a day as needed for itching. Hold when clear or asymptomatic/30 day supply methadone (Methadose) 40 MG dispersible tablet Every 24 hours ALLERGIES Allergies Allergen Reactions Naproxen Other Reaction(s): Unknown, Unknown cause, Unknown Reaction Trazodone Rash and GI intolerance Other Reaction(s): Unknown PROBLEMS Active Ambulatory Problems Diagnosis Date Noted No Active Ambulatory Problems Resolved Ambulatory Problems Diagnosis Date Noted No Resolved Ambulatory Problems No Additional Past Medical History HISTORY PAST MEDICAL HISTORY SOCIAL HISTORY History reviewed. No pertinent past medical history. Social History Tobacco Use Smoking status: Never Smokeless tobacco: Never Vaping Use Vaping status: Never Used Substance Use Topics Alcohol use: Not Currently Comment: Caffeine intake: 1-2 cups coffee/weekly Drug use: Never FAMILY HISTORY Family History Problem Relation Name Age of Onset Hypertension Maternal Grandfather SURGICAL HISTORY Past Surgical History: Procedure Laterality Date VAGINAL DELIVERY x3 REVIEW OF SYSTEMS Review of Systems: Review of Systems Constitutional: Negative. HENT: Negative. Eyes: Negative. Respiratory: Negative. Cardiovascular: Negative. Gastrointestinal: Negative. Genitourinary: Negative. Musculoskeletal: Negative. Skin: Negative. Neurological: Negative. All other systems reviewed and are negative. Hematological: Negative. Endocrine: Negative. Allergic/Immunologic: Negative. OBJECTIVE Objective: Physical Exam Constitutional: Appearance: Normal appearance. She is normal weight. HENT: Head: Normocephalic. Cardiovascular: Rate and Rhythm: Normal rate. Pulses: Normal pulses. Pulmonary: Effort: Pulmonary effort is normal. Breath sounds: Normal breath sounds. Abdominal: Palpations: Abdomen is soft. Musculoskeletal: General: Normal range of motion. Neurological: General: No focal deficit present. Mental Status: She is alert and oriented to person, place, and time. Psychiatric: Mood and Affect: Mood normal. Behavior: Behavior normal. Thought Content: Thought content normal. Judgment: Judgment normal. Vitals and nursing note reviewed. Vitals: Estimated body mass index is 26.29 kg/m as calculated from the following: Height as of 01/09/22: 5' 5 . Weight as of this encounter: 158 lb. BP: 100/60 Patient's last menstrual period was 11/15/2023. ASSESSMENT & PLAN ICD-10-CM 1. 35 weeks gestation of Z3A.35 POCT urinalysis dipstick manually resulted 2. Third trimester Z34.93 POCT urinalysis dipstick manually resulted Return OB: Patient presents today for a routine obstetrics appointment. Patient is currently 35w3d . Patient states she is doing well but has complaints of being tired due to current . Patient has verbalizes frequent movement. labor precautions was discussed/given and patient was instructed to perform kick counts three times a day. Patient continues to be breech. Pt will discuss options at next visit Orders Placed This Encounter Procedures POCT urinalysis dipstick manually resulted Follow Up: Patient is to return to office in 1 week for routine OB appointment. Documented by EMILY Naranjo on behalf of: EMILY Naranjo documented in this encounter [facility] 07-14-2024 Radiology Diagnostic study note [facility] Main [place] [address] [place] [address] Ultrasound Report Signed Patient: Cyndie Blair MR#: [id number] : 1990 Acct:[id number] Age/Sex: 34 / F ADM Date: 5 Loc: UL Room: Type: [facility] Attending Dr: Shea Og PA-C Ordering Provider: Shea GARBER Date of Service: 07/14/24 US/US OB limited: Z34.93,F11.90 Copies to: Shea GARBER~ US OB limited 07/14/2024 2:05 PM SIGNS AND SYMPTOMS: Check growth COMPARISON: None. TECHNIQUE: Limited pelvic ultrasound using transvesical sonography. FINDINGS: An intrauterine is identified. The visualized fetus has an estimated gestational age of 4 weeks and 2 days. A heart rate is identified at 161 bpm. A normal amount of amniotic fluid is present. There is no evidence for placenta previa or subchorionic hemorrhage. Estimated weight is 5 lbs. 4 oz. Pelvic survey reveals no gross abnormalities. The cervix measures 3.3 cm in length. US/US OB limited IMPRESSION: Single live IUP with an estimated gestational age of 34w2d weeks/days with an estimated date of delivery of 08/23/2024 and normal heart rate. Estimated weight is 5 lbs. 4 oz. Impression dictated by: David Way M.D.07/14/2024 9:14 PM Dictation Location: [facility] Tech: Maria C Colvin Transcribed By: AHMET 07/14/242113 Dictated By: David Way II, MD 07/14/242110 Signed By: 07/14/242113 [facility] Work Phone: 07-04-2024 History of Presen t illness Narrative Reason for Appointment: Patient ID: Cyndie Blair is a 34 y.o. female who presents for Routine Visit Patient presents today for Return OB appointment. MEDICATIONS Current Outpatient Medications Medication Instructions clobetasol (Temovate) 0.05 % external solution Apply to scalp sparingly once a day as needed for itching. Hold when clear or asymptomatic/30 day supply methadone (Methadose) 40 MG dispersible tablet Every 24 hours ALLERGIES Allergies Allergen Reactions Naproxen Other Reaction(s): Unknown, Unknown cause, Unknown Reaction Trazodone Rash and GI intolerance Other Reaction(s): Unknown PROBLEMS Active Ambulatory Problems Diagnosis Date Noted No Active Ambulatory Problems Resolved Ambulatory Problems Diagnosis Date Noted No Resolved Ambulatory Problems No Additional Past Medical History HISTORY PAST MEDICAL HISTORY SOCIAL HISTORY No past medical history on file. Social History Tobacco Use Smoking status: Never Smokeless tobacco: Never Vaping Use Vaping status: Never Used Substance Use Topics Alcohol use: Not Currently Comment: Caffeine intake: 1-2 cups coffee/weekly Drug use: Never FAMILY HISTORY Family History Problem Relation Name Age of Onset Hypertension Maternal Grandfather SURGICAL HISTORY Past Surgical History: Procedure Laterality Date VAGINAL DELIVERY x3 REVIEW OF SYSTEMS Review of Systems: Review of Systems Constitutional: Negative. HENT: Negative. Eyes: Negative. Respiratory: Negative. Cardiovascular: Negative. Gastrointestinal: Negative. Genitourinary: Negative. Musculoskeletal: Negative. Skin: Negative. Neurological: Negative. All other systems reviewed and are negative. Hematological: Negative. Endocrine: Negative. Allergic/Immunologic: Negative. OBJECTIVE Objective: Physical Exam Constitutional: Appearance: Normal appearance. She is normal weight. HENT: Head: Normocephalic. Cardiovascular: Rate and Rhythm: Normal rate. Pulses: Normal pulses. Pulmonary: Effort: Pulmonary effort is normal. Breath sounds: Normal breath sounds. Abdominal: Palpations: Abdomen is soft. Musculoskeletal: General: Normal range of motion. Neurological: General: No focal deficit present. Mental Status: She is alert and oriented to person, place, and time. Psychiatric: Mood and Affect: Mood normal. Behavior: Behavior normal. Thought Content: Thought content normal. Judgment: Judgment normal. Vitals and nursing note reviewed. Vitals: Estimated body mass index is 25.79 kg/m as calculated from the following: Height as of 01/09/22: 5' 5 . Weight as of this encounter: 155 lb. BP: 122/72 Patient's last menstrual period was 11/15/2023. ASSESSMENT & PLAN ICD-10-CM 1. Third trimester Z34.93 POCT urinalysis dipstick manually resulted 2. 33 weeks gestation of Z3A.33 3. 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 Patient is currently 33w1d . Patient states she is doing well but has complaints of being tired due to current . Patient has verbalizes frequent movement. labor precautions was discussed/given and patient was instructed to perform kick counts three times a day. Pt was seen in the ER on Thursday due to pain with . Pt states she believes that the baby is sitting sideways and every time baby moves, it causes pain for patient. Orders Placed This Encounter Procedures US biophysical profile w non stress test POCT urinalysis dipstick manually resulted Pt was given NST/BPP order along with the growth US order to have done at [facility]. Both are standing orders. Pt was advised to call the hospital to schedule the NST/BPP due to pt being 33 weeks today. Follow Up: Patient is to return to office in 2 week for routine OB appointment. Documented by Sofy Saab MA on behalf of: EMILY Naranjo documented in this encounter [facility] 06-16-2024 History of Presen t illness Narrative Reason for Appointment: Patient ID: Cyndie Blair is a 33 y.o. female who presents for No chief complaint on file. Patient presents today for Return OB appointment. MEDICATIONS Current Outpatient Medications Medication Instructions methadone (Methadose) 40 MG dispersible tablet Every 24 hours ALLERGIES Allergies Allergen Reactions Naproxen Other Reaction(s): Unknown, Unknown cause, Unknown Reaction Trazodone Rash and GI intolerance Other Reaction(s): Unknown PROBLEMS Active Ambulatory Problems Diagnosis Date Noted No Active Ambulatory Problems Resolved Ambulatory Problems Diagnosis Date Noted No Resolved Ambulatory Problems No Additional Past Medical History HISTORY PAST MEDICAL HISTORY SOCIAL HISTORY History reviewed. No pertinent past medical history. Social History Tobacco Use Smoking status: Never Smokeless tobacco: Never Vaping Use Vaping status: Never Used Substance Use Topics Alcohol use: Not Currently Comment: Caffeine intake: 1-2 cups coffee/weekly Drug use: Never FAMILY HISTORY Family History Problem Relation Name Age of Onset Hypertension Maternal Grandfather SURGICAL HISTORY Past Surgical History: Procedure Laterality Date VAGINAL DELIVERY x3 REVIEW OF SYSTEMS Review of Systems: Review of Systems Constitutional: Negative. HENT: Negative. Eyes: Negative. Respiratory: Negative. Cardiovascular: Negative. Gastrointestinal: Negative. Genitourinary: Negative. Musculoskeletal: Negative. Skin: Negative. Neurological: Negative. All other systems reviewed and are negative. Hematological: Negative. Endocrine: Negative. Allergic/Immunologic: Negative. OBJECTIVE Objective: Physical Exam Constitutional: Appearance: Normal appearance. She is normal weight. HENT: Head: Normocephalic. Cardiovascular: Rate and Rhythm: Normal rate. Pulses: Normal pulses. Pulmonary: Effort: Pulmonary effort is normal. Breath sounds: Normal breath sounds. Abdominal: Palpations: Abdomen is soft. Musculoskeletal: General: Normal range of motion. Neurological: General: No focal deficit present. Mental Status: She is alert and oriented to person, place, and time. Psychiatric: Mood and Affect: Mood normal. Behavior: Behavior normal. Thought Content: Thought content normal. Judgment: Judgment normal. Vitals and nursing note reviewed. Vitals: Estimated body mass index is 24.81 kg/m as calculated from the following: Height as of 01/09/22: 5' 5 . Weight as of this encounter: 149 lb 1.9 oz. BP: 120/70 Patient's last menstrual period was 11/15/2023. ASSESSMENT & PLAN ICD-10-CM 1. 30 weeks gestation of Z3A.30 POCT urinalysis dipstick manually resulted 2. Third trimester Z34.93 POCT urinalysis dipstick manually resulted Return OB: Patient presents today for a routine obstetrics appointment. Patient is currently 30w4d . Patient states she is doing well but has complaints of being tired due to current . Patient has verbalizes frequent movement. labor precautions was discussed/given and patient was instructed to perform kick counts three times a day. Orders Placed This Encounter Procedures POCT urinalysis dipstick manually resulted Follow Up: Patient is to return to office in 2 week for routine OB appointment. Documented by EMILY Naranjo on behalf of: EMILY Naranjo documented in this encounter [facility] 06-02-2024 History of Presen t illness Narrative Reason for Appointment: Patient ID: Cyndie Blair is a 33 y.o. female who presents for Routine Visit Patient presents today for Return OB appointment. MEDICATIONS Current Outpatient Medications Medication Instructions cefuroxime (Ceftin) 250 MG tablet Take 1 tablet, by mouth, once daily, 30 days clobetasol (Temovate) 0.05 % external solution Apply to scalp, once a day when flared, do not use one the face, groin, or underarms, 30 day supply methadone (Methadose) 40 MG dispersible tablet Every 24 hours multivitamin () 27-0.8 MG tablet 1 tablet, Oral, Daily MV & Min w/FA-DHA ( Gummies) 0.18-25 MG chewable tablet 1 tablet, Oral, Daily ALLERGIES Allergies Allergen Reactions Naproxen Other Reaction(s): Unknown, Unknown cause, Unknown Reaction Trazodone Rash and GI intolerance Other Reaction(s): Unknown PROBLEMS Active Ambulatory Problems Diagnosis Date Noted No Active Ambulatory Problems Resolved Ambulatory Problems Diagnosis Date Noted No Resolved Ambulatory Problems No Additional Past Medical History HISTORY PAST MEDICAL HISTORY SOCIAL HISTORY No past medical history on file. Social History Tobacco Use Smoking status: Never Smokeless tobacco: Never Vaping Use Vaping status: Never Used Substance Use Topics Alcohol use: Not Currently Comment: Caffeine intake: 1-2 cups coffee/weekly Drug use: Never FAMILY HISTORY Family History Problem Relation Name Age of Onset Hypertension Maternal Grandfather SURGICAL HISTORY Past Surgical History: Procedure Laterality Date VAGINAL DELIVERY x3 REVIEW OF SYSTEMS Review of Systems: Review of Systems Constitutional: Negative. HENT: Negative. Eyes: Negative. Respiratory: Negative. Cardiovascular: Negative. Gastrointestinal: Negative. Genitourinary: Negative. Musculoskeletal: Negative. Skin: Negative. Neurological: Negative. All other systems reviewed and are negative. Hematological: Negative. Endocrine: Negative. Allergic/Immunologic: Negative. OBJECTIVE Objective: Physical Exam Constitutional: Appearance: Normal appearance. She is well-developed. Cardiovascular: Rate and Rhythm: Normal rate and regular rhythm. Pulmonary: Effort: Pulmonary effort is normal. Breath sounds: Normal breath sounds. Abdominal: General: Bowel sounds are normal. There is no distension. Palpations: Abdomen is soft. Tenderness: There is no abdominal tenderness. There is no guarding or rebound. Musculoskeletal: General: No swelling. Normal range of motion. Right lower leg: No edema. Left lower leg: No edema. Neurological: Mental Status: She is alert and oriented to person, place, and time. Skin: General: Skin is warm and dry. Psychiatric: Mood and Affect: Mood normal. Behavior: Behavior normal. Vitals and nursing note reviewed. Exam conducted with a auto painter present. Vitals: Estimated body mass index is 23.13 kg/m as calculated from the following: Height as of 01/09/22: 5' 5 . Weight as of 05/03/24: 139 lb. BP: Patient's last menstrual period was 11/15/2023. ASSESSMENT & PLAN ICD-10-CM 1. Third trimester Z34.93 POCT urinalysis dipstick manually resulted US OB SCAN FOR GROWTH 2. 28 weeks gestation of Z3A.28 3. 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 Patient is currently 28w4d . Patient states she is doing well but has complaints of being tired due to current . Patient has verbalizes frequent movement. labor precautions was discussed/given and patient was instructed to perform kick counts three times a day. Pt was given Growth US to start @ 32 weeks gestation. Pt to call [facility] and schedule. Pt was advised to get the 1 hour glucose done as soon as she can along w/her CBC along w/Hepatitis C order. Pt verbally understood and stated she will be going to a hospital in [place] to have her Growth US along w/her lab work. Advised pt to make sure they fax our office back the results please. Orders Placed This Encounter Procedures US OB SCAN FOR GROWTH POCT urinalysis dipstick manually resulted Follow Up: Patient is to return to office in 2 week for routine OB appointment. Documented by Sofy Saab MA on behalf of: EMILY Naranjo documented in this encounter [facility] 05-03-2024 History of Presen t illness Narrative Reason for Appointment: Patient ID: Cyndie Blair is a 33 y.o. female who presents for Routine Visit Patient presents today for Return OB appointment. MEDICATIONS Current Outpatient Medications Medication Instructions cefuroxime (Ceftin) 250 MG tablet Take 1 tablet, by mouth, once daily, 30 days clobetasol (Temovate) 0.05 % external solution Apply to scalp, once a day when flared, do not use one the face, groin, or underarms, 30 day supply methadone (Methadose) 40 MG dispersible tablet Every 24 hours multivitamin () 27-0.8 MG tablet 1 tablet, Oral, Daily ALLERGIES Allergies Allergen Reactions Naproxen Other Reaction(s): Unknown, Unknown cause, Unknown Reaction Trazodone Rash and GI intolerance Other Reaction(s): Unknown PROBLEMS Active Ambulatory Problems Diagnosis Date Noted No Active Ambulatory Problems Resolved Ambulatory Problems Diagnosis Date Noted No Resolved Ambulatory Problems No Additional Past Medical History HISTORY PAST MEDICAL HISTORY SOCIAL HISTORY No past medical history on file. Social History Tobacco Use Smoking status: Never Smokeless tobacco: Never Vaping Use Vaping status: Never Used Substance Use Topics Alcohol use: Not Currently Comment: Caffeine intake: 1-2 cups coffee/weekly Drug use: Never FAMILY HISTORY Family History Problem Relation Name Age of Onset Hypertension Maternal Grandfather SURGICAL HISTORY Past Surgical History: Procedure Laterality Date VAGINAL DELIVERY x3 REVIEW OF SYSTEMS Review of Systems: Review of Systems Constitutional: Negative. HENT: Negative. Eyes: Negative. Respiratory: Negative. Cardiovascular: Negative. Gastrointestinal: Negative. Genitourinary: Negative. Musculoskeletal: Negative. Skin: Negative. Neurological: Negative. All other systems reviewed and are negative. Hematological: Negative. Endocrine: Negative. Allergic/Immunologic: Negative. OBJECTIVE Objective: Physical Exam Constitutional: Appearance: Normal appearance. She is well-developed. Cardiovascular: Rate and Rhythm: Normal rate and regular rhythm. Pulmonary: Effort: Pulmonary effort is normal. Breath sounds: Normal breath sounds. Abdominal: General: Bowel sounds are normal. There is no distension. Palpations: Abdomen is soft. Tenderness: There is no abdominal tenderness. There is no guarding or rebound. Musculoskeletal: General: No swelling. Normal range of motion. Right lower leg: No edema. Left lower leg: No edema. Neurological: Mental Status: She is alert and oriented to person, place, and time. Skin: General: Skin is warm and dry. Psychiatric: Mood and Affect: Mood normal. Behavior: Behavior normal. Vitals and nursing note reviewed. Exam conducted with a auto painter present. Vitals: Estimated body mass index is 23.13 kg/m as calculated from the following: Height as of 01/09/22: 5' 5 . Weight as of this encounter: 139 lb. BP: 110/68 Patient's last menstrual period was 11/15/2023. ASSESSMENT & PLAN ICD-10-CM 1. Diabetes mellitus screening Z13.1 CBC Glucose tolerance, 1 hour 2. Missed menses N92.6 RPR Hemoglobin A1c Hepatitis C antibody 3. 24 weeks gestation of Z3A.24 Urine dip Return OB: Patient presents today for a routine obstetrics appointment. Patient is currently 24w2d . Patient states she is doing well but has complaints of being tired due to current . Patient has verbalizes frequent movement. labor precautions was discussed/given. Pt to start NST/BPP at 36 weeks. Pt given glucola with instructions. Orders Placed This Encounter Procedures RPR Hemoglobin A1c Hepatitis C antibody CBC Glucose tolerance, 1 hour Urine dip Follow Up: Patient is to return to office in 4 week for routine OB appointment. Documented by Glo Arriaga LPN on behalf of: Alfredo Fuchs DO documented in this encounter [facility] 03-04-2024 History of Presen t illness Narrative Follow up: Diagnosis: Guttate Psoriasis Location: generalized Last visit: 12/23/23 Status: improved, not clear Current treatment: Triamcinolone 0.1% cream - has not been using, ineffective. Sun exposure most effective. Has bee using Clobetasol 0.05% solution on the scalp -prescribed years ago- effective- wants refills Patient found out she was after last visit, 15 weeks Acne Location: face Duration: months Severity: moderate Nature of acne: pimples, nodules Modifying factors: worse in Current treatment: none All pertinent medical history, medications, and allergies were reviewed. General Exam: alert , oriented to person, place, and time , normal affect, well appearing Unaccompanied A focused exam completed based on patient reported problems, see below: 1. Guttate psoriasis (CMS/HCC) Scattered, erythematous scaly macules in a drop like patterns- improved since last visit. Counseled on the occurrence of guttate psoriasis in . Discussed that this subtype of psoriasis is most often transient. Patient reassured symptoms should improve as hormones stabilize. Discussed that this is one of the only instances in which a small amount of sun/UV rays on the skin can be beneficial. Patient has found that being in the sun significantly helps the flares. Provided samples of Deremeleve lotion to help with itch. Discussed that she should try and avoid the topical steroids while if possible. 2. Psoriasis vulgaris (CMS/HCC) Scalp Well-marginated erythematous patches with silvery scale, stable with treatment. (Patient has history of plaque psoriasis in scalp prior to guttate psoriasis). Not flared today. The patient was informed that psoriasis is a chronic condition that can be controlled but not cured. Continue Clobetasol 0.05% solution once daily as needed for flares in the scalp, set aside when clear. Instructed to contact office if psoriasis worsens or fails to improve despite treatment. clobetasol (Temovate) 0.05 % external solution - Scalp Apply to scalp, once a day when flared, do not use one the face, groin, or underarms, 30 day supply 3. Acne vulgaris Head - Anterior (Face) Scattered comedones and inflammatory pustules. The patient was counseled that it may take up to 2-3 months to notice significant improvement of the acne. Patient informed treatment is limited due to . The use of non-comedogenic cleansers and moisturizers was recommended. Acne treatment plan given today. Will start Ceftin 250 mg once daily with food to avoid stomach upset. Instructed her to notify [facility] physician that she is starting this medicine. Notify office with any adverse effects. cefuroxime (Ceftin) 250 MG tablet - Head - Anterior (Face) Take 1 tablet, by mouth, once daily, 30 days Next Visit: 2 months documented in this encounter [facility] 03-01-2024 History of Presen t illness Narrative Discussed pre- lab results. Pap-smear, Gc/Chl testing done. Discussed since she is on Methadone, I won't be able to care for her . Recommended patient to schedule appointment with Dr. Cruz or prescribing provider for her Methadone (Dr. Merchant). Patient voiced understanding documented in this encounter [facility] 12-16-2023 [facility] Discharg e instructions Additional Instructions Keep your scheduled appointment with dermatology on Thursday. [facility] Work Phone: 09-08-2022 Hospital Discharg e instructions Patient Education 09/08/2022 15:24:54 Muscle Strain Muscle Strain A muscle strain is an injury that occurs when a muscle is stretched beyond its normal length. Usually, a small number of muscle fibers are torn when this happens. There are three types of muscle strains. First-degree strains have the least amount of muscle fiber tearing and the least amount of pain. Second-degree and third-degree strains have more tearing and pain. Usually, recovery from muscle strain takes 1 2 weeks. Complete healing normally takes 5 6 weeks. What are the causes? This condition is caused when a sudden, violent force is placed on a muscle and stretches it too far. This may occur with a fall, lifting, or sports. What increases the risk? This condition is more likely to develop in athletes and people who are physically active. What are the signs or symptoms? Symptoms of this condition include: Pain. Bruising. Swelling. Trouble using the muscle. How is this diagnosed? This condition is diagnosed based on a physical exam and your medical history. Tests may also be done, including an X-ray, ultrasound, or MRI. How is this treated? This condition is initially treated with RODRIGUES therapy. This therapy involves: Protecting the muscle from being injured again. Resting the injured muscle. Icing the injured muscle. Applying pressure (compression) to the injured muscle. This may be done with a splint or elastic bandage. Raising (elevating) the injured muscle. Your health care provider may also recommend medicine for pain. Follow these instructions at home: If you have a splint: Wear the splint as told by your health care provider. Remove it only as told by your health care provider. Loosen the splint if your fingers or toes tingle, become numb, or turn cold and blue. Keep the splint clean. If the splint is not waterproof: ?Do not let it get wet. ?Cover it with a watertight covering when you take a bath or a shower. Managing pain, stiffness, and swelling If directed, put ice on the injured area. ?If you have a removable splint, remove it as told by your health care provider. ?Put ice in a plastic bag. ?Place a towel between your skin and the bag. ?Leave the ice on for 20 minutes, 2 3 times a day. Move your fingers or toes often to avoid stiffness and to lessen swelling. Raise (elevate) the injured area above the level of your heart while you are sitting or lying down. Wear an elastic bandage as told by your health care provider. Make sure that it is not too tight. General instructions Take sjzn-yay-qxnvwab and prescription medicines only as told by your health care provider. Restrict your activity and rest the injured muscle as told by your health care provider. Gentle movements may be allowed. If physical therapy was prescribed, do exercises as told by your health care provider. Do not put pressure on any part of the splint until it is fully hardened. This may take several hours. Do not use any products that contain nicotine or tobacco, such as cigarettes and e-cigarettes. These can delay bone healing. If you need help quitting, ask your health care provider. Ask your health care provider when it is safe to drive if you have a splint. Keep all follow-up visits as told by your health care provider. This is important. How is this prevented? Warm up before exercising. This helps to prevent future muscle strains. Contact a health care provider if: You have more pain or swelling in the injured area. Get help right away if: You have numbness or tingling or lose a lot of strength in the injured area. Summary A muscle strain is an injury that occurs when a muscle is stretched beyond its normal length. This condition is caused when a sudden, violent force is placed on a muscle and stretches it too far. This condition is initially treated with RODRIGUES therapy, which involves protecting, resting, icing, compressing, and elevating. Gentle movements may be allowed. If physical therapy was prescribed, do exercises as told by your health care provider. This information is not intended to replace advice given to you by your health care provider. Make sure you discuss any questions you have with your health care provider. Document Released: 06/29/2006 Document Revised: 06/11/2018 Document Reviewed: 08/05/2017 [employer] Patient Education 2020 [employer]. Follow Up Care 09/08/2022 14:06:22 With:BROOK DUMONT Address: [facility] NITESH ESPINOZA[address] [address] Business (1) When:09/11/2022 15:21:59 [facility] 08-07-2022 Evaluation + Plan note Extrac dano from: Title:ED Note Author:Bakari Jarquin DO Date :08/07/22 Back pain, thoracic (M54.6: Pain in thoracic spine) Orders: lidocaine topical, 1 patch(es), Patch, TransDermal, Once, Stop date 08/07/22 3:36:00 EST, STAT, Start date 08/07/22 3:36:00 EST lidocaine topical, 1 patch(es), Topical, Daily, 7 EA, Refill(s) 0, apply 12 hours on and 12 hours off daily, [facility] #[id number], 164, cm, 08/07/22 3:28:00 EST, Height/Length Dosing, 53, kg, 08/07/22 3:28:00 EST, Weight Dosing methocarbamol, 500 mg = 1 tab(s), Oral, TID, X 3 day(s), # 9 tab(s), Refills(s) 0, Pharmacy: [facility] #[id number], 164, cm, 08/07/22 3:28:00 EST, Height/Length Dosing, 53, kg, 08/07/22 3:28:00 EST, Weight Dosing methocarbamol, 500 mg = 1 tab(s), Tab, Oral, Once, Stop date 08/07/22 4:04:00 EST, STAT, Start date 08/07/22 4:04:00 EST, 08/07/22 4:04:00 EST predniSONE, 50 mg = 1 tab(s), Oral, Daily, X 5 day(s), # 5 tab(s), Refills(s) 0, Pharmacy: [facility] #[id number], 164, cm, 08/07/22 3:28:00 EST, Height/Length Dosing, 53, kg, 08/07/22 3:28:00 EST, Weight Dosing predniSONE, 60 mg = 3 tab(s), Tab, Oral, Once, Stop date 08/07/22 3:36:00 EST, STAT, Start date 08/07/22 3:36:00 EST, 08/07/22 3:36:00 EST XR Spine Thoracic 3 Views Future Scheduled Tests Laboratory* HgbA1c 04/02/22 * TSH With T4fr Reflex 04/02/22 * CBC w/ Auto Diff 04/02/22 * Comprehensive Metabolic Panel 04/02/22 [facility]01-26-2023 Hospital Discharge instructions Patient Education 08/07/2022 04:15:47 Thoracic Strain, Ahgg-fp-Ecmt Thoracic Strain A thoracic strain is an injury to the muscles or tendons that attach to the upper back. Tendons aretissues that connect muscle to bone. This injury is sometimes called a mid-back strain. A strain can be mild or very bad. A mild strain may take only 1 2 weeks to heal. A very bad strain involves torn muscles or tendons, so it may take 6 8 weeks to heal. What are the causes? This condition may be caused by: A fall or a hit to the body. Twisting or stretching the back too far. This may happen when doing activities that require a lot of energy, such as lifting heavy objects. In some cases, the cause may not be known. What increases the risk? This injury is more common in: Athletes. People who are very overweight (obese). What are the signs or symptoms? Pain in the middle back, especially with movement. This is the main symptom. Stiffness or limited range of motion. Sudden muscle tightening (spasms). How is this treated? This condition may be treated with: Resting the injured area. Putting heat and cold on the injured area. Medicines for pain and inflammation, such as NSAIDs. Prescription medicine for pain or to relax the muscles. These may be used for a short time if needed. Physical therapy. This will involve doing exercises to stretch and strengthen the middle back. Follow these instructions at home: Managing pain, stiffness, and swelling If told, put ice on the injured area. ?Put ice in a plastic bag. ?Place a towel between your skin and the bag. ?Leave the ice on for 20 minutes, 2 3 times a day. If told, put heat on the affected area. Do this as often as told by your doctor. Use the heat source that your doctor recommends, such as a moist heat pack or a heating pad. ?Place a towel between your skin and the heat source. ?Leave the heat on for 20 30 minutes. ?Remove the heat if your skin turns bright red. This is very important if you are unable to feel pain, heat, or cold. You may have a greater risk of getting burned. Activity Rest and return to your normal activities as told by your doctor. Ask your doctor what activities are safe for you. Do exercises as told by your doctor. Medicines Take xfmm-mmf-xcnzuqr and prescription medicines only as told by your doctor. Ask your doctor if the medicine prescribed to you: ?Requires you to avoid driving or using heavy machinery. ?Can cause trouble pooping (constipation). You may need to take steps to prevent or treat trouble pooping: ?Drink enough fluid to keep your pee (urine) pale yellow. ?Take ckun-bue-mmkeqkr or prescription medicines. ?Eat foods that are high in fiber. These include beans, whole grains, and fresh fruits and vegetables. ?Limit foods that are high in fat and processed sugars. These include fried or sweet foods. Injury prevention To prevent a future mid-back injury: Always warm up before physical activity or sports. Cool down and stretch after being active. Use correct form when playing sports and lifting heavy objects. Bend your knees before you lift heavy objects. Use good posture when sitting and standing. Stay physically fit and maintain a healthy weight. ?Do at least 150 minutes of moderate-intensity exercise each week, such as brisk walking or water aerobics. ?Do strength exercises at least 2 times each week. General instructions Do not use any products that contain nicotine or tobacco. These products include cigarettes, e-cigarettes, and chewing tobacco. If you need help quitting, ask your doctor. Keep all follow-up visits as told by your doctor. This is important. Contact a doctor if: Your pain is not helped by medicine. Your pain or stiffness is getting worse. You have pain or stiffness in your neck or lower back. Get help right away if you: Have shortness of breath. Have chest pain. Have weakness or loss of feeling (numbness) in your legs or arms. Cannot control when you pee (urinate). Summary A thoracic strain is an injury to the muscles or tendons that attach to the upper back. If told, put ice or heat on the affected area. Rest and return to your normal activities as told by your doctor. Keep all follow-up visits as told by your doctor. This information is not intended to replace advice given to you by your health care provider. Make sure you discuss any questions you have with your health care provider. Document Released: 12/15/2008 Document Revised: 05/17/2019 Document Reviewed: 05/17/2019 [employer] Patient Education 2020 [employer] 08/07/2022 04:15:47 Back Exercises, Rdpu-cd-Wbmy Back Exercises These exercises help to make your trunk and back strong. They also help to keep the lower back flexible. Doing these exercises can help to prevent back pain or lessen existing pain. If you have back pain, try to do these exercises 2 3 times each day or as told by your doctor. As you get better, do the exercises once each day. Repeat the exercises more often as told by your doctor. To stop back pain from coming back, do the exercises once each day, or as told by your doctor. Exercises Single knee to chest Do these steps 3 5 times in a row for each le.Lie on your back on a firm bed or the floor with your legs stretched out. 2.Bring one knee to your chest. 3.Grab your knee or thigh with both hands and hold them it in place. 4.Pull on your knee until you feel a gentle stretch in your lower back or buttocks. 5.Keep doing the stretch for 10 30 seconds. 6.Slowly let go of your leg and straighten it. Pelvic tilt Do these steps 5 10 times in a row: 1.Lie on your back on a firm bed or the floor with your legs stretched out. 2.Bend your knees so they point up to the ceiling. Your feet should be flat on the floor. 3.Tighten your lower belly (abdomen) muscles to press your lower back against the floor. This will make your tailbone point up to the ceiling instead of pointing down to your feet or the floor. 4.Stay in this position for 5 10 seconds while you gently tighten your muscles and breathe evenly. Cat cow Do these steps until your lower back bends more easily: 1.Get on your hands and knees on a firm surface. Keep your hands under your shoulders, and keep your knees under your hips. You may put padding under your knees. 2.Let your head hang down toward your chest. Tighten (contract) the muscles in your belly. Point your tailbone toward the floor so your lower back becomes rounded like the back of a cat. 3.Stay in this position for 5 seconds. 4.Slowly lift your head. Let the muscles of your belly relax. Point your tailbone up toward the ceiling so your back forms a sagging arch like the back of a cow. 5.Stay in this position for 5 seconds. Press-ups Do these steps 5 10 times in a row: 1.Lie on your belly (face-down) on the floor. 2.Place your hands near your head, about shoulder-width apart. 3.While you keep your back relaxed and keep your hips on the floor, slowly straighten your arms to raise the top half of your body and lift your shoulders. Do not use your back muscles. You may change where you place your hands in order to make yourself more comfortable. 4.Stay in this position for 5 seconds. 5.Slowly return to lying flat on the floor. Bridges Do these steps 10 times in a row: 1.Lie on your back on a firm surface. 2.Bend your knees so they point up to the ceiling. Your feet should be flat on the floor. Your armsshould be flat at your sides, next to your body. 3.Tighten your butt muscles and lift your butt off the floor until your waist is almost as high as your knees. If you do not feel the muscles working in your butt and the back of your thighs, slide your feet 1 2 inches farther away from your butt. 4.Stay in this position for 3 5 seconds. 5.Slowly lower your butt to the floor, and let your butt muscles relax. If this exercise is too easy, try doing it with your arms crossed over your chest. Belly crunches Do these steps 5 10 times in a row: 1.Lie on your back on a firm bed or the floor with your legs stretched out. 2.Bend your knees so they point up to the ceiling. Your feet should be flat on the floor. 3.Cross your arms over your chest. 4.Tip your chin a little bit toward your chest but do not bend your neck. 5.Tighten your belly muscles and slowly raise your chest just enough to lift your shoulder blades atiny bit off of the floor. Avoid raising your body higher than that, because it can put too much stress on your low back. 6.Slowly lower your chest and your head to the floor. Back lifts Do these steps 5 10 times in a row: 1.Lie on your belly (face-down) with your arms at your sides, and rest your forehead on the floor. 2.Tighten the muscles in your legs and your butt. 3.Slowly lift your chest off of the floor while you keep your hips on the floor. Keep the back of your head in line with the curve in your back. Look at the floor while you do this. 4.Stay in this position for 3 5 seconds. 5.Slowly lower your chest and your face to the floor. Contact a doctor if: Your back pain gets a lot worse when you do an exercise. Your back pain does not get better 2 hours after you exercise. If you have any of these problems, stop doing the exercises. Do not do them again unless your doctor says it is okay. Get help right away if: You have sudden, very bad back pain. If this happens, stop doing the exercises. Do not do them again unless your doctor says it is okay. This information is not intended to replace advice given to you by your health care provider. Make sure you discuss any questions you have with your health care provider. Document Released: 08/01/2011 Document Revised: 03/24/2019 Document Reviewed: 03/24/2019 [employer] Patient Education 2020 [employer]. 08/07/2022 04:15:47 Acute Back Pain, Adult Acute Back Pain, Adult Acute back pain is sudden and usually short-lived. It is often caused by an injury to the muscles and tissues in the back. The injury may result from: A muscle or ligament getting overstretched or torn (strained). Ligaments are tissues that connect bones to each other. Lifting something improperly can cause a back strain. Wear and tear (degeneration) of the spinal disks. Spinal disks are circular tissue that provides cushioning between the bones of the spine (vertebrae). Twisting motions, such as while playing sports or doing yard work. A hit to the back. Arthritis. You may have a physical exam, lab tests, and imaging tests to find the cause of your pain. Acute back pain usually goes away with rest and home care. Follow these instructions at home: Managing pain, stiffness, and swelling Take yhfx-fci-kplklbm and prescription medicines only as told by your health care provider. Your health care provider may recommend applying ice during the first 24 48 hours after your pain starts. To do this: ?Put ice in a plastic bag. ?Place a towel between your skin and the bag. ?Leave the ice on for 20 minutes, 2 3 times a day. If directed, apply heat to the affected area as often as told by your health care provider. Use theheat source that your health care provider recommends, such as a moist heat pack or a heating pad. ?Place a towel between your skin and the heat source. ?Leave the heat on for 20 30 minutes. ?Remove the heat if your skin turns bright red. This is especially important if you are unable to feel pain, heat, or cold. You have a greater risk of getting burned. Activity Do not stay in bed. Staying in bed for more than 1 2 days can delay your recovery. Sit up and stand up straight. Avoid leaning forward when you sit, or hunching over when you stand. ?If you work at a desk, sit close to it so you do not need to lean over. Keep your chin tucked in. Keep your neck drawn back, and keep your elbows bent at a right angle. Your arms should look like the letter L. ?Sit high and close to the steering wheel when you drive. Add lower back (lumbar) support to your car seat, if needed. Take short walks on even surfaces as soon as you are able. Try to increase the length of time you walk each day. 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 Sitting or standing for long periods of time can put stress on your back. Do not drive or use heavy machinery while taking prescription pain medicine. Use proper lifting techniques. When you bend and lift, use positions that put less stress on your back: ?Bend your knees. ?Keep the load close to your body. ?Avoid twisting. Exercise regularly as told by your health care provider. Exercising helps your back heal faster andhelps prevent back injuries by keeping muscles strong and flexible. Work with a physical therapist to make a safe exercise program, as recommended by your health care provider. Do any exercises as told by your physical therapist. Lifestyle Maintain a healthy weight. Extra weight puts stress on your back and makes it difficult to have good posture. Avoid activities or situations that make you feel anxious or stressed. Stress and anxiety increase muscle tension and can make back pain worse. Learn ways to manage anxiety and stress, such as through exercise. General instructions Sleep on a firm mattress in a comfortable position. Try lying on your side with your knees slightlybent. If you lie on your back, put a pillow under your knees. Follow your treatment plan as told by your health care provider. This may include: ?Cognitive or behavioral therapy. ?Acupuncture or massage therapy. ?Meditation or yoga. Contact a health care provider if: You have pain that is not relieved with rest or medicine. You have increasing pain going down into your legs or buttocks. Your pain does not improve after 2 weeks. You have pain at night. You lose weight without trying. You have a fever or chills. Get help right away if: You develop new bowel or bladder control problems. You have unusual weakness or numbness in your arms or legs. You develop nausea or vomiting. You develop abdominal pain. You feel faint. Summary Acute back pain is sudden and usually short-lived. Use proper lifting techniques. When you bend and lift, use positions that put less stress on your back. Take bixf-xhz-onfzofe and prescription medicines and apply heat or ice as directed by your health care provider. This information is not intended to replace advice given to you by your health care provider. Make sure you discuss any questions you have with your health care provider. Document Released: 06/29/2006 Document Revised: 10/18/2019 Document Reviewed: 02/10/2018 [employer] Patient Education 2020 [employer]. Follow Up Care 08/07/2022 03:22:02 With:Hernandez LEON Address: [address] [place], [place] [id number] Business (1) When:08/10/2022 Comments:Take the prednisone once daily until you have completed the course you can use the Robaxin, Lidoderm patches as needed for pain. Please follow-up with your primary care doctor in the next 2 to 3 days. Please return to ED for any new or worsening symptoms. [facility]09-21-2022 Evaluation + Plan note Future Scheduled Tests Laboratory* HgbA1c 04/02/22 * TSH With T4fr Reflex 04/02/22 * CBC w/ Auto Diff 04/02/22 * Comprehensive Metabolic [facility]02[facility] Work Phone: Evaluation note* Diagnosis Diabetes mellitus screening Screening for diabetes mellitus Missed menses 24 weeks gestation of [facility]* Diagnosis Third trimester state, incidental 28 weeks gestation of Methadone use Opioid type dependence, unspecified abuse [facility]* Diagnosis 30 weeks gestation of Third trimester state, incidental [facility]* Diagnosis related condition, second trimester- Primary 15 weeks gestation of Screen for STD (sexually transmitted disease) Screening examination for venereal disease Screening for malignant neoplasm of cervix Screening for malignant neoplasm of the cervix Encounter for screening for human papillomavirus (HPV) [facility] Diagnosis Guttate psoriasis (CMS/HCC)- Primary Other psoriasis Psoriasis vulgaris (CMS/HCC) Other psoriasis Acne vulgaris Other acne [facility] in [facility]* Diagnosis Third trimester state, incidental 33 weeks gestation of 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 (CMS/HCC) [facility]* Diagnosis 35 weeks gestation of Third trimester state, incidental documented in this [facility]* Diagnosis Third trimester state, incidental 37 weeks gestation of Breech presentation, single or unspecified fetus Request for sterilization documented in this encounter [facility]* Diagnosis Third trimester state, incidental 38 weeks gestation of documented in this encounter [facility] Narrative No data available for this section [facility]: [facility] Discharge instructions Additional Instructions If your symptoms return/worsen or you develop any further concerns or symptoms please see your doctor or return to the emergency department immediately.[facility] Work Phone: Progress note No data available for this section [facility] Summary Purpose Family History No Family History Records Found Relationship Condition Age at Onset Recorded Date/T ellie Not Specified No pertinent family history Unknown Advance Directives No Advanced Directives Records Found Advance Directive Response Recorded Date/ Time Advance Directives No May 14, 2019 8:09pm Advance Directive Response Recorded Date/ Time Advance Directives No May 14, 2019 7:09pm Chief Complaint and Reason for Visit Chief Complaint vomiting/fever/light headed Palpatations Chief Complaint vomiting/fever/light headed Palpatations SOB, Headache, Nausea Chief Complaint chills ,heart racing Chief Complaint chills ,heart racing Ill Chief Complaint rash Chief Complaint Admit Date N92.6 Z13.1 June 15, 2024 1 2:25pm 32 wks preg pain when baby moves Decembe r 2023 1:47pm z34.93 f11.90 July 14, 2024 1: 59pm Additional Source Comments INFORMATION SOURCE (unrecogn ized section and content) DATE CREATED AUTHOR 02/26/2018 [facility] ical Center DATE CREATED AUTHOR AUTHOR'S ORGANIZ ATION 06/06/2019 [facility] DATE CREATED AUTHOR AUTHOR'S ORGANIZ ATION 09/10/2022 Noguera Geovanny [facility] ical Center DATE CREATED AUTHOR AUTHOR'S ORGANIZ ATION 07/21/2024 [facility] DATE CREATED AUTHOR AUTHOR'S ORGANIZ ATION 08/12/2024 [facility] EPIC Care Teams (unrecognized sec tion and content) Team Status: Inactive Member Role Status Dates PHYSICIAN NO FAMILY Primary Care Provider Active Gary Orantes DO Emergency Provider Active Team Status: Inactive Member Role Status Dates Chris Draper MD Emergency Provider Active PHYSICIAN NO FAMILY Primary Care Provider Active Team Status: Active Member Role Status Dates PHYSICIAN NO FAMILY Primary Care Provider Active Team Status: Inactive Member Role Status Dates PHYSICIAN NO FAMILY Primary Care Provider Active Bj Mchugh DO Emergency Provider Active Awilda Zendejas DO RES Active Team Status: Inactive Member Role Status Dates PHYSICIAN NO FAMILY Primary Care Provider Active Bj Mchugh DO Emergency Provider Active Team Status: Inactive Member Role Status Dates PHYSICIAN NO FAMILY Primary Care Provider Active Start: December 19, 2023 End: December 19, 2023 Yassine Ugarte APRN Emergency Provider Active Start: December 19, 2023 End: December 19, 2023 Travel Nurse Relationship Specialty Start Date End Date Unallocated, Yaneli Mckinney MD [address] [place] [address] [place] [address] PCP - General Family Medicine 02/02/24 Travel Nurse Relationship Specialty Start Date End Date Unallocated, Yaneli Mckinney MD [facility] [place] [facility] [place] [address] PCP - General Family Medicine 02/02/24 Travel Nurse Relationship Specialty Start Date End Date Unallocated, Yaneli Mckinney MD [facility] [place] [address] PCP - General Family Medicine 02/02/24 Travel Nurse Relationship Specialty Start Date End Date Unallocated, Yaneli Mckinney MD [facility] [place] [address] PCP - General Family Medicine 02/02/24 Travel Nurse Relationship Specialty Start Date End Date Unallocated, Yaneli Mckinney MD [facility] [place] [address] PCP - General Family Medicine 02/02/24 Travel Nurse Relationship Specialty Start Date End Date Unallocated, Yaneli Mckinney MD [facility] [place] [address] PCP - General Family Medicine 02/02/24 Travel Nurse Relationship Specialty Start Date End Date Unallocated, [place] [address] PCP - General Family Medicine 02/02/24 Travel Nurse Relationship Specialty Start Date End Date Unallocated, Yaneli Mckinney MD [facility] [place] [address] PCP - General Family Medicine 02/02/24 Travel Nurse Relationship Specialty Start Date End Date Unallocated, Yaneli Mckinney MD [facility] [place] [address] PCP - General Family Medicine 02/02/24 Travel Nurse Relationship Specialty Start Date End Date Unallocated, Yaneli Mckinney MD [facility] [place] [address] PCP - General Family Medicine 02/02/24 Travel Nurse Relationship Specialty Start Date End Date Unallocated, MD [address] [place] [address] PCP - General Family Medicine 02/02/24 Travel Nurse Relationship Specialty Start Date End Date Unallocated, Yaneli Mckinney MD [facility] [place] [address] PCP - General Family Medicine 02/02/24 Travel Nurse Relationship Specialty Start Date End Date Unallocated, MD Selena [address] [place] [address] PCP - General Family Medicine 02/02/24 Team Status: Inactive Member Role Status Dates PHYSICIAN NO FAMILY Primary Care Provider Active Start: June 15, 2024 End: June 15, 2024 Alfredo Fuchs DO Attending Provider Active Start : June 15, 2024 End: June 15, 2024 Team Status: Inactive Member Role Status Dates PHYSICIAN NO FAMILY Primary Care Provider Active Start: July 01, 2024 End: July 01, 2024 Wanda Kilgore MD Attending Provider Active St art: July 01, 2024 End: July 01, 2024 Team Status: Inactive Member Role Status Dates PHYSICIAN NO FAMILY Primary Care Provider Active Start: July 14, 2024 End: July 14, 2024 Shea Og PA-C Attending Provider Active Sta rt: July 14, 2024 End: July 14, 2024 Travel Nurse Relationship Specialty Start Date End Date Unallocated, [place] Provider, [address] [place] [address] PCP - General Family Medicine 02/02/24 Goals (unrecognized section and content) Goals may be documented in a n alternate sectionGoals may be documented in an alternate section No data available for this section No data available for this sectionGoals may be documented in an alternate sectionGoals may be documented in an alternate sectionGoals may be documented in an alternate sectionGoals may be documented in an alternate section Reason for Visit (unrecogniz ed section and content) Reason Comments Routine Visit Reason Comments Follow-up FOR RECORDS PERTAINING TO PATIENTS WHO ARE OR HAVE BEEN ENROLLED IN A CHEMICAL DEPENDENCY/SUBSTANCEABUSE PROGRAM, SOME INFORMATION MAY BE OMITTED. This clinical summary was aggregated from multiple sources. Caution should be exercised in using it in the provision of clinical care. This summary normalizes information from multiple sources, and as a consequence, information in this document may materially change the coding, format and clinical context of patient data. In addition, data may be omitted in some cases. CLINICAL DECISIONS SHOULD BE BASED ON THE PRIMARY CLINICAL RECORDS. [employer] provides no warranty or guarantee of the accuracy or completeness of information in this document.
[2024-08-16 06:51] LABS: Bilirubin Urine NEGATIVE (NEGATIVE); Blood Urine NEGATIVE (NEGATIVE); Clarity Urine CLEAR (CLEAR); Color Urine LT. YELLOW (YELLOW); Glucose Urine UA NEGATIVE (NEGATIVE); Ketones Urine NEGATIVE (NEGATIVE); Leukocyte Esterase Urine TRACE (NEGATIVE); Nitrite Urine NEGATIVE (NEGATIVE); Protein Urine TRACE mg/dL (NEG/TRACE); Specific Gravity Urine 1.015 (1.005-1.025); pH Urine 6.5 (5.0-9.0)
[2024-08-16 07:05] LABS: Bacteria Urine SMALL #/HPF (NONE SEEN); Mucus Urine NONE SEEN (NONE SEEN); RBC Urine NONE SEEN #/HPF (0-2); Squamous Epithelial Cell Urine MANY #/LPF (NONE/RARE)
[2024-08-16 07:07] LABS: Amphetamine Screen Urine NEGATIVE (NEGATIVE); Benzodiazepines Screen Urine NEGATIVE (NEGATIVE); Cannabinoid Screen Urine POSITIVE (NEGATIVE); Cocaine Screen Urine NEGATIVE (NEGATIVE); Methamphetamines Screen Urine NEGATIVE (NEGATIVE); Opiate Screen Urine NEGATIVE (NEGATIVE); Phencyclidine Screen Urine NEGATIVE (NEGATIVE); Tricyclic Antidepressant Urine NEGATIVE (NEGATIVE)
[2024-08-16 07:08] LABS: Barbiturates Screen Urine NEGATIVE (NEGATIVE); Buprenorphine Screen Urine NEGATIVE (NEGATIVE); Methadone Screen Urine POSITIVE (NEGATIVE); Oxycodone Screen Urine NEGATIVE (NEGATIVE)
[2024-08-16] MEDS: 0.9 % SODIUM CHLORIDE 1,000 ML 1000 ML IV ×2 (07:16→07:22)
[2024-08-16] MEDS: FAMOTIDINE/PF 20 MG/2 ML VIAL IV (07:17)
[2024-08-16] MEDS: CITRIC ACID/SODIUM CITRATE 30 ML SOLUTION ORACIT SHOHL'S SOLN PO (07:17)
[2024-08-16] MEDS: METOCLOPRAMIDE HCL 10 MG/2 ML VIAL IVP (07:17)
[2024-08-16] MEDS: CEFAZOLIN SODIUM/DEXTROSE,ISO 2 GM/50 ML PIGGYBACK IV ×2 (07:17→16:57)
[2024-08-16 07:30] LABS: Basophils Percent Auto 0.3 % (0.2-2.0); Eosinophils Percent Auto 0.5 % (0.9-7.0); Hematocrit 25.8 % (36.0-48.0); Hemoglobin 7.4 g/dL (12.0-16.0); Immature Granulocytes Abs Auto 0.04 10^3/uL (0.00-0.03); Immature Granulocytes Pct Auto 0.6 % (0.0-0.5); Lymphocytes Absolute Auto 1.5 10^3/uL (1.2-3.8); Lymphocytes Percent Auto 23.5 % (20.5-60.0); Mean Corpuscular HGB Conc 28.7 g/dL (29.9-35.2); Mean Corpuscular Hemoglobin 20.2 pg (26.7-34.0); Mean Corpuscular Volume 70.5 fL (81.0-99.0); Monocytes Absolute Auto 0.4 10^3/uL (0.3-0.8); Monocytes Percent Auto 6.8 % (1.7-12.0); Neutrophils Absolute Auto 4.4 10^3/uL (1.4-6.5); Neutrophils Percent Auto 68.3 % (43.0-75.0); Platelet Count 129 10^3/uL (150-450); Red Blood Count 3.66 10^6/uL (4.20-5.40); Red Cell Distribution Width 19.4 % (11.0-15.0); White Blood Count 6.4 10^3/uL (4.0-11.0)
--- NOTE | 2024-08-16 08:28 | PM.ONB ---
Brief Operative Note Date of procedure: 08/16/24 Pre-op diagnosis general: iup at 39wks, breech presentation, desires permanent sterilization Post-op diagnosis: same as pre-op Procedure: NAME OF PROCEDURE: [ section with bilateral salpingectomy ] PROCEDURE: Patient was taken back to the Operating Room where she was given a spinal anesthesia with Duramorph without difficulty. She was prepped and draped in the normal sterile fashion. A Pfannenstiel skin incision was then made 2?cm above the symphysis pubis and carried down to underlying rectus fascia using a Bovie. The fascia was incised in the midline and extended laterally using King scissors. Two Rosaura clamps were placed on the superior aspect of the fascia and dissected off the underlying rectus muscles. The same was performed on the inferior aspect as well. The muscles were then in the midline. Peritoneum was identified and entered bluntly. The peritoneum was then extended superiorly and inferiorly with good visualization of the bladder. The bladder blade was inserted. Vesicouterine peritoneum was identified, tented up, and entered with Metzenbaum scissors. A bladder flap was then created digitally. The bladder blade was reinserted. A low transverse incision was made on the patient's uterus and extended laterally digitally. The was then delivered atraumatically after the bladder blade was removed in the cephalic position. The cord was clamped and cut. Cord blood was obtained. The infant was handed off to awaiting team. The patient's placenta was spontaneously delivered. The uterus was then exteriorized. The uterus was cleared of all clots and debris. The bladder blade was reinserted. The patient's uterine incision was closed using #0 Vicryl in a running lock fashion. Excellent hemostasis was assured.? The rt tube was identified and grasped with babock, the ligasure was used to transect and ligate the tube in its entirity, this was done on the contralateral side as well. The uterus was then returned to the patient's abdomen. The patient's abdomen was copiously irrigated using warm saline. Peritoneal gutters were cleared of all clots and debris. Again excellent hemostasis was assured. The patient's fascia was closed using #0 Vicryl in a running fashion. The patient's skin was closed using 4-0 Vicryl subcuticularly. The patient tolerated the procedure well. Sponge, lap, and needle counts were correct x2. The patient was taken to the Recovery Room in stable condition. Anesthesia: spinal Surgeon: Alfredo Fuchs Product Safety Consultant: Nita Pat Estimated blood loss (mL): 575 Pathology: other (tubes) Condition: stable Disposition: PACU Urinary Catheter Management Urinary Catheter Management Urethral: Cath placed during this visit: no
--- NOTE | 2024-08-16 08:29 | P.OBPRC_ITS ---
Procedure Pre-op/Post-op diagnoses: Pre-Op/Post-Op Diagnoses Operation Date: 08/16/24 07:30 <No data on this case meets the specified criteria> Procedure: Procedures Operation Date: 08/16/24 07:30 Actual Procedure Side Surgeon p Primary with Bilateral Salpingectomy Bilateral Alfredo Fuchs DO Asset Card Clerk: Nita Pat Estimated blood loss (mL): 575 Disposition: PACU Anesthesia type: Spinal
[2024-08-16] MEDS: BUPIVACAINE LIPOSOME/PF 266 MG/20 ML VIAL INJ (08:43)
[2024-08-16] MEDS: LACTATED RINGER'S SOLUTION 1,000 ML 50 ML IV (08:47)
[2024-08-16] MEDS: KETOROLAC TROMETHAMINE 30 MG/ML VIAL IVP ×3 (11:06→22:54)
--- NOTE | 2024-08-16 13:36 | AC.NBHP ---
NB H&P: HPI Single Date H&P Date: 08/16/24 History of Delivery Date: 08/16/24 Indications for induction: abnormal positioning (Breech) Reason For Visit: Maternal Health Data Maternal Health : 4 Para: 4 Number of Living Children: 4 Other complications: Maternal methadone use Labs Hepatitis B results: Negative Hepatitis C results: Reactive - non detected HIV results: Negative Group B strep results: patient declined Chlamydia results: Negative Gonorrhea results: Negative - Single Citation Sheryl Rao. A proposal for a new method of evaluation of the . Curr.Res.Anesth.Analg. 195;32(4): 260-267 NB Exam General Appearance: General Appearance: alert, active and no acute distress HEENT: HEENT: eyes open, red reflex bilaterally and anterior fontanelle flat/soft Neck: Neck: full range of motion Respiratory: Respiratory: clear to auscultation bilaterally and normal air movement Cardiovasular: Cardiovascular: regular rate and regular rhythm; no murmurs Abdomen: Abdomen: normal bowel sounds, soft and nondistended Genitourinary: Comments: penis with chordae that deviates the glans to the left with a somewhat hooded foreskin Extremities: Extremities: five fingers each hand, five toes each foot and Ortolani and Bunn signs negative bilaterally Skin: Skin: warm, pink and brisk capillary refill Neurology: Neurology: startle reflex PFSH PFSH Social History Highest level of school completed/degree received: GED or equivalent Assessment and Plan Assessment and Plan (1) Normal (single liveborn): (2) Methadone maintenance treatment complicating , antepartum: Plan Routine nursery care Augustin scoring No circumcision with referral to urology
--- NOTE | 2024-08-16 14:24 | RESP.RT ---
Done per nursing
[2024-08-16] MEDS: ACETAMINOPHEN 500 MG TABLET 1000 MG PO (20:29)
[2024-08-17] VITALS (8 sets, daily range): BP systolic 123–127; BP diastolic 76–78; PULSE 66–73; TEMP 36.1–37.6
[2024-08-17] MEDS: METHADONE HCL 10 MG TABLET 180 MG PO (04:00)
[2024-08-17] MEDS: ACETAMINOPHEN 500 MG TABLET 1000 MG PO ×3 (04:02→21:52)
[2024-08-17] MEDS: KETOROLAC TROMETHAMINE 30 MG/ML VIAL IVP ×3 (05:47→20:49)
[2024-08-17 06:26] LABS: Basophils Percent Auto 0.3 % (0.2-2.0); Eosinophils Percent Auto 0.3 % (0.9-7.0); Hematocrit 24.1 % (36.0-48.0); Immature Granulocytes Abs Auto 0.03 10^3/uL (0.00-0.03); Immature Granulocytes Pct Auto 0.3 % (0.0-0.5); Lymphocytes Absolute Auto 2.2 10^3/uL (1.2-3.8); Lymphocytes Percent Auto 22.8 % (20.5-60.0); Mean Corpuscular HGB Conc 27.8 g/dL (29.9-35.2); Mean Corpuscular Hemoglobin 19.9 pg (26.7-34.0); Mean Corpuscular Volume 71.7 fL (81.0-99.0); Monocytes Absolute Auto 0.6 10^3/uL (0.3-0.8); Neutrophils Absolute Auto 6.7 10^3/uL (1.4-6.5); Neutrophils Percent Auto 70.3 % (43.0-75.0); Platelet Count 118 10^3/uL (150-450); Red Blood Count 3.36 10^6/uL (4.20-5.40); Red Cell Distribution Width 19.6 % (11.0-15.0); White Blood Count 9.6 10^3/uL (4.0-11.0)
[2024-08-17 06:33] LABS: Hemoglobin 6.7 g/dL (12.0-16.0)
--- NOTE | 2024-08-17 07:32 | W.PC.ACHO ---
Registration Status: ADM IN Primary Language: Montenegrin Preferred Language: Montenegrin Report given to Yo at 0720. Care relinquished. Active Medications Generic Name Dose Route Start Last Admin Trade Name Freq PRN Reason Stop Dose Admin Acetaminophen 1,000 mg 08/16/24 19:58 08/17/24 04:02 Acetaminophen 500 Mg Tablet PO 1,000 mg Q8H PRN Administration Pain Al Hydroxide/Mg Hydroxide 2,400 mg 08/16/24 08:29 Magnesium Hydroxide 2,400 Mg/10 Ml Oral.Susp PO Q6H PRN Dyspepsia Diphenhydramine HCl 25 mg 08/16/24 08:29 Diphenhydramine Hcl 50 Mg/Ml Vial IV 08/17/24 08:29 Q6H PRN Itching Diphtheria/Pertussis/Tetanus Vacc 0.5 ml 08/18/24 09:00 Adacel Diph,Pertuss(Acell),Tet Vac/Pf 0.5 Ml Adult Syringe IM 08/18/24 09:01 .ONCE ONE Docusate Sodium 100 mg 08/17/24 09:00 Docusate Sodium 100 Mg Capsule PO BID FEMI Enoxaparin Sodium 40 mg 08/16/24 21:00 08/16/24 21:00 Enoxaparin Sodium 40 Mg/0.4 Ml Syringe SUBQ Not Given Q24H FEMI Sodium Chloride 1,000 mls @ 125 mls/hr 08/16/24 06:00 Sodium Chloride 0.9% 1,000 Ml IV .Q8H FEMI Oxytocin/Sodium Chloride 20 units in 1,000 mls @ 125 mls/hr 08/16/24 05:57 Pitocin 20 Unit/1,000 Ml-Ns IV Q8H PRN POST DELIVERY Promethazine HCl 25 mg/ Sodium 51 mls @ 204 mls/hr 08/16/24 08:29 Chloride IV Q6H PRN Nausea And Vomiting Lactated Ringer's 1,000 mls @ 125 mls/hr 08/16/24 08:29 Lactated Ringers IV .Q8H PRN IF NOT TOLERATING PO FLUIDS OR Ibuprofen 800 mg 08/16/24 08:29 Ibuprofen 400 Mg Tablet PO Q8H PRN Pain Ketorolac Tromethamine 30 mg 08/16/24 08:29 08/17/24 05:47 Ketorolac Tromethamine 30 Mg/Ml Vial IVP 08/18/24 08:30 30 mg Q6H PRN Administration Pain Measles/Mumps/Rubella Vaccine Live 0.5 ml 08/18/24 09:00 Measles,Mumps,Rubella Vacc/Pf 0.5 Ml Vial SQ 08/18/24 09:01 .ONCE ONE Methadone HCl 180 mg 08/17/24 04:30 08/17/24 04:00 Methadone Hcl 10 Mg Tablet PO 180 mg Q24H FEMI Administration Ondansetron HCl 4 mg 08/16/24 08:29 Ondansetron Pf 4 Mg/2 Ml Vial IV Q6H PRN Nausea And Vomiting Ondansetron HCl 4 mg 08/16/24 08:29 Ondansetron 4 Mg Rapdis Tablet PO Q6H PRN Nausea And Vomiting Senna 17.2 mg 08/16/24 20:00 Sennosides 8.6 Mg Tablet PO QHS PRN Constipation Simethicone 80 mg 08/16/24 08:29 Simethicone 80 Mg Tab.Chew PO QID PRN Abdominal Distention Diet Category Date Time Status Regular Consistency Diet Diet 08/16/24 08:29 Active Neurology Patient orientation (short person,place,time,situation list) Respiratory Pulse Oximetry 98 Pulse Oximetry 100 Pulse Oximetry 98 Pulse Oximetry 96 Pulse Oximetry 98 Pulse Oximetry 97 Pulse Oximetry 97 Pulse Oximetry 98 Pulse Oximetry 97 Pulse Oximetry 97 Pulse Oximetry 98 Pulse Oximetry 97 Pulse Oximetry 98 Pulse Oximetry 97 Pulse Oximetry 96 Pulse Oximetry 97 Pulse Oximetry 96 Pulse Oximetry 96 Pulse Oximetry 95 Pulse Oximetry 96 Pulse Oximetry 94 Pulse Oximetry 96 Pulse Oximetry 97 Pulse Oximetry 95 Pulse Oximetry 95 Pulse Oximetry 96 Pulse Oximetry 97 Pulse Oximetry 97 Pulse Oximetry 98 Pulse Oximetry 97 Oxygen Delivery Method Room Air Oxygen Delivery Method Room Air Oxygen Delivery Method Room Air Oxygen Delivery Method Room Air Oxygen Delivery Method Room Air Oxygen Delivery Method Room Air Oxygen Delivery Method Room Air Cardiology Heart Sounds Regular Catheter Urinary Catheter Date of 08/16/24 Insertion [Urethral] Urinary Catheter Date of 08/16/24 Insertion [Urethral] Urinary Catheter Time of 08:00 Insertion [Urethral] Urinary Catheter Time of 08:00 Insertion [Urethral]
--- NOTE | 2024-08-17 10:31 | P.OBPN_ITS ---
OB - PN: Subj Subjective Patient comments: no complaints and pain well controlled [place] status: doing well Exam Constitutional Vital Signs, click to edit/add: Last Vital Signs Temp 97.6 F 08/17/24 04:00 Pulse 60 08/16/24 16:50 Resp 16 08/17/24 04:00 BP 123/78 08/17/24 01:14 Pulse Ox 98 08/16/24 20:31 O2 Del Method Room Air 08/17/24 04:00 Documenting provider has reviewed patient's vital signs: yes Common normals: no apparent distress Respiratory Common normals: normal respiratory effort and clear to auscultation bilaterally Cardio Common normals: regular rate and regular rhythm GI Common normals: Normal to inspection, nondistended, normoactive bowel sounds present Extremity Common normals: normal to inspection and no clubbing, cyanosis or edema Results Labs Labs: Short CBC 08/17/24 Range/Units 06:10 WBC 9.6 (4.0-11.0) 10^3/uL Hgb 6.7 L* (12.0-16.0) g/dL Hct 24.1 L (36.0-48.0) % Plt Count 118 L (150-450) 10^3/uL Urinary Catheter Management Urinary Catheter Management Urethral: Cath placed during this visit: yes Urethral indwelling: No Insertion date: 08/16/24 Insertion time: 08:00 OB - PN: A/P Assessment and Plan (1) Normal (single liveborn): (2) Methadone maintenance treatment complicating , antepartum: Plan - day: 1 Plan: routine postop care and other Time Spent with Patient Time: Total time spent is greater than 50% in coordination of care (as documented) at patient's floor/unit and/or counseling patient: Total time spent with greater than 50% in coordination of care (as documented) at patient's floor/unit and/or counseling patient: less than 15 minutes
[2024-08-17] MEDS: DOCUSATE SODIUM 100 MG CAPSULE PO ×2 (10:51→20:49)
--- NOTE | 2024-08-17 11:54 | PC.NURSE ---
up to BR, pericare done, pt very tentative-slow and hesitant to move and returns to rocking chair
--- NOTE | 2024-08-17 13:02 | PC.NURSE ---
Requested a pump to collect more milk for baby. Given pump kit with explanation for hand pump use. Verbalized understanding.
--- NOTE | 2024-08-17 17:35 | RESP.RT ---
Done per nursing
[2024-08-18 01:46] VITALS: BP 118/69; TEMP 36.9
[2024-08-18] MEDS: KETOROLAC TROMETHAMINE 30 MG/ML VIAL IVP (04:15)
[2024-08-18] MEDS: METHADONE HCL 10 MG TABLET 180 MG PO (04:16)
[2024-08-18] MEDS: ACETAMINOPHEN 500 MG TABLET 1000 MG PO ×2 (06:26→15:04)
--- NOTE | 2024-08-18 08:11 | PM.OBPN ---
OB - PN: Subj Subjective Patient comments: no complaints and pain well controlled status: doing well Exam Constitutional Vital Signs, click to edit/add: Last Vital Signs Temp 98.5 F 08/18/24 01:46 Pulse 66 08/17/24 17:00 Resp 16 08/17/24 17:00 BP 118/69 08/18/24 01:46 Pulse Ox 98 08/16/24 20:31 O2 Del Method Room Air 08/18/24 01:00 Documenting provider has reviewed patient's vital signs: yes Common normals: no apparent distress Respiratory Common normals: clear to auscultation bilaterally Cardio Common normals: regular rate and regular rhythm GI Common normals: Normal to inspection, nondistended, normoactive bowel sounds present Extremity Common normals: no clubbing, cyanosis or edema and no calf tenderness Urinary Catheter Management Urinary Catheter Management Urethral: Cath placed during this visit: yes Urethral indwelling: No Insertion date: 08/16/24 Insertion time: 08:00 OB - PN: A/P Assessment and Plan (1) Normal (single liveborn): (2) Methadone maintenance treatment complicating , antepartum: Plan - day: 2 Plan: routine postop care, discharge home and other (fu 1wk) Time Spent with Patient Time: Total time spent is greater than 50% in coordination of care (as documented) at patient's floor/unit and/or counseling patient: Total time spent with greater than 50% in coordination of care (as documented) at patient's floor/unit and/or counseling patient: less than 15 minutes
[2024-08-18 08:29] VITALS: BP 124/83
[2024-08-18] MEDS: DOCUSATE SODIUM 100 MG CAPSULE PO (08:38)
[2024-08-18 08:40] VITALS: TEMP 36.7
[2024-08-18] MEDS: IBUPROFEN 400 MG TABLET 800 MG PO ×2 (10:05→18:07)
--- NOTE | 2024-08-18 10:20 | SWNOTE1 ---
SW consulted due to positive Methadone and THC drug screen on admission. SW spoke to nurse and reviewed chart. Pt is prescribed methadone, previous drug history. Pt is doing well with baby, first so struggling with pain. Has not seen father of baby, but pt's mother was here for . SW met with pt to discuss positive drug screens. Pt does have a 3 and 5 year old at home. Pt does live at home by herself, but her mother and grandmother will be staying with her once she returns home and will assist her as needed. Father baby is not involved at this time. Father of 3 and 5 year old is involved with those children. Pt voiced she does have good support from her family. Pt does have everything she needs at home and does have WIC. She will contact WIC once home. Pt is . SW spoke with her about her past drug use. 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 She was at the [facility] in [place], but then transitioned to a smaller clinic, [facility] in [place]. Initially she went daily to counseling, now she has graduated to monthly. She has access to a counselor anytime if needed. She voiced she is doing well. She is prescribed the Methadone from Dr. Bj Merchant at the outpt clinic, verified script in chart. She also has her medical Marijuana card for anxiety and to help her sleep. Pt provided a picture of card from her phone. SW and pt did speak about post depression and to be aware of signs/symptoms and to reach out to her support as needed. 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 Pt has no questions at this time. SW to follow as needed. Report called to [facility] CPS. HIPAA form filled out and sent to Venecia Raymond.
[2024-08-18 16:32] VITALS: BP 114/65
[2024-08-18 16:42] VITALS: TEMP 36.7
[2024-08-19] MEDS: ACETAMINOPHEN 500 MG TABLET 1000 MG PO ×2 (00:10→08:24)
[2024-08-19 00:11] VITALS: BP 109/70
[2024-08-19 00:12] VITALS: TEMP 36.6
[2024-08-19] MEDS: IBUPROFEN 400 MG TABLET 800 MG PO ×2 (04:10→11:50)
[2024-08-19] MEDS: METHADONE HCL 10 MG TABLET 180 MG PO (04:14)
--- NOTE | 2024-08-19 07:52 | PM.OBPN ---
OB - PN: Subj Subjective Patient comments: no complaints and pain well controlled [place] status: doing well Exam Constitutional Vital Signs, click to edit/add: Last Vital Signs Temp 97.9 F 08/19/24 00:12 Pulse 66 08/17/24 17:00 Resp 18 08/19/24 00:12 BP 109/70 08/19/24 00:11 Pulse Ox 98 08/16/24 20:31 O2 Del Method Room Air 08/19/24 00:12 Respiratory Common normals: normal respiratory effort and clear to auscultation bilaterally Cardio Common normals: regular rate and regular rhythm GI Common normals: Normal to inspection, nondistended, normoactive bowel sounds present Extremity Common normals: normal to inspection and no clubbing, cyanosis or edema Urinary Catheter Management Urinary Catheter Management Urethral: Cath placed during this visit: yes Urethral indwelling: No Insertion date: 08/16/24 Insertion time: 08:00 OB - PN: A/P Assessment and Plan (1) Normal (single liveborn): (2) Methadone maintenance treatment complicating , antepartum: Plan - day: 3 Plan: routine postop care and discharge home Time Spent with Patient Time: Total time spent is greater than 50% in coordination of care (as documented) at patient's floor/unit and/or counseling patient: Total time spent with greater than 50% in coordination of care (as documented) at patient's floor/unit and/or counseling patient: less than 15 minutes
[2024-08-19 08:22] VITALS: BP 120/84; PULSE 77; TEMP 36.2; O2SAT 98
[2024-08-19] MEDS: DOCUSATE SODIUM 100 MG CAPSULE PO (08:23)
[2024-08-22 14:06] LABS: Cannabinoid Positive
[2024-08-22 14:19] LABS: Carboxy THC Conf, MS, UR 117 ng/mL
== END 2024-08-19 12:51 | disposition home or self-care (01) | DRG 539 ==
PROVIDERS: Admitting Provider Obstetrics & Gynecology; Visit Provider Obstetrics & Gynecology
PROC: 10D00Z1 Extraction of Products of Conception, Low, Open Approach (ICD-10-PCS; CPT 59514; principal; 2024-08-16 07:30)
DX: O32.1XX0 Maternal care for breech presentation, not applicable or unspecified (principal); O99.324 Drug use complicating childbirth; F11.20 Opioid dependence, uncomplicated; Z3A.39 39 weeks gestation of pregnancy; Z37.0 Single live birth; F12.90 Cannabis use, unspecified, uncomplicated
CPT/HCPCS: 36415; 51702; 64488; 80307; 80349; 80358; 81001; 85025; 86850; 86900; 86901; 88302; 94667; 94668; J0665; J0690; J1100; J1885; J2274; J2371; J2405; J2590; J2765; J3490